=== PATIENT | male | born 1985 | race Caucasian/White ===

== ENCOUNTER 2020-10-16 08:25 | Emergency (ER) | payer SELFPAY ==
[2020-10-16 08:37] VITALS: BP 182/116; PULSE 90; RESP 20; TEMP 36.9; O2SAT 97; BMI 44.6
--- NOTE | 2020-10-16 08:37 | ED_ITS ---
HPI - Skin/Abscess/Foreign Bdy General Chief complaint: Wound/Laceration Stated complaint: abscess Time Seen by Provider: 10/16/20 08:37 Source: patient Mode of arrival: ambulatory Limitations: language barrier History of Present Illness HPI narrative: abscess to left buttock, started 3 days prior Onset (ago): day(s) Tetanus up to date: unsure Location: buttocks Severity: moderate Quality: burning Pain Consistency: constant Relieving factors: none Associated symptoms: denies other symptoms Related Data Previous Rx's Medication Instructions Recorded cephalexin [Keflex] 500 mg PO QID #28 cap 10/16/20 Allergies Allergy/AdvReac Type Severity Reaction Status Date / Time aspirin [ASPIRIN] Allergy Unknown UNK, Verified 10/16/20 08:41 anaphylaxis Review of Systems Constitutional: Constitutional: Reports no additional constitutional complaints Eyes: Eyes: Reports no additional eye complaints ENT: Denies dizziness Cardiovascular: Cardiovascular: Reports no additional cardiovascular complaints Respiratory: Respiratory: Reports as per HPI Gastrointestinal: Gastrointestinal: Reports no additional gastrointestinal complaints Musculoskeletal: Musculoskeletal: Reports no additional musculoskeletal complaints Integumentary/Breasts: Skin/Breast: Denies rash Neurologic: Reports system reviewed and no additional complaints, except as documented, Denies dizziness and Denies Sensory deficit (Neuro) Psychiatric: Psychiatric: Denies anxiety [facility] Past Medical History Medical History No known health problems Surgical History No significant past surgical history Social History Social History Advance Directives: No Advance Directives Information Provided: No Physical Exam Vital Signs: Vital Signs: Last Vital Signs Temp 98.4 F 10/16/20 08:37 Pulse 90 10/16/20 08:37 Resp 20 10/16/20 08:37 BP 182/116 H 10/16/20 08:37 Pulse Ox 97 10/16/20 08:37 Body Mass Index 44.6 Const: Nutritional Appearance: obese Orientation/consciousness: oriented to person and patient oriented x3 Limitations: no limitations HENMT: Head: Yes normal to inspection Ears: external ears normal General nose exam: Normal external nose present Mouth: Normal oral and palatal mucosa present and oropharynx normal Throat: Yes posterior oropharynx normal Eyes: General: appearance normal, both eyes and all related structures Neck: Other: supple Neck: Yes normal visual inspection Chest: Chest palpation & inspection: normal inspection of the chest Resp: Auscultation: clear to auscultation bilaterally Cardio: Jugular venous distension: no JVD Rate: regular rate Rhythm: regular rhythm Heart sounds: S1 normal heart sound present and S2 normal heart sound present GI: Inspection: Yes normal to inspection Palpation (GI): Soft to palpation, nontender and No hepatosplenomegaly present Auscultation: normal bowel sounds : General: Yes no CVA tenderness Back/Spine/Pelvis: Back: no CVA tenderness Skin: Other: Left buttock with area of erythema and induration and drainage Neuro: General: oriented to person and patient oriented x3 Cranial nerves: Yes CN's II-XII intact bilaterally Motor exam (neuro): 5/5 motor strength present throughout Sensory Exam: No Sensory deficit (Neuro) Extrem: General: Yes normal to inspection Psych: Appearance: grossly normal Procedures Procedure Narrative Procedure Narrative: Patient prepped and draped in sterile fashion. !% epi with lidocaine used for anesthesia. 11 blade used, pus removed, packing placed. Patient tolerated procedure well Discharge Plan Discharge Clinical Impression: Abscess Patient Disposition: Home, Self-Care Instructions: Abscess (ED) Additional Instructions: remove packing in 48 hours in the shower Prescriptions: New cephalexin [Keflex] 750 mg capsule 500 mg PO QID Qty: 28 RF: 0 Referrals: Physician,None [Primary Care Provider] - 2 days Stand Alone Forms: Work/School Release
[2020-10-16] MEDS: cephALEXin 500 MG CAPSULE PO (09:55)
== END 2020-10-16 10:03 | disposition home or self-care (01) ==
PROVIDERS: Emergency Provider Emergency Medicine
DX: L02.31 Cutaneous abscess of buttock (principal); Z79.899 Other long term (current) drug therapy
CPT/HCPCS: 10060; 99283

== ENCOUNTER 2020-10-18 12:03 | Emergency (ER) | payer SELFPAY ==
[2020-10-18 12:15] VITALS: BP 181/123; PULSE 98; RESP 16; TEMP 36.6; O2SAT 98; BMI 45.3
--- NOTE | 2020-10-18 13:07 | ED_ITS ---
HPI - Recheck/Abnormal Lab/Rx General Chief Complaint: Wound/Laceration Stated Complaint: wound check Time Seen by Provider: 10/18/20 12:40 Source: patient Mode of arrival: ambulatory Limitations: no limitations History of Present Illness complaint: wound re-check Initial visit (ago): day(s) (2 days ago) Initial visit for: cellulitis and abscess Returns today for: wound recheck, cellulitis follow-up and needs work/school note Symptoms since prior visit: no new symptoms and improved Context: planned re-check Associated symptoms: none Treatments prior to arrival: other (Patient prescribed Keflex 750 mg q.i.d. taking as prescribed per patient) Related Data Previous Rx's Medication Instructions Recorded cephalexin [Keflex] 500 mg PO QID #28 cap 10/16/20 doxycycline monohydrate 100 mg PO BID 10 Days #20 cap 10/18/20 Allergies Allergy/AdvReac Type Severity Reaction Status Date / Time aspirin [ASPIRIN] Allergy Unknown UNK, Verified 10/16/20 08:41 anaphylaxis Review of Systems Review of Systems: Constitutional : No Fever, No Chills, Cardiovascular : No Chest Pain, No SOB Respiratory : No Dyspnea Gastrointestinal : No abdominal pain Musculoskeletal : No Joint Swelling Skin : positive skin wound/cellulitis, No laceration, No Foreign bodies, No rash Neuro : No Weakness, No Numbness/tingling Psych : No SI/HI/thoughts of self injury Yes all other systems are reviewed and are negative [facility] Past Medical History Attestation statement: The following information was validated with the patient. Medical History No known health problems Surgical History No significant past surgical history Social History Social History Smoking Status: Current every day smoker Use of substances other than those prescribed or required for medical reasons: Yes Substance Use Type: Marijuana Substance Use Frequency: Socially Advance Directives: No Advance Directives Information Provided: No Physical Exam Vital Signs: Vital Signs: Last Vital Signs Temp 97.9 F 10/18/20 12:15 Pulse 98 10/18/20 12:15 Resp 16 10/18/20 12:15 BP 181/123 H 10/18/20 12:15 Pulse Ox 98 10/18/20 12:15 Body Mass Index 45.3 vital signs have been reviewed as normal and appeared to be correct. Blood pressure hypertensive at 188/123. Heart rate normal. Respiration rate normal. Temperature normal. Oxygen saturation normal. Appearance: Alert. Oriented X3. No acute distress. Head: Normal external exam. Normocephalic. Atraumatic. No Sorto signs noted. No raccoon eyes noted Eyes: PERRLA. EOMI. Conjunctiva and sclera normal. Eyelids normal. ENT: Pharynx normal. Uvula midline. Moist mucous membranes. Neck: Normal inspection. Neck supple. FROM. No adenopathy. Thyroid Normal. No meningeal signs. No neck mass noted. CVS: Normal heart rate and rhythm. Heart sound normal. No murmurs noted. Pulses normal throughout. Respiratory: No respiratory distress. Painless inspiration. Breath sounds normal. Back: Full range of motion noted. : To left buttocks patient has wound with mild surrounding erythema around the margins with packing in place no purulent drainage/fluctuance noted or active bleeding at this time. Skin: Skin warm and dry. Normal skin color. Normal skin turgor. No rashes/lesions/lacerations noted. Extremities: Extremities exhibit normal range of motion. Extremities nontender. Neuro: Oriented X 3. No motor deficit. No sensory deficit. Reflexes normal. Course Course Course Narrative: 34-year-old male presenting to the ED for wound recheck/packing removal. It was I&D 2 days ago was placed on Keflex 750 mg q.i.d. taking as prescribed. Denies any additional complaints or concerns at this time. Reports improvement in symptoms. On exam patient has mild surrounding erythema to the wound margins otherwise no purulent drainage or active bleeding or fluctuance noted. Patient was noted to be hypertensive at 181/123 although denies any cardiac related complaints. Therefore we will not be repacked at this time clean dressing placed wound was irrigated and instructed to continue taking his antibiotics as prescribed and to return if any new or worsening symptoms to follow up with primary care provider. Patient understands agrees with this plan. MDM - Recheck/Abnormal Lab/Rx Medical Records Attestation: I reviewed the patient's medical records. Discharge Plan Discharge Clinical Impression: Visit for wound check, Hypertension Patient Disposition: Home, Self-Care Instructions: Wound Infection (ED), Hypertension (ED) Prescriptions: New doxycycline monohydrate 100 mg capsule 100 mg PO BID 10 Days Qty: 20 RF: 0 No Action cephalexin [Keflex] 750 mg capsule 500 mg PO QID Qty: 28 RF: 0 Referrals: Physician,None [Primary Care Provider] - 2 days (Your PCP follow-up for recheck blood pressure within a week) Stand Alone Forms: Work/School Release Print Language: Indian
== END 2020-10-18 13:34 | disposition home or self-care (01) ==
PROVIDERS: Emergency Provider Emergency Medicine Emergency Medical Services
DX: Z48.00 Encounter for change or removal of nonsurgical wound dressing (principal); I10 Essential (primary) hypertension; F12.90 Cannabis use, unspecified, uncomplicated; Z79.899 Other long term (current) drug therapy
CPT/HCPCS: 99283

== ENCOUNTER 2020-12-08 07:58 | Emergency (ER) | payer OTHER, SELFPAY ==
--- NOTE | ~2020-12-08 | XR_ITS ---
EXAMINATION: XR CHEST CLINICAL INFORMATION: Chest pain. COMPARISON: Chest 01/26/2019. TECHNIQUE: Frontal view of the chest was obtained. FINDINGS: No significant abnormality is noted involving the heart, lungs, mediastinum, bony thorax or soft tissues. XR/XR chest 1V IMPRESSION: Unremarkable chest exam.
--- NOTE | 2020-12-08 08:03 | ECG_ITS ---
Test Reason : CHEST PAIN Blood Pressure : / mmHG Vent. Rate : 090 BPM Atrial Rate : 090 BPM P-R Int : 164 ms QRS Dur : 084 ms QT Int : 368 ms P-R-T Axes : 049 023 067 degrees QTc Int : 450 ms Normal sinus rhythm Normal ECG No previous ECGs available Referred By: Monserrat Caldera Electronically Signed By:AMY ARCE
[2020-12-08 08:05] VITALS: BP 185/117; PULSE 84; RESP 12; TEMP 36.9; O2SAT 99; BMI 98.0
[2020-12-08 08:17] VITALS: BP 185/117; PULSE 91; RESP 12; O2SAT 99
--- NOTE | 2020-12-08 08:18 | ED_ITS ---
HPI - Chest Pain General Chief Complaint: Chest Pain Stated Complaint: CHEST PAIN Time Seen by Provider: 12/08/20 08:03 Source: patient Mode of arrival: ambulatory Limitations: no limitations History of Present Illness HPI narrative: 34 y/o male with history childhood asthma, obesity, active smoker who presents to the ER with left sided chest pain that started this morning when he woke up. He states the pain is in the upper left portion of his chest, it is sharp, it comes and goes and it radiates to both of his arms. At it's worst it was 8/10 this morning, currently a 6/10. He is not SOB, coughing, nauseated or having any abdominal pain. MD complaint: chest pain Pertinent past history: asthma Onset (ago): hour(s) (3) Timing of current episode: episodic Prior episodes: No Onset: during rest Pain location: substernal and left chest Pain radiation: right arm and left arm Severity: moderate Pain scale (0-10): 6 Quality: sharp Relieving factors: nothing Exacerbating factors: nothing Treatment prior to arrival: none Risk Factors Coronary artery disease risk factors: smoking history Thoracic aortic dissection risk factors: none Related Data Previous Rx's Medication Instructions Recorded cephalexin [Keflex] 500 mg PO QID #28 cap 10/16/20 doxycycline monohydrate 100 mg PO BID 10 Days #20 cap 10/18/20 albuterol sulfate [Ventolin HFA] 2 puff INHALATION Q4-6H PRN #6.7 g 12/08/20 hydrochlorothiazide 12.5 mg PO QAM #30 tab 12/08/20 prednisone 10 mg PO PER PKG DIR #48 ea 12/08/20 Allergies Allergy/AdvReac Type Severity Reaction Status Date / Time aspirin [ASPIRIN] Allergy Unknown UNK, Verified 10/16/20 08:41 anaphylaxis Review of Systems Review of Systems: Constitutional: No Fever, No Chills ENT/Mouth: No sore throat, No Rhinorrhea, No Swallowing Difficulty Eyes: No Eye Pain, No Swelling, No Redness Cardiovascular: + Chest Pain, No SOB, No Orthopnea, No Edema Respiratory: No Cough, No Sputum, + Wheezing, No dyspnea Gastrointestinal: No Nausea, No Vomiting, No Diarrhea, No abdominal Pain Genitourinary: No Dysuria, No Urinary Frequency, No Hematuria Musculoskeletal: No joint pain, No Myalgias Skin: No Skin Lesions, No rash Neuro: No Weakness, No Numbness, No Dizziness, No Headache Psych: No Anxiety/Panic, No Depression Heme/Lymph: No Bruising, No Lymphadenopathy PMFSH Past Medical History Attestation statement: The following information was validated with the patient. Medical History No known health problems Surgical History No significant past surgical history Social History Social History Patient Tobacco Use Status: Current everyday Tobacco user Smoked in Last 30 Days: Yes Use of substances other than those prescribed or required for medical reasons: No Substance Use Type: Marijuana Advance Directives: Yes Advance Directives Information Provided: Yes Advance Directives on File: No Physical Exam Vital Signs: Vital Signs: Last Vital Signs Temp 98.5 F 12/08/20 08:05 Pulse 77 12/08/20 12:00 Resp 16 12/08/20 12:00 BP 150/101 H 12/08/20 12:00 Pulse Ox 98 12/08/20 12:00 Body Mass Index 98.0 Appearance: Alert. Oriented X3. No acute distress. Eyes: Pupils equal, round and reactive to light. ENT: Pharynx normal. Neck: Normal inspection. Neck supple. CVS: Normal heart rate and rhythm. Pulses normal. Respiratory: No respiratory distress. Breath sounds normal. Abdomen: Obese, soft and nontender. +BS x4 Skin: Skin warm and dry. Normal skin color. Normal skin turgor. No rashes. Extremities: No lower extremity edema. Negative Sangeeta's sign. Neuro: Oriented X 3. No motor deficit. No sensory deficit. Course Course Course Narrative: 34 y/o male presenting with sharp intermittent chest pain. EKG is normal. Wheezy on exam with elevated BP. No respiratory distress and no hypoxia. Denies hx hypertension but is overweight, active smoker. No family history of PE or early ACS. Will get CXR and basic lab work up. Will treat with albuterol nebulizer and IV steroids and reassess. Will closely monitor BP. No headache or vision changes. Doubt dissection, pulses are equal. Reevaluation(s) Reevaluation #1: BP remains elevated. Given PO lopressor. Sleeping comfortably at this time getting neb. CXR is negative. Troponin negative, given chest pain is <6 hours will get a 2nd troponin. Reevaluation #2: 2nd troponin is negative. BP improved 150's systolic. Chest pain is resolved. His lungs are now clear. He is stable discharge with treatment for asthma exacerbation and will initiate low dose HCTZ. Dietary modifications were discussed as well as weight loss, smoking cessation and following up with PCP. Patient expressed understanding and will come back to the ER if chest pain recurs or if he develops SOB. MDM - Chest Pain Lab Data Result diagrams: 12/08/20 08:34 12/08/20 08:34 Labs: Lab Results 12/08/20 12/08/20 12/08/20 Range/Units 08:33 08:34 08:34 WBC 8.2 (4.8-10.8) X10*3/uL RBC 6.06 H (4.60-5.80) X10*6/uL Hgb 16.8 (14.0-18.0) g/dl Hct 50.4 (42-52) % MCV 83.2 (80-98) fL MCH 27.7 (27.0-33.0) pg MCHC 33.3 (31.0-36.0) g/dl RDW 12.3 (11.0-16.0) % Plt Count 256 (160-400) X10*3/uL MPV 9.4 (9.4-12.4) fL Immature Gran % (Auto) 0.2 (0.0-0.4) % Neut % (Auto) 53.4 (45-73) % Lymph % (Auto) 31.6 (20-40) % Anderson % (Auto) 7.7 (2-11) % Eos % (Auto) 6.1 H (0-4) % Baso % (Auto) 1.0 (0-2) % Lymph # (Auto) 2.6 (1.2-4.9) X10*3/uL Anderson # (Auto) 0.6 (0.1-1.2) X10*3/uL Eos # (Auto) 0.5 H (0.0-0.4) X10*3/uL Baso # (Auto) 0.1 (0.0-0.2) X10*3/uL Abs Immat Gran (auto) 0.02 (0.00-0.03) X10*3/uL Absolute Neuts (auto) 4.4 (2.0-8.3) X10*3/uL Absolute Nucleated RBC 0.000 (0.0-0.012) X10*3/uL Nucleated RBC % (auto) 0.0 (0.0-0.2) /100WBC Hold Blue Top SEE NOTE Sodium (135-145) mmol/L Potassium (3.3-5.1) mmol/L Chloride (96-108) mmol/L Carbon Dioxide (22-29) mmol/L Anion Gap (12-20) BUN (9-16) mg/dL Creatinine (0.5-1.4) mg/dL Estim Creat Clear Calc Estimated GFR Random Glucose (60-115) mg/dL Calcium (8.4-10.2) mg/dL Magnesium (1.6-2.6) mg/dL Total Bilirubin (0.0-1.0) mg/dL Direct Bilirubin (0.0-0.5) mg/dL AST (5-37) U/L ALT (0-40) U/L Alkaline Phosphatase (39-117) U/L Troponin I High Sens (<3.5-35.0) ng/L B-Natriuretic Peptide (<100) pg/mL Total Protein (6.5-8.0) g/dL Albumin (3.5-5.0) g/dL Urine Color Urine Appearance Urine pH (5.0-8.0) Ur Specific Francisco (1.005-1.025) Urine Protein (NEG-TRACE) MG/DL Urine Glucose (UA) (NEG) MG/DL Urine Ketones (NEG) MG/DL Urine Blood (NEG) Urine Nitrite (NEG) Ur Leukocyte Esterase (NEG) COVID-19 (AYSE) Negative (Negative) COVID-19 Clin Com See Note 12/08/20 12/08/20 12/08/20 Range/Units 08:34 08:34 11:26 WBC (4.8-10.8) X10*3/uL RBC (4.60-5.80) X10*6/uL Hgb (14.0-18.0) g/dl Hct (42-52) % MCV (80-98) fL MCH (27.0-33.0) pg MCHC (31.0-36.0) g/dl RDW (11.0-16.0) % Plt Count (160-400) X10*3/uL MPV (9.4-12.4) fL Immature Gran % (Auto) (0.0-0.4) % Neut % (Auto) (45-73) % Lymph % (Auto) (20-40) % Anderson % (Auto) (2-11) % Eos % (Auto) (0-4) % Baso % (Auto) (0-2) % Lymph # (Auto) (1.2-4.9) X10*3/uL Anderson # (Auto) (0.1-1.2) X10*3/uL Eos # (Auto) (0.0-0.4) X10*3/uL Baso # (Auto) (0.0-0.2) X10*3/uL Abs Immat Gran (auto) (0.00-0.03) X10*3/uL Absolute Neuts (auto) (2.0-8.3) X10*3/uL Absolute Nucleated RBC (0.0-0.012) X10*3/uL Nucleated RBC % (auto) (0.0-0.2) /100WBC Hold Blue Top Sodium 138 (135-145) mmol/L Potassium 4.5 (3.3-5.1) mmol/L Chloride 104 (96-108) mmol/L Carbon Dioxide 25 (22-29) mmol/L Anion Gap 14 (12-20) BUN 18 H (9-16) mg/dL Creatinine 0.93 (0.5-1.4) mg/dL Estim Creat Clear Calc 265.6 Estimated GFR > 60 Random Glucose 105 (60-115) mg/dL Calcium 9.2 (8.4-10.2) mg/dL Magnesium 2.1 (1.6-2.6) mg/dL Total Bilirubin 0.3 (0.0-1.0) mg/dL Direct Bilirubin < 0.2 (0.0-0.5) mg/dL AST 24 (5-37) U/L ALT 37 (0-40) U/L Alkaline Phosphatase 97 (39-117) U/L Troponin I High Sens 3.8 < 3.5 (<3.5-35.0) ng/L B-Natriuretic Peptide 21 (<100) pg/mL Total Protein 7.1 (6.5-8.0) g/dL Albumin 4.2 (3.5-5.0) g/dL Urine Color Urine Appearance Urine pH (5.0-8.0) Ur Specific Francisco (1.005-1.025) Urine Protein (NEG-TRACE) MG/DL Urine Glucose (UA) (NEG) MG/DL Urine Ketones (NEG) MG/DL Urine Blood (NEG) Urine Nitrite (NEG) Ur Leukocyte Esterase (NEG) COVID-19 (AYSE) (Negative) COVID-19 Clin Com 12/08/20 Range/Units 11:26 WBC (4.8-10.8) X10*3/uL RBC (4.60-5.80) X10*6/uL Hgb (14.0-18.0) g/dl Hct (42-52) % MCV (80-98) fL MCH (27.0-33.0) pg MCHC (31.0-36.0) g/dl RDW (11.0-16.0) % Plt Count (160-400) X10*3/uL MPV (9.4-12.4) fL Immature Gran % (Auto) (0.0-0.4) % Neut % (Auto) (45-73) % Lymph % (Auto) (20-40) % Anderson % (Auto) (2-11) % Eos % (Auto) (0-4) % Baso % (Auto) (0-2) % Lymph # (Auto) (1.2-4.9) X10*3/uL Anderson # (Auto) (0.1-1.2) X10*3/uL Eos # (Auto) (0.0-0.4) X10*3/uL Baso # (Auto) (0.0-0.2) X10*3/uL Abs Immat Gran (auto) (0.00-0.03) X10*3/uL Absolute Neuts (auto) (2.0-8.3) X10*3/uL Absolute Nucleated RBC (0.0-0.012) X10*3/uL Nucleated RBC % (auto) (0.0-0.2) /100WBC Hold Blue Top Sodium (135-145) mmol/L Potassium (3.3-5.1) mmol/L Chloride (96-108) mmol/L Carbon Dioxide (22-29) mmol/L Anion Gap (12-20) BUN (9-16) mg/dL Creatinine (0.5-1.4) mg/dL Estim Creat Clear Calc Estimated GFR Random Glucose (60-115) mg/dL Calcium (8.4-10.2) mg/dL Magnesium (1.6-2.6) mg/dL Total Bilirubin (0.0-1.0) mg/dL Direct Bilirubin (0.0-0.5) mg/dL AST (5-37) U/L ALT (0-40) U/L Alkaline Phosphatase (39-117) U/L Troponin I High Sens (<3.5-35.0) ng/L B-Natriuretic Peptide (<100) pg/mL Total Protein (6.5-8.0) g/dL Albumin (3.5-5.0) g/dL Urine Color STRAW Urine Appearance CLEAR Urine pH 6.0 (5.0-8.0) Ur Specific Francisco 1.010 (1.005-1.025) Urine Protein NEG (NEG-TRACE) MG/DL Urine Glucose (UA) NEG (NEG) MG/DL Urine Ketones NEG (NEG) MG/DL Urine Blood NEG (NEG) Urine Nitrite NEG (NEG) Ur Leukocyte Esterase NEG (NEG) COVID-19 (AYSE) (Negative) COVID-19 Clin Com Discharge Plan Discharge Clinical Impression: Asthma exacerbation Qualifiers: Asthma severity: mild Asthma persistence: intermittent Qualified Code(s): J45.21 - Mild intermittent asthma with (acute) exacerbation Hypertension Qualifiers: Hypertension type: unspecified Qualified Code(s): I10 - Essential (primary) hypertension Patient Disposition: Home, Self-Care Instructions: Asthma (ED), DASH Eating Plan (ED), Hypertension (ED) Additional Instructions: Your EKG and chest x-rays were normal. Take the prescribed steroid taper (prednisone) for an acute asthma exacerbation. Use the prescribed inhaler as needed for shortness of breath. Your blood pressure was very elevated today. Follow the recommended diet modifications, limit your salt intake. Do not smoke cigarettes. Take the prescribed medications each morning for your high blood pressure. You NEED to follow up with a primary care doctor for further management of these problems. If you have recurrent chest pain or develop any difficulty breathing come back to the ER for further evaluation. Isabel electrocardiograma y radiograf?as de t?rax fueron normales. [place] el esteroide recetado (prednisona) para jennifer exacerbaci?n aguda del asma. Use el inhalador recetado seg?n sea necesario para la dificultad para respirar. Tu presi?n arterial estuvo muy elevada hoy. Siga las modificaciones diet?shawn recomendadas, limite isabel consumo de azul. No fu me cigarrillos. [place] los medicamentos recetados todas las ma?anas para la presi?n arterial yaw. NECESITA hacer un seguimiento con un m?dico de atenci?n primaria para un mayor manejo de estos problemas. Prescriptions: New prednisone 10 mg tablets,dose pack 10 mg PO PER PKG DIR Qty: 48 RF: 0 albuterol sulfate [Ventolin HFA] 90 mcg/actuation HFA aerosol inhaler 2 puff inhalation Q4-6H PRN (Reason: shortness of breath or wheezing) Qty: 6.7 RF: 0 hydrochlorothiazide 12.5 mg tablet 12.5 mg PO QAM Qty: 30 RF: 0 No Action doxycycline monohydrate 100 mg capsule 100 mg PO BID 10 Days Qty: 20 RF: 0 cephalexin [Keflex] 750 mg capsule 500 mg PO QID Qty: 28 RF: 0 Stand Alone Forms: Work/School Release Interventions: ED Discharge Assessment Last Done: 12/08/20 12:45 Discharge Date/Time: 12/08/20 12:46 Print Language: Bermudian
[2020-12-08 08:52] LABS: MANUAL DIFF FLAG NO
[2020-12-08 08:53] LABS: Basophils Absolute Auto 0.1 X10*3/uL (0.0-0.2); Eosinophils Absolute Auto 0.5 X10*3/uL (0.0-0.4); Eosinophils Percent Auto 6.1 % (0-4); Hematocrit 50.4 % (42-52); Hemoglobin 16.8 g/dl (14.0-18.0); Imm Gran Abs Auto 0.02 X10*3/uL (0.00-0.03); Imm Gran Pct Auto 0.2 % (0.0-0.4); Lymphocytes Absolute Auto 2.6 X10*3/uL (1.2-4.9); Lymphocytes Percent Auto 31.6 % (20-40); Mean Corpuscular HGB Conc 33.3 g/dl (31.0-36.0); Mean Corpuscular Hemoglobin 27.7 pg (27.0-33.0); Mean Corpuscular Volume 83.2 fL (80-98); Mean Platelet Volume 9.4 fL (9.4-12.4); Monocytes Absolute Auto 0.6 X10*3/uL (0.1-1.2); Monocytes Percent Auto 7.7 % (2-11); Neutrophils Absolute Auto 4.4 X10*3/uL (2.0-8.3); Neutrophils Percent Auto 53.4 % (45-73); Platelet Count 256 X10*3/uL (160-400); Red Blood Count 6.06 X10*6/uL (4.60-5.80); Red Cell Distribution Width 12.3 % (11.0-16.0); White Blood Count 8.2 X10*3/uL (4.8-10.8)
[2020-12-08] MEDS: methylPREDNISolone Sod Succ 125 MG/2 ML VIAL IVPUSH (08:55)
[2020-12-08] MEDS: Acetaminophen 325 MG TABLET 975 MG PO (08:55)
--- NOTE | 2020-12-08 08:58 | PC.NURSE ---
Pt alert, oriented, bp elevated, improved when rechecked. LS wheezes throughout. Iv established, medication given as documented, Pt to xray at this time
[2020-12-08 09:07] LABS: COVID-19 Test Negative (Negative); IDNOW Serial# 9DD0AD1C
[2020-12-08 09:23] LABS: Alanine Aminotransferase 37 U/L (0-40); Albumin Level 4.2 g/dL (3.5-5.0); Alkaline Phosphatase 97 U/L (39-117); Anion Gap 14 (12-20); Aspartate Amino Transferase 24 U/L (5-37); Bilirubin Direct < 0.2 mg/dL (0.0-0.5); Bilirubin Total 0.3 mg/dL (0.0-1.0); Blood Urea Nitrogen 18 mg/dL (9-16); Calcium 9.2 mg/dL (8.4-10.2); Carbon Dioxide 25 mmol/L (22-29); Chloride 104 mmol/L (96-108); Creatinine Clr Calc Pharmacy 265.6; Estimated Glomerular Filt Rate > 60; Glucose Random 105 mg/dL (60-115); Magnesium 2.1 mg/dL (1.6-2.6); Potassium 4.5 mmol/L (3.3-5.1); Sodium 138 mmol/L (135-145); Total Protein 7.1 g/dL (6.5-8.0)
[2020-12-08 09:30] LABS: B Type Natriuretic Peptide 21 pg/mL (<100); Troponin-I High Sensitivity 3.8 ng/L (<3.5-35.0)
[2020-12-08 10:09] VITALS: BP 185/98; PULSE 74; RESP 20; O2SAT 98
[2020-12-08] MEDS: Albuterol Sulfate (0.083%) 2.5 MG/3 ML VIAL.NEB 10 MG INHALE (10:19)
[2020-12-08 10:23] VITALS: PULSE 88; O2SAT 97
[2020-12-08 11:28] VITALS: BP 193/139; PULSE 98
[2020-12-08] MEDS: Metoprolol Tartrate 25 MG TABLET PO (11:28)
--- NOTE | 2020-12-08 11:34 | PC.NURSE ---
LSCTA post updraft, pain 10/21, BP elevated, BLAIR German notified, metropolol given as documented, will reassess. Troponin obtained. Pt resting quietly at this time Lab result pending.
[2020-12-08 11:44] LABS: Glucose Urine UA NEG (NEG); Leukocyte Esterase Urine NEG (NEG); Nitrite Urine NEG (NEG); Urine Blood NEG (NEG); Urine Ketones NEG (NEG); Urine Protein NEG (NEG-TRACE)
[2020-12-08 11:45] LABS: Appearance Urine CLEAR; Color Urine STRAW
[2020-12-08 12:00] VITALS: BP 150/101; PULSE 77; RESP 16; O2SAT 98
[2020-12-08 12:12] LABS: Troponin-I High Sensitivity < 3.5 ng/L (<3.5-35.0)
== END 2020-12-08 12:46 | disposition home or self-care (01) ==
PROVIDERS: Physician Assistant; Emergency Provider Emergency Medicine
DX: R07.9 Chest pain, unspecified (principal); J45.21 Mild intermittent asthma with (acute) exacerbation; I10 Essential (primary) hypertension; Z20.822 Contact with and (suspected) exposure to COVID-19; F17.210 Nicotine dependence, cigarettes, uncomplicated; F12.90 Cannabis use, unspecified, uncomplicated
CPT/HCPCS: 36415; 71045; 80048; 80076; 81003; 83735; 83880; 84484; 85025; 87635; 93005; 94644; 96374; 99285; J2930

== ENCOUNTER 2021-01-11 10:27 | Emergency (ER) | payer OTHER, SELFPAY ==
--- NOTE | ~2021-01-11 | CT_ITS ---
EXAMINATION: CT HEAD WITHOUT CONTRAST CLINICAL INFORMATION: Uncontrolled hypertension with headache COMPARISON: CT brain 01/26/2019 TECHNIQUE: Contiguous axial imaging was performed from the skull base to vertex without intravenous administration of contrast. This CT examination was performed using dose optimization techniques as appropriate, variously including the following: *Automated exposure control *Adjustment of mA and/or kV according to patient size (this includes techniques or standardized protocols for targeted exams where dose is matched to indication/reason for exam; i.e. extremities or head) *Use of iterative reconstruction technique DLP: 739 mGy-cm FINDINGS: There is no evidence of acute intracranial hemorrhage or territorial infarction. No abnormal mass effect or midline shift is seen. [place] to white matter differentiation is well preserved. No extra-axial fluid collections are identified. The ventricles are normal in size. There is no abnormal attenuation within the brain parenchyma. The osseous structures and soft tissues are normal. The mastoid air cells and visualized portions of the paranasal sinuses are well aerated. CT/CT head/brain wo con IMPRESSION: No acute intracranial process seen. No change from 01/26/2019.
[2021-01-11 11:03] VITALS: BP 174/114; PULSE 86; RESP 18; TEMP 37; O2SAT 98; BMI 41.8
--- NOTE | 2021-01-11 12:57 | ECG_ITS ---
Test Reason : DIZINESS Blood Pressure : / mmHG Vent. Rate : 091 BPM Atrial Rate : 091 BPM P-R Int : 160 ms QRS Dur : 088 ms QT Int : 376 ms P-R-T Axes : 025 013 046 degrees QTc Int : 462 ms Normal sinus rhythm Normal ECG When compared with ECG of 08-DEC-2020 08:05, No significant change was found Referred By: Aakash Guevara Electronically Signed By:ALETHEA MIRANDA MD
--- NOTE | 2021-01-11 13:27 | ED.GENADULT ---
HPI - General Adult General Chief complaint: Dizziness Stated complaint: HEADACHE HIGH BLOOD PRESSURE Time Seen by Provider: 01/11/21 12:49 Source: patient Mode of arrival: ambulatory Limitations: no limitations History of Present Illness HPI narrative: patient presents to the ED for headache and elevated blood pressure. Patient admits to being noncompliant with his blood pressure meds. Patient states headache and dizziness since yesterday. Patient denies any nausea or vomiting or recent head trauma. Related Data Previous Rx's Medication Instructions Recorded cephalexin [Keflex] 500 mg PO QID #28 cap 10/16/20 doxycycline monohydrate 100 mg PO BID 10 Days #20 cap 10/18/20 albuterol sulfate [Ventolin HFA] 2 puff INHALATION Q4-6H PRN #6.7 g 12/08/20 hydrochlorothiazide 12.5 mg PO QAM #30 tab 12/08/20 prednisone 10 mg PO PER PKG DIR #48 ea 12/08/20 Allergies Allergy/AdvReac Type Severity Reaction Status Date / Time aspirin [ASPIRIN] Allergy Unknown UNK, Verified 10/16/20 08:41 anaphylaxis Review of Systems Review of Systems: Yes all other systems are reviewed and are negative Constitutional: Constitutional: Reports as per HPI, Reports no additional constitutional complaints and Reports headache(s) Eyes: Eyes: Reports as per HPI and Reports no additional eye complaints ENT: Reports system reviewed and no additional complaints, except as documented, Reports as per HPI and Reports headache(s) Cardiovascular: Cardiovascular: Reports as per HPI and Reports no additional cardiovascular complaints Respiratory: Respiratory: Reports as per HPI and Reports no additional respiratory complaints Gastrointestinal: Gastrointestinal: Reports as per HPI and Reports no additional gastrointestinal complaints Musculoskeletal: Musculoskeletal: Reports no additional musculoskeletal complaints and Reports as per HPI Neurologic: Reports system reviewed and no additional complaints, except as documented, Reports as per HPI, Reports Abnormal speech present and Reports headache(s) Psychiatric: Psychiatric: Reports no additional psychiatric complaints and Reports as per HPI PMF Past Medical History Medical History No known health problems Surgical History No significant past surgical history Social History Social History Patient Tobacco Use Status: Current everyday Tobacco user Substance Use Type: Marijuana Advance Directives: Yes Advance Directives Information Provided: Yes Advance Directives on File: No Physical Exam Vital Signs: Vital Signs: Last Vital Signs Temp 98.6 F 01/11/21 11:03 Pulse 86 01/11/21 11:03 Resp 18 01/11/21 11:03 BP 174/114 H 01/11/21 11:03 Pulse Ox 98 01/11/21 11:03 Body Mass Index 41.8 Const: General: cooperative, healthy appearing, comfortable, no acute distress, well developed, alert, awake and Physically active Orientation/consciousness: patient oriented x3 HENMT: Head: Yes normal to inspection, Yes No palpable skull fracture present, Yes normocephalic, Yes atraumatic, No abrasion, No Acrocyanosis present, No Sorto's sign, No contusion, No cranial bruits, No hematoma, No laceration, No occipital foramen tenderness, No palpable skull fracture, No raccoon eyes, No scalp lesion, No scalp tenderness, No Temporal artery tenderness present and No periorbital ecchymosis Eyes: General: appearance normal, both eyes and all related structures Neck: Neck: Yes normal visual inspection, Yes full ROM, Yes no lymphadenopathy, Yes no meningeal signs, Yes trachea midline, Yes supple and No tender Chest: Chest palpation & inspection: normal inspection of the chest and normal palpation of entire chest wall Resp: Effort & Inspection: normal respiratory effort and able to speak in complete sentences Auscultation: clear to auscultation bilaterally Cardio: Jugular venous distension: no JVD Heart sounds: S1 normal heart sound present and S2 normal heart sound present GI: Inspection: Yes normal to inspection and No abdominal wall ecchymosis Palpation (GI): Soft to palpation, not firm, nontender, no guarding and not rigid : General: No CVA tenderness and Yes no CVA tenderness Back/Spine/Pelvis: Back: no CVA tenderness, No CVA tenderness and No back tenderness Skin: General skin exam: no rashes or lesions noted and elasticity normal Neuro: Other: Negative slurred speech. negative facial droop. Negative pronator drift. All extremities equal strength 5+. Finger to nose and rapid hand movement intact. Negative Romberg General: patient oriented x3, gait normal, Normal light touch and pain sensation and CN's II-XI intact bilaterally Cranial nerves: Yes CN's II-XII intact bilaterally Cognition (Neuro): normal cognition Speech: Abnormal speech present Motor exam (neuro): 5/5 motor strength present throughout Extrem: General: Yes normal to inspection and Yes full ROM Psych: Appearance: grossly normal, well kempt and not disheveled Course Course Course Narrative: negative for neuro deficits but due to uncontrolled blood pressure will be sent for head CT scan. Will have labs to evaluate cardiac and renal function. Patient is given hydrochlorothiazide and Fioricet. Reevaluation(s) Reevaluation #1: Patient refused blood work and does not want to wait for head CT scan results. Patient only wants excuse letter for work. Patient was informed the necessity of blood work to make sure there is no signs of heart attack, kidney injury or any other lab abnormality. He also informed head CT scan was necessary to make sure there was no stroke or bleed, but patient refuses and still like to sign out against medical advice. Patient informed risk of , heart attack, stroke, brain bleed, acute kidney injury and other medical etiologies and he is willing to take that risk and signed out against medical advice. interpreter for the deaf was present for discussion. Time: 13:59 Medical Decision Making [facility] Narrative Medical decision making narrative: uncontrolled high blood pressure ECG Data Interpretation: Normal sinus rhythm. Normal EKG. Ventricular rate 91. Pr interval 160. QRS 88. QTC 462. Negative STEMI Discharge Plan Discharge Clinical Impression: Hypertension, uncontrolled Patient Disposition: Left Against Medical Advice Instructions: Hypertensive Crisis (ED), Hypertension (ED) Additional Instructions: Est? cerrando la sesi?n en contra de los consejos m?dicos. Rechaz? los an?lisis de paul y se neg? a esperar los resultados de la tomograf?a computarizada de la tianna. Regrese al servicio de urgencias inmediatamente si empeora el dolor de tianna, dificultad para hablar, p?rdida de la visi?n, par?lisis de las extremidades, declive facial, dolor en el pecho, dificultad para respirar o cualquier otro s?ntoma preocupante. Cumpla con april medicamentos. Vignesh un seguimiento con isabel PCP Prescriptions: No Action doxycycline monohydrate 100 mg capsule 100 mg PO BID 10 Days Qty: 20 RF: 0 prednisone 10 mg tablets,dose pack 10 mg PO PER PKG DIR Qty: 48 RF: 0 albuterol sulfate [Ventolin HFA] 90 mcg/actuation HFA aerosol inhaler 2 puff inhalation Q4-6H PRN (Reason: shortness of breath or wheezing) Qty: 6.7 RF: 0 hydrochlorothiazide 12.5 mg tablet 12.5 mg PO QAM Qty: 30 RF: 0 cephalexin [Keflex] 750 mg capsule 500 mg PO QID Qty: 28 RF: 0 Stand Alone Forms: Against Medical Advice, Work/School Release Interventions: ED Discharge Assessment Last Done: 01/11/21 14:10 Discharge Date/Time: 01/11/21 14:14 Print Language: [place]
[2021-01-11] MEDS: Butalb/Acetamin/Caff 50/325/40 TABLET 1 TAB PO (13:46)
[2021-01-11] MEDS: hydroCHLOROthiazide 25 MG TABLET PO (13:46)
== END 2021-01-11 14:14 | disposition left against medical advice (07) ==
PROVIDERS: Emergency Provider Emergency Medicine Emergency Medical Services
DX: I10 Essential (primary) hypertension (principal); Z91.14 Patient's other noncompliance with medication regimen
CPT/HCPCS: 70450; 93005; 99284

== ENCOUNTER 2021-01-12 19:46 | Emergency (ER) | payer OTHER, SELFPAY ==
[2021-01-12 20:34] VITALS: BP 228/138; PULSE 90; RESP 16; TEMP 36.5; O2SAT 99; BMI 41.8
[2021-01-12] MEDS: Acetaminophen 325 MG TABLET 650 MG PO (22:05)
--- NOTE | 2021-01-12 23:08 | ED.EXTPRO ---
HPI - Extremity Problem General Chief complaint: Extremity Injury, Upper Stated complaint: swollen left thumb, infected Time Seen by Provider: 01/12/21 23:05 Source: patient Mode of arrival: ambulatory Limitations: no limitations History of Present Illness HPI Narrative: Pt is a 35YO M with no sig past med hx who presents with a nail infection and pain on his left 5th digit. He denies fevers or drainage. Has not soaked it. States it has been there for 2 days. Related Data Previous Rx's Medication Instructions Recorded cephalexin [Keflex] 500 mg PO QID #28 cap 10/16/20 doxycycline monohydrate 100 mg PO BID 10 Days #20 cap 10/18/20 albuterol sulfate [Ventolin HFA] 2 puff INHALATION Q4-6H PRN #6.7 g 12/08/20 hydrochlorothiazide 12.5 mg PO QAM #30 tab 12/08/20 prednisone 10 mg PO PER PKG DIR #48 ea 12/08/20 Allergies Allergy/AdvReac Type Severity Reaction Status Date / Time aspirin [ASPIRIN] Allergy Unknown UNK, Verified 01/12/21 20:33 anaphylaxis Review of Systems Review of Systems: Yes all other systems are reviewed and are negative FOR[facility]LY [facility] Past Medical History Medical History Hypertension No known health problems Surgical History No significant past surgical history Social History Social History Patient Tobacco Use Status: Current everyday Tobacco user Substance Use Type: Marijuana Advance Directives: No Advance Directives Information Provided: No Physical Exam Vital Signs: Vital Signs: Last Vital Signs Temp 97.7 F 01/12/21 20:34 Pulse 86 01/12/21 23:34 Resp 16 01/12/21 23:34 BP 185/118 H 01/12/21 23:34 Pulse Ox 96 01/12/21 23:34 Body Mass Index 41.8 Const: General: cooperative, healthy appearing and comfortable Nutritional Appearance: average body habitus Orientation/consciousness: patient oriented x3 Eyes: General: appearance normal, both eyes and all related structures Neuro: General: patient oriented x3 Extrem: Other: left 5th digit area of infection around nail. Course Course Course Narrative: paronychia, pt also has elevated BP, states he didn't take his meds. Will salomón with digital block. Reevaluation(s) Reevaluation #1: Pt's BP down to 185/118, HR 86, nurse educated pt on the need to take his blood pressure medication. Patient admitted he has not taken in quite a few days. He understands the risks and benefits of not taking his antihypertensives. He has HCTZ at home, he will take it when he gets there and each day after. He was also told to follow up with his PCP next week about his BP. Time: 23:37 Procedures Abscess I/D Site: other (left thumb) Side (if applicable): left Local Anesthetic: lidocaine 2% Amount of anesthesia used (mL): 5 Technique: incised with blade Amount of fluid expressed (mL): 2 Sent for culture/gram staining?: No Irrigation: Yes Packing used?: none Complications: pain Discharge Plan Discharge Clinical Impression: Paronychia of finger Qualifiers: Laterality: left Qualified Code(s): L03.012 - Cellulitis of left finger Patient Disposition: Home, Self-Care Instructions: Paronychia (ED) Additional Instructions: Please keep the area dry and clean and change the bandage to a bandaid tomorrow then change it daily. Prescriptions: No Action doxycycline monohydrate 100 mg capsule 100 mg PO BID 10 Days Qty: 20 RF: 0 prednisone 10 mg tablets,dose pack 10 mg PO PER PKG DIR Qty: 48 RF: 0 albuterol sulfate [Ventolin HFA] 90 mcg/actuation HFA aerosol inhaler 2 puff inhalation Q4-6H PRN (Reason: shortness of breath or wheezing) Qty: 6.7 RF: 0 hydrochlorothiazide 12.5 mg tablet 12.5 mg PO QAM Qty: 30 RF: 0 cephalexin [Keflex] 750 mg capsule 500 mg PO QID Qty: 28 RF: 0
[2021-01-12] MEDS: Lidocaine HCl 2 % 20 ML VIAL 5 ML SUBCUT (23:13)
--- NOTE | 2021-01-12 23:32 | PC.NURSE ---
SPOKE WITH PATIENT ABOUT HIS HIGH BP, ASKED IF HE WAS OUT OF HCTZ THAT WAS RX LAST MONTH. PT ADMITS THAT HE IS NON COMPLIANT, I JUST DON'T WANT TO TAKE IT. EXPLAINED TO PT IN LENGTH HOW ELEVATED BP CAN CAUSE A STROKE, HEART ATTACK AND KIDNEY FAILURE. PT REPORTS THAT HE HAS A FAMILY HISTORY OF STROKES, AND HE UNDERSTANDS THE DAMAGE IT CAUSES. PT ENCOURAGED TO START TAKING MEDICATION AND FOLLOW UP WITH PCP.
[2021-01-12 23:34] VITALS: BP 185/118; PULSE 86; RESP 16; O2SAT 96
== END 2021-01-12 23:41 | disposition home or self-care (01) ==
PROVIDERS: Emergency Provider Internal Medicine
DX: L03.012 Cellulitis of left finger (principal); M79.645 Pain in left finger(s); I10 Essential (primary) hypertension; F17.210 Nicotine dependence, cigarettes, uncomplicated; F12.90 Cannabis use, unspecified, uncomplicated
CPT/HCPCS: 10060; 99284

== ENCOUNTER 2021-05-08 07:52 | Emergency (ER) | payer OTHER, SELFPAY ==
--- NOTE | ~2021-05-08 | XR_ITS ---
EXAMINATION: XR LUMBOSACRAL SPINE CLINICAL INFORMATION: Injury. Pain. COMPARISON: None TECHNIQUE: Three views of the lumbosacral spine. FINDINGS: There is normal lumbar lordosis. The vertebral heights and alignment is normal. There is mild loss of L5-S1 disc height. Rest the disc heights are normal. No visible acute fracture, dislocation or lytic process seen. The SI joints are symmetrical and normal The paravertebral soft tissues are normal. XR/XR lumbar spine 2-3V IMPRESSION: Mild L5-S1 degenerative disc changes. Otherwise unremarkable lumbar spine exam..
[2021-05-08 07:59] VITALS: BP 192/110; PULSE 107; RESP 18; TEMP 36.7; O2SAT 99; BMI 41.8
--- NOTE | 2021-05-08 09:03 | ED.BACK ---
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 Patient tells me on Friday he did a lot of heavy lifting with a friend and when he woke up yesterday he started to experience pain low back. Pain radiates to the bilateral thighs. There is no associated numbness or tingling. No numbness in the groin. No bowel or bladder incontinence. No fevers or chills. The patient is ambulatory. Related Data Previous Rx's Medication Instructions Recorded cephalexin 750 mg capsule (Keflex) 500 mg PO QID #28 cap 10/16/20 doxycycline monohydrate 100 mg 100 mg PO BID 10 Days #20 cap 10/18/20 capsule albuterol sulfate 90 mcg/actuation 2 puff INHALATION Q4-6H PRN #6.7 g 12/08/20 aerosol inhaler (Ventolin HFA) hydrochlorothiazide 12.5 mg tablet 12.5 mg PO QAM #30 tab 12/08/20 prednisone 10 mg tablets in a dose 10 mg PO PER PKG DIR #48 ea 12/08/20 pack acetaminophen 325 mg capsule 650 mg PO Q6H PRN #20 cap 05/08/21 (Tylenol) cyclobenzaprine 10 mg tablet 10 mg PO TID PRN #15 tab 05/08/21 hydrocodone 5 mg-acetaminophen 300 1 tab PO Q6H PRN #5 tab 05/08/21 mg tablet lidocaine 5 % topical patch 1 patch TOPICAL DAILY #15 ea 05/08/21 (Lidoderm) Allergies Allergy/AdvReac Type Severity Reaction Status Date / Time aspirin [ASPIRIN] Allergy Unknown UNK, Verified 01/12/21 20:33 anaphylaxis Review of Systems Review of Systems: Yes all other systems are reviewed and are negative Constitutional: Constitutional: Reports no additional constitutional complaints, Denies body ache(s), Denies chills, Denies fever(s), Denies headache(s) and Denies weakness Eyes: Eyes: Reports no additional eye complaints and Denies change in vision ENT: Reports system reviewed and no additional complaints, except as documented, Denies dizziness, Denies headache(s), Denies nasal congestion, Denies nasal discharge and Denies neck pain Cardiovascular: Cardiovascular: Reports no additional cardiovascular complaints, Denies chest pain, Denies leg edema and Denies dyspnea Respiratory: Respiratory: Reports no additional respiratory complaints, Denies cough and Denies dyspnea Gastrointestinal: Gastrointestinal: Reports no additional gastrointestinal complaints, Denies abdominal pain, Denies diarrhea, Denies nausea and Denies vomiting Genitourinary: Genitourinary: Denies urinary incontinence Musculoskeletal: Musculoskeletal: Reports no additional musculoskeletal complaints, Reports back pain, Denies arthralgias, Denies joint swelling, Denies neck pain, Denies numbness and Denies tingling Integumentary/Breasts: Skin/Breast: Reports system reviewed and no additional complaints, except as docu and Denies rash Neurologic: Reports system reviewed and no additional complaints, except as documented, Denies Abnormal speech present, Denies dizziness, Denies headache(s), Denies numbness, Denies tingling and Denies weakness PMFSH Past Medical History Attestation statement: The following information was validated with the patient. Source: old records reviewed and nursing notes reviewed Medical History Hypertension No known health problems Surgical History No significant past surgical history Social History Social History Patient Tobacco Use Status: Current everyday Tobacco user Substance Use Type: Marijuana Advance Directives: No Physical Exam Vital Signs: Vital Signs: Last Vital Signs Temp 98.1 F 05/08/21 07:59 Pulse 107 H 05/08/21 07:59 Resp 18 05/08/21 09:59 BP 192/110 H 05/08/21 07:59 Pulse Ox 99 05/08/21 07:59 Body Mass Index 41.8 Const: General: cooperative, healthy appearing, comfortable and no acute distress Orientation/consciousness: patient oriented x3 Limitations: no limitations HENMT: Head: Yes normal to inspection Ears: hearing grossly normal bilaterally General nose exam: Normal external nose present Face and sinus: Yes normal facial exam Mouth: Normal oral and palatal mucosa present Throat: Yes posterior oropharynx normal Eyes: General: appearance normal, both eyes and all related structures Pupils: Equal, round and reactive pupils present Neck: Neck: Yes normal visual inspection Chest: Chest palpation & inspection: normal inspection of the chest Resp: Effort & Inspection: normal respiratory effort Auscultation: clear to auscultation bilaterally Cardio: Rate: regular rate Rhythm: regular rhythm Peripheral pulses: Peripheral pulses 2+ throughout GI: Inspection: Yes normal to inspection Palpation (GI): Soft to palpation and nontender Auscultation: normal bowel sounds : General: Yes no CVA tenderness Back/Spine/Pelvis: Other: Midline lumbar tenderness with no step-offs or deformities. There is tenderness of bilateral soft tissue areas of the lumbar spine. Palpable muscle spasm worsened with flexion and extension of lumbar spine. Pain is worsened with bilateral straight leg raise. Back: no CVA tenderness Thoracic/Lumbar Spine: thoracic and lumbar spine normal to inspection Skin: General skin exam: no rashes or lesions noted Neuro: General: patient oriented x3, no focal motor deficits and normal sensation to monofilament Cranial nerves: Yes CN's II-XII intact bilaterally, Yes Equal, round and reactive pupils present, Yes Bilaterally intact EOM present, Yes Nystagmus not present, Yes Normal facial strength present and Yes Midline tongue present Cognition (Neuro): normal cognition Speech: No Abnormal speech present Gait exam (Neuro): Normal gait present Motor exam (neuro): 5/5 motor strength present throughout Sensory Exam: Normal double simultaneous stimulation for sensation Deep tendon reflexes (DTR's): Right patellar reflex intensity grade: 2+, Left patellar reflex intensity grade: 2+, Right ankle reflex intensity grade: 2+ and Left ankle reflex intensity grade: 2+ Extrem: General: Yes normal to inspection Course Course Course Narrative: Low back pain after lifting injury. No neuro deficits or red flag symptoms. Patient is midline tenderness of will check lumbar spine x-ray. Provide analgesia and reassess. 1000-x-ray showed degenerative changes no other acute findings. Likely lumbar strain. Will discharge patient home with supportive care. Reviewed worrisome signs and symptoms of when to return to the emergency department. Comfortable discharge home. Asymptomatic hypertension. Patient can follow with PCP MDM - Back Pain/Injury Medical Records Attestation: I reviewed the patient's medical records. Lab Data Attestation: I reviewed the patient's lab results. Imaging Data lumbar x-ray: Attestation: I personally reviewed and interpreted this imaging study as follows: Radiologist's impression: FINDINGS: There is normal lumbar lordosis. The vertebral heights and alignment is normal. There is mild loss of L5-S1 disc height. Rest the disc heights are normal. No visible acute fracture, dislocation or lytic process seen. The SI joints are symmetrical and normal The paravertebral soft tissues are normal. XR/XR lumbar spine 2-3V IMPRESSION: Mild L5-S1 degenerative disc changes. Otherwise unremarkable lumbar spine exam.. Discharge Plan Discharge Clinical Impression: Strain of lumbar region Patient Disposition: Home, Self-Care Instructions: Low Back Strain (ED), Lower Back Exercises (ED) Additional Instructions: Heat or ice Gentle stretching No heavy lifting or bending Follow-up with primary care doctor as needed Xrays show degenerative changes of the spine that we see with age Blood pressure is elevated. Follow-up with your PCP in regards to this. Prescriptions: New cyclobenzaprine 10 mg tablet 10 mg PO TID PRN (Reason: muscle spasm) Qty: 15 RF: 0 lidocaine [Lidoderm] 5 % adhesive patch,medicated 1 patch topical DAILY Qty: 15 RF: 0 acetaminophen [Tylenol] 325 mg capsule 650 mg PO Q6H PRN (Reason: fever or pain) Qty: 20 RF: 0 hydrocodone-acetaminophen 5-300 mg tablet 1 tab PO Q6H PRN (Reason: pain) Qty: 5 RF: 0 No Action doxycycline monohydrate 100 mg capsule 100 mg PO BID 10 Days Qty: 20 RF: 0 prednisone 10 mg tablets,dose pack 10 mg PO PER PKG DIR Qty: 48 RF: 0 albuterol sulfate [Ventolin HFA] 90 mcg/actuation HFA aerosol inhaler 2 puff inhalation Q4-6H PRN (Reason: shortness of breath or wheezing) Qty: 6.7 RF: 0 hydrochlorothiazide 12.5 mg tablet 12.5 mg PO QAM Qty: 30 RF: 0 cephalexin [Keflex] 750 mg capsule 500 mg PO QID Qty: 28 RF: 0 Referrals: Physician,None [Primary Care Provider] - 2 days Stand Alone Forms: Work/School Release Interventions: ED Discharge Assessment Last Done: 05/08/21 09:59 Discharge Date/Time: 05/08/21 09:59 Print Language: [place]
[2021-05-08] MEDS: Acetaminophen 325 MG TABLET 975 MG PO (09:15)
[2021-05-08 09:59] VITALS: RESP 18
== END 2021-05-08 09:59 | disposition home or self-care (01) ==
PROVIDERS: Emergency Provider Emergency Medicine
DX: S39.012A Strain of muscle, fascia and tendon of lower back, initial encounter (principal); X50.0XXA Overexertion from strenuous movement or load, initial encounter; I10 Essential (primary) hypertension; Y93.9 Activity, unspecified; Y92.9 Unspecified place or not applicable; Y99.9 Unspecified external cause status
CPT/HCPCS: 72100; 99283

== ENCOUNTER 2021-05-17 08:17 | Emergency (ER) | payer OTHER, SELFPAY ==
[2021-05-17 08:24] VITALS: BP 192/119; PULSE 80; RESP 18; TEMP 36.6; BMI 41.8
--- NOTE | 2021-05-17 09:17 | ED.BACK ---
HPI - Back Pain/Injury General Chief Complaint: Back Pain/Injury Stated Complaint: BACK PAIN Time Seen by Provider: 05/17/21 09:15 Source: patient Mode of arrival: ambulatory Limitations: no limitations History of Present Illness HPI Narrative: A 35-year-old male came in for evaluation of back pain and STD exposure. 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 Patient also concerned about unprotected sex with somebody. Patient declined discharge or urinary dysuria. Patient preferred to be treated for STD prophylactically. Related Data Previous Rx's Medication Instructions Recorded cephalexin 750 mg capsule (Keflex) 500 mg PO QID #28 cap 10/16/20 doxycycline monohydrate 100 mg 100 mg PO BID 10 Days #20 cap 10/18/20 capsule albuterol sulfate 90 mcg/actuation 2 puff INHALATION Q4-6H PRN #6.7 g 12/08/20 aerosol inhaler (Ventolin HFA) hydrochlorothiazide 12.5 mg tablet 12.5 mg PO QAM #30 tab 12/08/20 prednisone 10 mg tablets in a dose 10 mg PO PER PKG DIR #48 ea 12/08/20 pack acetaminophen 325 mg capsule 650 mg PO Q6H PRN #20 cap 05/08/21 (Tylenol) cyclobenzaprine 10 mg tablet 10 mg PO TID PRN #15 tab 05/08/21 hydrocodone 5 mg-acetaminophen 300 1 tab PO Q6H PRN #5 tab 05/08/21 mg tablet lidocaine 5 % topical patch 1 patch TOPICAL DAILY #15 ea 05/08/21 (Lidoderm) Allergies Allergy/AdvReac Type Severity Reaction Status Date / Time aspirin [ASPIRIN] Allergy Unknown UNK, Verified 01/12/21 20:33 anaphylaxis Review of Systems Review of Systems: All other systems are reviewed and are negative Constitutional: Reports as per HPI and Reports no additional constitutional complaints Eyes: Reports as per HPI and Reports no additional eye complaints Reports system reviewed and no additional complaints, except as documented Cardiovascular: Reports as per HPI and Reports no additional cardiovascular complaints Respiratory: Reports as per HPI and Reports no additional respiratory complaints Gastrointestinal: Reports as per HPI and Reports no additional gastrointestinal complaints Genitourinary: Reports no additional female genitourinary complaints Musculoskeletal: Reports no additional musculoskeletal complaints Skin/Breast: Reports system reviewed and no additional complaints, except as docu Psychiatric: Reports no additional psychiatric complaints Endocrine: Reports no additional endocrine complaints Hematologic/Lymphatic: Reports no additional hematologic/lymphatic complaints Allergic/Immunologic: Reports no additional allergic/immunologic complaints Reports system reviewed and no additional complaints, except as documented and Reports Abnormal speech present [facility] Past Medical History Medical History Hypertension No known health problems Surgical History No significant past surgical history Social History Social History Patient Tobacco Use Status: Current everyday Tobacco user Substance Use Type: Marijuana Advance Directives: No Advance Directives Information Provided: Yes Physical Exam Vital Signs: Vital Signs: Last Vital Signs Temp 97.8 F 05/17/21 08:24 Pulse 80 05/17/21 08:24 Resp 18 05/17/21 08:24 BP 192/119 H 05/17/21 08:24 Body Mass Index 41.8 Vital signs have been reviewed as appeared to be correct. Blood pressure elevated. Heart rate normal. Respiration rate normal. Temperature normal. Oxygen saturation normal. Appearance: Alert. Oriented X3. No acute distress. Head: Normal external exam. Normocephalic. Atraumatic. No Sorto signs noted. No raccoon eyes noted Eyes: PERRLA. EOMI. Conjunctiva and sclera normal. Eyelids normal. ENT: TM's Normal. Pharynx normal. Uvula midline. Moist mucous membranes. No trismus noted. No drooling noted. No muffled voice noted. Neck: Normal inspection. Neck supple. FROM. No adenopathy. Thyroid Normal. No meningeal signs. No neck mass noted. CVS: Normal heart rate and rhythm. Heart sound normal. No murmurs noted. Pulses normal throughout. Respiratory: No respiratory distress. Painless inspiration. Breath sounds normal. No wheezes/rales/rhonchi noted. Chest nontender. No accessory muscle usage noted or decreased air movement noted. Abdomen: Soft and nontender. Bowel sounds normal in all 4 quadrants. No distention noted. No organomegaly noted. No visible injury noted. Back: No CVA tenderness. Full range of motion noted. Skin: Skin warm and dry. Normal skin color. Normal skin turgor. No rashes/lesions/lacerations noted. Extremities: No lower extremity edema. Extremities exhibit normal range of motion. Extremities nontender. Neuro: Oriented X 3. Cranial nerve exam: II-XII are grossly intact No motor deficit. No sensory deficit. Reflexes normal. Course Course Course Narrative: Assessment and plan. 1. Muscular back pain, rest, NSAIDs, heating pads. 2. STD exposure and patient opted to be treated with ceftriaxone 500 mg IM/doxycycline for 7 days. Discharge Plan Discharge Clinical Impression: Exposure to STD Strain of lumbar region Qualifiers: Encounter type: initial encounter Qualified Code(s): S39.012A - Strain of muscle, fascia and tendon of lower back, initial encounter Patient Disposition: Home, Self-Care Instructions: Muscle Strain (ED), Sexually Transmitted Diseases (ED) Prescriptions: No Action doxycycline monohydrate 100 mg capsule 100 mg PO BID 10 Days Qty: 20 RF: 0 prednisone 10 mg tablets,dose pack 10 mg PO PER PKG DIR Qty: 48 RF: 0 albuterol sulfate [Ventolin HFA] 90 mcg/actuation HFA aerosol inhaler 2 puff inhalation Q4-6H PRN (Reason: shortness of breath or wheezing) Qty: 6.7 RF: 0 hydrochlorothiazide 12.5 mg tablet 12.5 mg PO QAM Qty: 30 RF: 0 cephalexin [Keflex] 750 mg capsule 500 mg PO QID Qty: 28 RF: 0 cyclobenzaprine 10 mg tablet 10 mg PO TID PRN (Reason: muscle spasm) Qty: 15 RF: 0 lidocaine [Lidoderm] 5 % adhesive patch,medicated 1 patch topical DAILY Qty: 15 RF: 0 acetaminophen [Tylenol] 325 mg capsule 650 mg PO Q6H PRN (Reason: fever or pain) Qty: 20 RF: 0 hydrocodone-acetaminophen 5-300 mg tablet 1 tab PO Q6H PRN (Reason: pain) Qty: 5 RF: 0 Referrals: Physician,None [Primary Care Provider] - 2 days Stand Alone Forms: Work/School Release
[2021-05-17] MEDS: cefTRIAXone sodium 500 MG, Lidocaine HCl 1 % MPF 1 ML IM (09:43)
[2021-05-17 11:08] LABS: CT PCR NOT DETECTED (Not Detect.); NG PCR NOT DETECTED (Not Detect.)
== END 2021-05-17 09:49 | disposition home or self-care (01) ==
PROVIDERS: Emergency Provider Emergency Medicine
DX: S39.012A Strain of muscle, fascia and tendon of lower back, initial encounter (principal); I10 Essential (primary) hypertension; Z20.2 Contact with and (suspected) exposure to infections with a predominantly sexual mode of transmission; X50.0XXA Overexertion from strenuous movement or load, initial encounter; Y93.9 Activity, unspecified; Y92.9 Unspecified place or not applicable; Y99.0 Civilian activity done for income or pay
CPT/HCPCS: 87491; 87591; 96372; 99283; 99284; J0696

== ENCOUNTER 2021-07-11 11:52 | Outpatient (REF) | payer OTHER, SELFPAY ==
[2021-07-11 15:18] LABS: COVID-19 Test Positive (Negative)
== END 2021-07-11 11:53 | disposition home or self-care (01) ==
LOC: HO.LAB 11:52
PROVIDERS: Visit Provider Internal Medicine
DX: Z20.822 Contact with and (suspected) exposure to COVID-19 (principal)
CPT/HCPCS: 36415; 87635; C9803

== ENCOUNTER → 2021-11-16 14:51 | Outpatient (BNVA) | payer OTHER, SELFPAY | PROVIDERS: Visit Provider Internal Medicine | DX: S39.012A Strain of muscle, fascia and tendon of lower back, initial encounter (principal); X58.XXXA Exposure to other specified factors, initial encounter | CPT/HCPCS: 99203 ==

== ENCOUNTER → 2021-11-19 08:02 | Outpatient (BNVA) | payer OTHER, SELFPAY | PROVIDERS: Visit Provider Physician Assistant Medical | DX: S39.012A Strain of muscle, fascia and tendon of lower back, initial encounter (principal); X50.0XXA Overexertion from strenuous movement or load, initial encounter | CPT/HCPCS: 99213 ==

== ENCOUNTER → 2021-11-23 11:29 | Outpatient (BNVA) | payer OTHER, SELFPAY | PROVIDERS: Visit Provider Physician Assistant | DX: S39.012A Strain of muscle, fascia and tendon of lower back, initial encounter (principal); X58.XXXA Exposure to other specified factors, initial encounter | CPT/HCPCS: 99213 ==

== ENCOUNTER 2021-12-18 07:16 | Emergency (ER) | payer SELFPAY ==
--- NOTE | ~2021-12-18 | CT_ITS ---
EXAMINATION: CT HEAD WITHOUT CONTRAST CLINICAL INFORMATION: Hypertension. COMPARISON: CT scan of the head 01/11/2021. TECHNIQUE: Contiguous axial imaging was performed from the skull base to vertex without intravenous administration of contrast. This CT examination was performed using dose optimization techniques as appropriate, variously including the following: *Automated exposure control *Adjustment of mA and/or kV according to patient size (this includes techniques or standardized protocols for targeted exams where dose is matched to indication/reason for exam; i.e. extremities or head) *Use of iterative reconstruction technique DLP: 827 mGy-cm FINDINGS: There is no acute intracranial hemorrhage or abnormal extra-axial collection. No intracranial mass effect or midline shift. Lateral and third ventricles are normal. No hydrocephalus. [place]arg[place]-white matter differentiation is preserved and there is no evidence of acute territorial infarct. The calvarium and skull base are intact. Mastoid air cells and middle ear cavities are well aerated. Mild paranasal sinus disease primarily affecting the ethmoid air cells and left frontal sinus. CT/CT head/brain wo con IMPRESSION: Unremarkable examination. No acute intracranial hemorrhage.
[2021-12-18 07:20] VITALS: BP 192/118; PULSE 76; RESP 18; TEMP 36.6; O2SAT 98; BMI 39.0
[2021-12-18 07:51] LABS: MANUAL DIFF FLAG NO
[2021-12-18 07:52] LABS: Basophils Absolute Auto 0.1 X10*3/uL (0.0-0.2); Basophils Percent Auto 1.1 % (0-2); Eosinophils Absolute Auto 0.7 X10*3/uL (0.0-0.4); Eosinophils Percent Auto 6.8 % (0-4); Hematocrit 51.5 % (42.0-52.0); Hemoglobin 17.1 g/dl (14.0-18.0); Imm Gran Abs Auto 0.05 X10*3/uL (0.00-0.03); Imm Gran Pct Auto 0.5 % (0.0-0.4); Lymphocytes Absolute Auto 3.6 X10*3/uL (1.2-4.9); Lymphocytes Percent Auto 33.6 % (20-40); Mean Corpuscular HGB Conc 33.2 g/dl (31.0-36.0); Mean Corpuscular Hemoglobin 28.1 pg (27.0-33.0); Mean Corpuscular Volume 84.7 fL (80.0-98.0); Mean Platelet Volume 9.6 fL (9.4-12.4); Monocytes Absolute Auto 0.8 X10*3/uL (0.1-1.2); Monocytes Percent Auto 7.4 % (2-11); Neutrophils Absolute Auto 5.4 x10*3/uL (2.0-8.3); Neutrophils Percent Auto 50.6 % (45-73); Platelet Count 224 X10*3/uL (160-400); Red Blood Count 6.08 X10*6/uL (4.60-5.80); Red Cell Distribution Width 12.6 % (11.0-16.0); White Blood Count 10.7 X10*3/uL (4.8-10.8)
[2021-12-18 08:02] LABS: COVID-19 Test Positive (Negative); IDNOW Serial# 16C4AD1C
[2021-12-18 08:07] LABS: Alanine Aminotransferase 24 U/L (0-40); Alkaline Phosphatase 68 U/L (39-117); Anion Gap 12 (12-20); Aspartate Amino Transferase 16 U/L (5-37); Bilirubin Total 0.5 mg/dL (0.0-1.0); Blood Urea Nitrogen 10 mg/dL (9-16); Carbon Dioxide 25 mmol/L (22-29); Chloride 107 mmol/L (96-108); Estimated Glomerular Filt Rate > 60; Glucose Random 105 mg/dL (60-115); Influenza A Negative (Negative); Influenza B2 Negative (Negative); Potassium 4.1 mmol/L (3.3-5.1); Sodium 140 mmol/L (135-145); Total Protein 6.6 g/dL (6.5-8.0)
--- NOTE | 2021-12-18 08:23 | ECG_ITS ---
Test Reason : hypertension Blood Pressure : / mmHG Vent. Rate : 083 BPM Atrial Rate : 083 BPM P-R Int : 160 ms QRS Dur : 088 ms QT Int : 386 ms P-R-T Axes : 036 009 062 degrees QTc Int : 453 ms Normal sinus rhythm Normal ECG When compared with ECG of 11-JAN-2021 13:20, No significant change was found Referred By: Paulina Mueller Electronically Signed By:AMY ARCE
[2021-12-18 08:24] VITALS: BP 179/133; PULSE 86; RESP 16; O2SAT 96
--- NOTE | 2021-12-18 08:38 | ED.GENADULT ---
HPI - General Adult General Chief complaint: General Medical Stated complaint: body pain Time Seen by Provider: 12/18/21 08:05 Source: patient Mode of arrival: ambulatory History of Present Illness HPI narrative: 36-year-old male with past medical history of hypertension noncompliant on antihypertensives, presenting to the ED complaining of headache and body aches/myalgias since yesterday. Denies headache being maximal in onset or taking any pain medication [employer]. Admits to mild lightheadedness. Denies cough, fever, chills, chest pain, shortness of breath, abdominal pain, nausea/vomiting, weakness, numbness/tingling Onset (ago): day(s) Related Data Previous Rx's Medication Instructions Recorded cephalexin 750 mg capsule (Keflex) 500 mg PO QID #28 cap 10/16/20 doxycycline monohydrate 100 mg 100 mg PO BID 10 Days #20 cap 10/18/20 capsule albuterol sulfate 90 mcg/actuation 2 puff INHALATION Q4-6H PRN #6.7 g 12/08/20 aerosol inhaler (Ventolin HFA) hydrochlorothiazide 12.5 mg tablet 12.5 mg PO QAM #30 tab 12/08/20 prednisone 10 mg tablets in a dose 10 mg PO PER PKG DIR #48 ea 12/08/20 pack acetaminophen 325 mg capsule 650 mg PO Q6H PRN #20 cap 05/08/21 (Tylenol) cyclobenzaprine 10 mg tablet 10 mg PO TID PRN #15 tab 05/08/21 hydrocodone 5 mg-acetaminophen 300 1 tab PO Q6H PRN #5 tab 05/08/21 mg tablet lidocaine 5 % topical patch 1 patch TOPICAL DAILY #15 ea 05/08/21 (Lidoderm) hydrochlorothiazide 25 mg tablet 25 mg PO DAILY #30 tab 12/18/21 Allergies Allergy/AdvReac Type Severity Reaction Status Date / Time aspirin [ASPIRIN] Allergy Unknown UNK, Verified 01/12/21 20:33 anaphylaxis Review of Systems Review of Systems: Constitutional: No Fever, No Chills, No Fatigue, No Malaise ENT/Mouth: No Ear Pain, No Nasal Congestion, No sore throat, No Rhinorrhea, No Swallowing Difficulty Eyes: No Eye Pain, No Swelling, No Redness, No Discharge, No Vision Changes Cardiovascular: No Chest Pain, No SOB, No Dyspnea on Exertion, No Orthopnea, No Edema, No Palpitations Respiratory: No Cough, No Sputum, No Dyspnea Gastrointestinal: No Nausea, No Vomiting, No Diarrhea, No Constipation, No Abdominal pain Genitourinary: No Dysuria, No Urinary Frequency, No Hematuria, No Urinary Incontinence/retention, No Flank Pain Musculoskeletal: No joint pain, + Myalgias, No Joint Swelling Skin: No Skin Lesions, No rash Neuro: No Weakness, No Numbness, No Paresthesias, No Loss of Consciousness, + lightheaded, + Headache Yes all other systems are reviewed and are negative Neurologic: Denies Abnormal speech present [facility] Past Medical History Attestation statement: The following information was validated with the patient. Medical History Hypertension No known health problems Surgical History No significant past surgical history Social History Social History Alcohol intake: never Patient Tobacco Use Status: Current everyday Tobacco user Use of substances other than those prescribed or required for medical reasons: No Substance Use Type: Marijuana Advance Directives: No Advance Directives Information Provided: No Physical Exam ED Vital Signs: Vital Signs - 24 hr 12/18/21 07:20 12/18/21 08:24 12/18/21 09:43 Temperature 97.8 F 98.0 F Pulse Rate 76 86 68 Respiratory Rate 18 16 16 Blood Pressure 192/118 H 179/133 H 192/103 H Pulse Oximetry 98 96 96 12/18/21 10:58 12/18/21 11:25 Temperature 97.6 F Pulse Rate 66 76 Respiratory Rate 16 16 Blood Pressure 176/107 H 162/90 H Pulse Oximetry 99 98 BMI result Body Mass Index 39.0 Const General: cooperative, healthy appearing, no acute distress, well developed, alert and awake Orientation/consciousness: patient oriented x3 Limitations: no limitations HENMT Head: Yes normal to inspection and Yes atraumatic Ears: hearing grossly normal bilaterally General nose exam: Normal external nose present Face and sinus: Yes normal facial exam Mouth: Normal oral and palatal mucosa present Throat: Yes posterior oropharynx normal and Yes tonsils normal Eyes General: appearance normal, both eyes and all related structures Pupils: Equal, round and reactive pupils present EOM: EOMs intact bilaterally Neck Neck: Yes normal visual inspection and Yes no meningeal signs Resp Effort & Inspection: normal respiratory effort and no respiratory distress Auscultation: clear to auscultation bilaterally, no rales, no rhonchi and no wheezes Cardio Rate: regular rate Heart sounds: S1 normal heart sound present and S2 normal heart sound present GI Inspection: Yes normal to inspection Palpation (GI): Soft to palpation, nontender, no guarding and not rigid General: Yes no CVA tenderness Back/Spine/Pelvis Back: no CVA tenderness Skin Rashes: no rashes Wounds: no wounds Neuro General: patient oriented x3, gait normal, tone normal, moves all extremities, no meningeal signs, no focal motor deficits and CN's II-XI intact bilaterally Cranial nerves: Yes CN's II-XII intact bilaterally, Yes Equal, round and reactive pupils present, Yes Bilaterally intact EOM present and Yes Midline tongue present Cognition (Neuro): normal cognition Speech: No Abnormal speech present Gait exam (Neuro): Normal gait present Motor exam (neuro): 5/5 motor strength present throughout Extrem General: Yes normal to inspection and Yes no pedal edema Course Course Course Narrative: -COVID-19 positive -24--no leukocytosis. Renal function WNL. Labs otherwise at patient's baseline -948--patient's blood pressure still very elevated at 192/103 > will give additional 12.5 mg of p.o. HCTZ -head CT unremarkable. 1131--repeat blood pressure 162/90. 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 On exam hypertensive, NAD, nontoxic appearing, no focal neuro deficits. Denies cardiac complaints. Concern for hypertensive urgency/emergency vs viral syndrome. Lower concern for SAH/meningitis/CVT plan: EKG, labs, COVID-19/influenza testing, head CT, PO hydrochlorothiazide Medical Records Medical records reviewed: Yes I reviewed the patient's medical records. Lab Data Lab results reviewed: Yes I reviewed the patient's lab results. Result diagrams: 12/18/21 07:45 12/18/21 07:45 Labs: Lab Results 12/18/21 12/18/21 12/18/21 Range/Units 07:45 07:45 07:45 WBC 10.7 (4.8-10.8) X10*3/uL RBC 6.08 H (4.60-5.80) X10*6/uL Hgb 17.1 (14.0-18.0) g/dl Hct 51.5 (42.0-52.0) % MCV 84.7 (80.0-98.0) fL MCH 28.1 (27.0-33.0) pg MCHC 33.2 (31.0-36.0) g/dl RDW 12.6 (11.0-16.0) % Plt Count 224 (160-400) X10*3/uL MPV 9.6 (9.4-12.4) fL Immature Gran % (Auto) 0.5 H (0.0-0.4) % Neut % (Auto) 50.6 (45-73) % Lymph % (Auto) 33.6 (20-40) % [place] % (Auto) 7.4 (2-11) % Eos % (Auto) 6.8 H (0-4) % Baso % (Auto) 1.1 (0-2) % Lymph # (Auto) 3.6 (1.2-4.9) X10*3/uL [place] # (Auto) 0.8 (0.1-1.2) X10*3/uL Eos # (Auto) 0.7 H (0.0-0.4) X10*3/uL Baso # (Auto) 0.1 (0.0-0.2) X10*3/uL Abs Immat Gran (auto) 0.05 H (0.00-0.03) X10*3/uL Absolute Neuts (auto) 5.4 (2.0-8.3) x10*3/uL Absolute Nucleated RBC 0.000 (0.0-0.012) X10*3/uL Nucleated RBC % (auto) 0.0 (0.0-0.2) /100WBC Sodium 140 (135-145) mmol/L Potassium 4.1 (3.3-5.1) mmol/L Chloride 107 (96-108) mmol/L Carbon Dioxide 25 (22-29) mmol/L Anion Gap 12 (12-20) BUN 10 (9-16) mg/dL Creatinine 0.93 (0.5-1.4) mg/dL Estim Creat Clear Calc 149.0 Estimated GFR > 60 Random Glucose 105 (60-115) mg/dL Calcium 9.0 (8.4-10.2) mg/dL Magnesium 2.0 (1.6-2.6) mg/dL Total Bilirubin 0.5 (0.0-1.0) mg/dL Direct Bilirubin 0.2 (0.0-0.5) mg/dL AST 16 (5-37) U/L ALT 24 (0-40) U/L Alkaline Phosphatase 68 D (39-117) U/L Troponin I High Sens (<3.5-35.0) ng/L Total Protein 6.6 (6.5-8.0) g/dL Albumin 4.0 (3.5-5.0) g/dL COVID-19 (AYSE) Positive A (Negative) COVID-19 Clin Com See Note Influenza Type A (BILL) (Negative) Influenza Type B (BILL) (Negative) Influenza A & B Note 12/18/21 12/18/21 Range/Units 07:45 07:45 WBC (4.8-10.8) X10*3/uL RBC (4.60-5.80) X10*6/uL Hgb (14.0-18.0) g/dl Hct (42.0-52.0) % MCV (80.0-98.0) fL MCH (27.0-33.0) pg MCHC (31.0-36.0) g/dl RDW (11.0-16.0) % Plt Count (160-400) X10*3/uL MPV (9.4-12.4) fL Immature Gran % (Auto) (0.0-0.4) % Neut % (Auto) (45-73) % Lymph % (Auto) (20-40) % [place] % (Auto) (2-11) % Eos % (Auto) (0-4) % Baso % (Auto) (0-2) % Lymph # (Auto) (1.2-4.9) X10*3/uL [place] # (Auto) (0.1-1.2) X10*3/uL Eos # (Auto) (0.0-0.4) X10*3/uL Baso # (Auto) (0.0-0.2) X10*3/uL Abs Immat Gran (auto) (0.00-0.03) X10*3/uL Absolute Neuts (auto) (2.0-8.3) x10*3/uL Absolute Nucleated RBC (0.0-0.012) X10*3/uL Nucleated RBC % (auto) (0.0-0.2) /100WBC Sodium (135-145) mmol/L Potassium (3.3-5.1) mmol/L Chloride (96-108) mmol/L Carbon Dioxide (22-29) mmol/L Anion Gap (12-20) BUN (9-16) mg/dL Creatinine (0.5-1.4) mg/dL Estim Creat Clear Calc Estimated GFR Random Glucose (60-115) mg/dL Calcium (8.4-10.2) mg/dL Magnesium (1.6-2.6) mg/dL Total Bilirubin (0.0-1.0) mg/dL Direct Bilirubin (0.0-0.5) mg/dL AST (5-37) U/L ALT (0-40) U/L Alkaline Phosphatase (39-117) U/L Troponin I High Sens 4.1 (<3.5-35.0) ng/L Total Protein (6.5-8.0) g/dL Albumin (3.5-5.0) g/dL COVID-19 (AYSE) (Negative) COVID-19 Clin Com Influenza Type A (BILL) Negative (Negative) Influenza Type B (BILL) Negative (Negative) Influenza A & B Note See Note ECG Data Attestation: I personally reviewed and interpreted this ECG as follows: Interpretation: EKG normal sinus rhythm at a rate of 83. QTC 453. No STEMI Discharge Plan Discharge Clinical Impression: COVID-19, Hypertension Patient Disposition: Home, Self-Care Instructions: Chronic Hypertension (DC), COVID-19 (Coronavirus Disease 2019) (ED) Additional Instructions: You have COVID-19. Her blood pressure is also uncontrolled, you need to take blood pressure medications at home and follow-up with her primary care doctor. If her symptoms persist or worsen, fever unresolved with medications, chest pain, shortness of breath, worsening persistent headache, weakness please return to the ED At this time you will be okay for discharge. Please self isolate for 7-14 days. Do not expose yourself to others. You may not go to work or school. Please continue to follow cold instructions and wash your hands frequently. You may take Tylenol / Motrin as directed on the bottle for pain or fever. If you have constant or persistent shortness of breath, fever unresolved with medications, chest pain, or your unable to eat or drink please return to the ED CDC Guidelines for home isolation: - Stay away from others - WEAR A MASK if you are sick AND STAY HOME - Cover your mouth and nose with a tissue when you cough or sneeze. Dispose of tissues in a lined trash can and wash your hands immediately with soap and water for at least 20 seconds. If soap and water are not available, clean hands with alcohol-based hand tile setter supervisor that contains at least 60% alcohol. - Clean your hands often with soap and water for at least 20 seconds - Avoid touching your eyes, nose and mouth with unwashed hands - Do not share dishes, drinking glasses, cups, eating utensils, towels, or bedding with other people in your home. After using these items, wash them thoroughly with soap and water or put in the communications operator. - Clean high-touch surfaces in your isolation area ( sick room and bathroom) every day; let a caregiver clean and disinfect high-touch surfaces in other areas of the home. Clean the area or item with soap and water or another detergent if it is dirty. Then, use a household disinfectant. - Limit contact with pets and animals: If you must care for a pet, wash your hands before and after interacting with them) Tienes COVID-19. Morin presi?n arterial tambi?n est? descontrolada, necesita magdiel medicamentos para la presi?n arterial en casa y hacer un seguimiento con morin m?dico de atenci?n primaria. Si april s?ntomas persisten o empeoran, fiebre no resuelta con medicamentos, dolor de pecho, dificultad para respirar, dolor de tianna persistente que empeora, debilidad, regrese al servicio de urgencias. En thomas momento estar? mercedes para el yaw. A?slese por 7-14 d?as. No te expongas a los dem?s. Es posible que no vaya al trabajo ni a la escuela. Contin?e siguiendo las instrucciones en fr?o y l?vese las miah con frecuencia. Puede magdiel Tylenol/Motrin saurabh se indica en el frasco para el dolor o la fiebre. Si tiene dificultad para respirar john o persistente, fiebre que no se resuelve con medicamentos, dolor en el pecho o no puede comer o beber, regrese al servicio de urgencias. Pautas de los CDC para el aislamiento en el hogar: - Mant?ngase alejado de los dem?s. - USE JENNIFER MASCARILLA si est? enfermo Y QU?DESE EN CASA - C?brase la boca y la nariz con un pa?uelo desechable al toser o estornudar. Deseche los pa?uelos en un bote de basura forrado y l?vese las miah inmediatamente con agua y jab?n lenore al menos 20 segundos. Si no hay agua y jab?n disponibles, l?vese las miah con un desinfectante para miah a base de alcohol que contenga al menos un 60 % de alcohol. - L?vese las miah con frecuencia con agua y jab?n lenore al menos 20 segundos. - Evite tocarse los ojos, la nariz y la boca con las miah sin teddy - No comparta platos, vasos, tazas, utensilios para comer, toallas o ropa de cama con otras personas en morin hogar. Despu?s de usar estos art?culos, l?velos mercedes con agua y jab?n o col?quelos en el [place]. - Limpie las superficies de alto contacto en morin ?ha de aislamiento ( cuarto de enfermos y ba?o) todos los d?as; permita que un cuidador limpie y desinfecte las superficies de alto contacto en otras ?reas del hogar. Limpie el ?ha o art?culo con agua y jab?n u otro detergente si est? sucio. Luego, use un desinfectante dom?stico. - Limite el contacto con mascotas y animales: si debe cuidar jennifer mascota, l?vese las miah antes y despu?s de interactuar con ellos) Prescriptions: New hydrochlorothiazide 25 mg tablet 25 mg PO DAILY Qty: 30 0RF No Action doxycycline monohydrate 100 mg capsule 100 mg PO BID 10 Days Qty: 20 0RF prednisone 10 mg tablets,dose pack 10 mg PO PER PKG DIR Qty: 48 0RF Rx Instructions: Take 4 tabs x4 days, then 3 tabs x4 days, then 2 tabs x4 days, then 1 tab x4 days. discard remainder. albuterol sulfate [Ventolin HFA] 90 mcg/actuation HFA aerosol inhaler 2 puff inhalation Q4-6H PRN (Reason: shortness of breath or wheezing) Qty: 6.7 0RF hydrochlorothiazide 12.5 mg tablet 12.5 mg PO QAM Qty: 30 0RF cephalexin [Keflex] 750 mg capsule 500 mg PO QID Qty: 28 0RF cyclobenzaprine 10 mg tablet 10 mg PO TID PRN (Reason: muscle spasm) Qty: 15 0RF lidocaine [Lidoderm] 5 % adhesive patch,medicated 1 patch topical DAILY Qty: 15 0RF Rx Instructions: leave on most painful area for up to 12 hrs acetaminophen [Tylenol] 325 mg capsule 650 mg PO Q6H PRN (Reason: fever or pain) Qty: 20 0RF hydrocodone-acetaminophen 5-300 mg tablet 1 tab PO Q6H PRN (Reason: pain) Qty: 5 0RF Referrals: Bolivar Adkins MD, DO [Physician] - Physician,None [Primary Care Provider] - Print Language: Frisian
[2021-12-18 08:44] LABS: Bilirubin Direct 0.2 mg/dL (0.0-0.5)
[2021-12-18 08:50] LABS: Troponin-I High Sensitivity 4.1 ng/L (<3.5-35.0)
[2021-12-18] MEDS: Acetaminophen 325 MG TABLET 650 MG PO (08:54)
[2021-12-18] MEDS: hydroCHLOROthiazide 12.5 MG TABLET PO ×2 (08:55→09:56)
[2021-12-18] MEDS: Metoclopramide HCl 10 MG/2 ML VIAL IVPUSH (09:00)
[2021-12-18 09:43] VITALS: BP 192/103; PULSE 68; RESP 16; TEMP 36.7; O2SAT 96
[2021-12-18 10:58] VITALS: BP 176/107; PULSE 66; RESP 16; TEMP 36.4; O2SAT 99
[2021-12-18 11:25] VITALS: BP 162/90; PULSE 76; RESP 16; O2SAT 98
== END 2021-12-18 12:04 | disposition home or self-care (01) ==
PROVIDERS: Physician Assistant; Emergency Provider Emergency Medicine
DX: U07.1 COVID-19 (principal); I10 Essential (primary) hypertension; Z91.14 Patient's other noncompliance with medication regimen; F17.200 Nicotine dependence, unspecified, uncomplicated; F12.90 Cannabis use, unspecified, uncomplicated
CPT/HCPCS: 70450; 80053; 82248; 83735; 84484; 85025; 87502; 87635; 93005; 96374; 99284; J2765

== ENCOUNTER 2022-01-15 08:12 | Emergency (ER) | payer SELFPAY ==
--- NOTE | ~2022-01-15 | XR_ITS ---
EXAMINATION: XR SHOULDER, LEFT CLINICAL INFORMATION: Left shoulder pain COMPARISON: None TECHNIQUE: AP external rotation, Grashey, scapular Y, and axillary views of the left shoulder. FINDINGS: There is no fracture, dislocation or destructive process. XR/XR shoulder LT min 2V IMPRESSION: Unremarkable study.
[2022-01-15 08:26] VITALS: BP 170/90; PULSE 87; RESP 16; TEMP 36.8; O2SAT 98; BMI 39.0
--- NOTE | 2022-01-15 09:32 | ED.EXTPRO ---
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 Patient is left handed. He reports on Friday he was moving which required him to lift lots of heavy objects. He felt okay that day. The next day he woke up pain in the left upper extremity and weakness of the upper extremity. No associated numbness, tingling, swelling, redness, warmth, fevers, chills. Patient denies neck pain or back pain. Related Data Previous Rx's Medication Instructions Recorded cephalexin 750 mg capsule (Keflex) 500 mg PO QID #28 caps 10/16/20 doxycycline monohydrate 100 mg 100 mg PO BID 10 days #20 caps 10/18/20 capsule albuterol sulfate 90 mcg/actuation 2 puff inhalation Q4-6H PRN 12/08/20 aerosol inhaler (Ventolin HFA) shortness of breath or wheezing #6.7 grams hydrochlorothiazide 12.5 mg tablet 12.5 mg PO QAM #30 tabs 12/08/20 prednisone 10 mg tablets in a dose 10 mg PO PER PKG DIR #48 ea 12/08/20 pack acetaminophen 325 mg capsule 650 mg PO Q6H PRN fever or pain 05/08/21 (Tylenol) #20 caps cyclobenzaprine 10 mg tablet 10 mg PO TID PRN muscle spasm #15 05/08/21 tabs hydrocodone 5 mg-acetaminophen 300 1 tab PO Q6H PRN pain #5 tabs 05/08/21 mg tablet lidocaine 5 % topical patch 1 patch topical DAILY #15 ea 05/08/21 (Lidoderm) hydrochlorothiazide 25 mg tablet 25 mg PO DAILY #30 tabs 12/18/21 acetaminophen 325 mg capsule 650 mg PO Q4H PRN pain #30 caps 01/15/22 (Tylenol) cyclobenzaprine 10 mg tablet 10 mg PO TID PRN muscle spasm #14 01/15/22 tabs Allergies Allergy/AdvReac Type Severity Reaction Status Date / Time aspirin [ASPIRIN] Allergy Unknown UNK, Verified 01/12/21 20:33 anaphylaxis Review of Systems Review of Systems: Yes all other systems are reviewed and are negative Constitutional: Constitutional: Reports no additional constitutional complaints, Denies body ache(s), Denies chills, Denies fever(s), Denies headache(s) and Denies weakness Eyes: Eyes: Reports no additional eye complaints and Denies change in vision ENT: Reports system reviewed and no additional complaints, except as documented, Denies dizziness, Denies headache(s), Denies nasal congestion, Denies nasal discharge and Denies neck pain Cardiovascular: Cardiovascular: Reports no additional cardiovascular complaints, Denies chest pain, Denies leg edema and Denies dyspnea Respiratory: Respiratory: Reports no additional respiratory complaints, Denies cough and Denies dyspnea Gastrointestinal: Gastrointestinal: Reports no additional gastrointestinal complaints, Denies abdominal pain, Denies diarrhea, Denies nausea and Denies vomiting Genitourinary: Genitourinary: Denies urinary incontinence Musculoskeletal: Musculoskeletal: Reports no additional musculoskeletal complaints, Denies back pain, Reports arthralgias, Denies joint swelling, Reports limited range of motion, Denies neck pain, Denies numbness and Denies tingling Integumentary/Breasts: Skin/Breast: Reports system reviewed and no additional complaints, except as docu and Denies rash Neurologic: Reports system reviewed and no additional complaints, except as documented, Denies dizziness, Denies headache(s), Denies numbness, Denies tingling and Denies weakness PMFSH Past Medical History Attestation statement: The following information was validated with the patient. Source: old records reviewed and nursing notes reviewed Medical History Hypertension No known health problems Surgical History No significant past surgical history Social History Social History Alcohol intake: never Patient Tobacco Use Status: Current everyday Tobacco user Substance Use Type: Marijuana Advance Directives: No Advance Directives Information Provided: Yes Physical Exam Vital Signs: Vital Signs: Last Vital Signs Temp 98.2 F 01/15/22 08:26 Pulse 87 01/15/22 08:26 Resp 16 01/15/22 08:26 BP 170/90 H 01/15/22 08:26 Pulse Ox 98 01/15/22 08:26 O2 Del Method 01/15/22 08:26 BMI result Body Mass Index 39.0 Const: General: cooperative, healthy appearing, comfortable and no acute distress Orientation/consciousness: patient oriented x3 Limitations: no limitations HEENT: Head: Yes normal to inspection Ears: hearing grossly normal bilaterally Eyes: General: appearance normal, both eyes and all related structures Pupils: Equal, round and reactive pupils present Neck: Neck: Yes normal visual inspection Chest: Chest palpation & inspection: normal inspection of the chest Resp: Effort & Inspection: normal respiratory effort Cardio: Peripheral pulses: Peripheral pulses 2+ throughout Back/Spine/Pelvis: Thoracic/Lumbar Spine: thoracic and lumbar spine normal to inspection Skin: General skin exam: no rashes or lesions noted Neuro: General: patient oriented x3 and moves all extremities Cranial nerves: Yes Equal, round and reactive pupils present Cognition (Neuro): normal cognition Extrem: Other: Unable to elicit any tenderness on exam. There is no obvious redness, warmth or swelling. There are palpable radial and ulnar pulses on the left upper extremity which are normal. Pain has some weakness and discomfort with abduction of the extremity against resistance. General: Yes normal to inspection and Yes capillary refill normal Course Course Course Narrative: X-ray show no acute finding. Consider rotator cuff injury. Will have patient follow-up with Orthopedics. Reviewed worrisome signs and symptoms of when to return to the emergency department. Comfortable discharge home. MDM - Extremity (Nontraumatic) MDM Narrative Medical decision making narrative: 36-year-old male here with reports of left shoulder pain and weakness after lifting taking injury on Friday. Will check x-rays Medical Records Attestation: I reviewed the patient's medical records. Lab Data Attestation: I reviewed the patient's lab results. Imaging Data shoulder strain: Attestation: I personally reviewed and interpreted this imaging study as follows: Radiologist's impression: [address] [address] XRay Report Signed Patient: Aguilar Hemphill MR#: [id number] : 1985 Acct:[id number] Age/Sex: 36 / M ADM Date: 01/15/22 Loc: HO.ED Attending Dr: Ordering Physician: Katelynn Vasquez NP Date of Service: 01/15/22 Procedure(s): XR shoulder LT min 2V Accession Number(s): [id number] cc: Katelynn Vasquez NP~ EXAMINATION: XR SHOULDER, LEFT CLINICAL INFORMATION: Left shoulder pain? COMPARISON: None? TECHNIQUE: AP external rotation, Grashey, scapular Y, and axillary views of the left shoulder. FINDINGS: There is no fracture, dislocation or destructive process.? XR/XR shoulder LT min 2V IMPRESSION: Unremarkable study. Discharge Plan Discharge Clinical Impression: Left shoulder strain Patient Disposition: Home, Self-Care Instructions: Muscle Strain (ED), Rotator Cuff Injury (ED), Rotator Cuff Injury Exercises (DC) Additional Instructions: Heat or ice gentle stretching Follow-up with orthopedics Prescriptions: New cyclobenzaprine 10 mg tablet 10 mg PO TID PRN (Reason: muscle spasm) Qty: 14 0RF acetaminophen [Tylenol] 325 mg capsule 650 mg PO Q4H PRN (Reason: pain) Qty: 30 0RF No Action doxycycline monohydrate 100 mg capsule 100 mg PO BID 10 Days Qty: 20 0RF prednisone 10 mg tablets,dose pack 10 mg PO PER PKG DIR Qty: 48 0RF Rx Instructions: Take 4 tabs x4 days, then 3 tabs x4 days, then 2 tabs x4 days, then 1 tab x4 days. discard remainder. albuterol sulfate [Ventolin HFA] 90 mcg/actuation HFA aerosol inhaler 2 puff inhalation Q4-6H PRN (Reason: shortness of breath or wheezing) Qty: 6.7 0RF hydrochlorothiazide 12.5 mg tablet 12.5 mg PO QAM Qty: 30 0RF cephalexin [Keflex] 750 mg capsule 500 mg PO QID Qty: 28 0RF cyclobenzaprine 10 mg tablet 10 mg PO TID PRN (Reason: muscle spasm) Qty: 15 0RF lidocaine [Lidoderm] 5 % adhesive patch,medicated 1 patch topical DAILY Qty: 15 0RF Rx Instructions: leave on most painful area for up to 12 hrs acetaminophen [Tylenol] 325 mg capsule 650 mg PO Q6H PRN (Reason: fever or pain) Qty: 20 0RF hydrocodone-acetaminophen 5-300 mg tablet 1 tab PO Q6H PRN (Reason: pain) Qty: 5 0RF hydrochlorothiazide 25 mg tablet 25 mg PO DAILY Qty: 30 0RF Referrals: [facility] [Provider Group] Stand Alone Forms: Work/School Release Interventions: ED Discharge Assessment Last Done: 01/15/22 11:57 Discharge Date/Time: 01/15/22 11:57 Print Language: Moroccan
== END 2022-01-15 11:57 | disposition home or self-care (01) ==
PROVIDERS: Emergency Provider Emergency Medicine
DX: S46.912A Strain of unspecified muscle, fascia and tendon at shoulder and upper arm level, left arm, initial encounter (principal); X50.0XXA Overexertion from strenuous movement or load, initial encounter; X50.3XXA Overexertion from repetitive movements, initial encounter; Y93.9 Activity, unspecified; Y92.9 Unspecified place or not applicable; Y99.9 Unspecified external cause status; Z79.899 Other long term (current) drug therapy
CPT/HCPCS: 73030; 99283

== ENCOUNTER 2023-12-01 08:44 | Emergency (ER) | payer SELFPAY ==
[2023-12-01] VITALS (7 sets, daily range): BP systolic 195–219; BP diastolic 108–128; PULSE 78–94; RESP 16–18; TEMP 36.2–36.7; O2SAT 96–99; BMI 45.6
--- NOTE | ~2023-12-01 | CT_ITS ---
EXAMINATION: CT HEAD WITHOUT CONTRAST CLINICAL INFORMATION: Hypertension, headache COMPARISON: CT scan of brain on 12/18/2021 TECHNIQUE: Contiguous axial imaging was performed from the skull base to vertex without intravenous administration of contrast. This CT examination was performed using dose optimization techniques as appropriate, variously including the following: *Automated exposure control *Adjustment of mA and/or kV according to patient size (this includes techniques or standardized protocols for targeted exams where dose is matched to indication/reason for exam; i.e. extremities or head) *Use of iterative reconstruction technique DLP: 703.67 mGy-cm FINDINGS: Ventricles, sulci and cisterns are normal. There is no midline shift, no abnormal intra- or extra- axial fluid accumulation. [place] and white matter differentiation is normal. Bone window images show no evidence of skull fracture. Mild mucosal thickening is seen at the floor of left frontal sinus. Prominent buckling of the nasal septum to the right with formation of a bony spur is seen. Left middle turbinate shows paradoxical curvature. CT/CT head/brain wo IV con IMPRESSION: 1. Unchanged Normal CT scan of the brain. 2. No intracranial hemorrhage or skull fracture is seen. 3. No evidence of space occupying lesion could be found. 4. The current plain CT scan of the brain shows no diagnostic evidence of acute cerebral infarction.
[2023-12-01 10:23] LABS: MANUAL DIFF FLAG NO
[2023-12-01 10:25] LABS: Basophils Absolute Auto 0.1 X10*3/uL (0.0-0.2); Basophils Percent Auto 1.2 % (0-2); Eosinophils Absolute Auto 0.7 X10*3/uL (0.0-0.4); Eosinophils Percent Auto 6.8 % (0-4); Hematocrit 51.3 % (42.0-52.0); Hemoglobin 17.7 g/dl (14.0-18.0); Imm Gran Abs Auto 0.04 X10*3/uL (0.00-0.03); Imm Gran Pct Auto 0.4 % (0.0-0.4); Lymphocytes Absolute Auto 3.3 X10*3/uL (1.2-4.9); Lymphocytes Percent Auto 33.4 % (20-40); Mean Corpuscular HGB Conc 34.5 g/dl (31.0-36.0); Mean Corpuscular Hemoglobin 28.3 pg (27.0-33.0); Mean Corpuscular Volume 82.1 fL (80.0-98.0); Mean Platelet Volume 9.3 fL (9.4-12.4); Monocytes Absolute Auto 0.7 X10*3/uL (0.1-1.2); Monocytes Percent Auto 6.9 % (2-11); Neutrophils Percent Auto 51.3 % (45-73); Platelet Count 216 X10*3/uL (160-400); Red Blood Count 6.25 X10*6/uL (4.60-5.80); Red Cell Distribution Width 12.1 % (11.0-16.0); White Blood Count 9.8 X10*3/uL (4.8-10.8)
[2023-12-01 10:42] LABS: Alanine Aminotransferase 36 U/L (0-40); Albumin Level 4.5 g/dL (3.5-5.0); Alkaline Phosphatase 82 U/L (39-117); Anion Gap 14 (12-20); Aspartate Amino Transferase 26 U/L (5-37); Bilirubin Total 0.6 mg/dL (0.0-1.0); Blood Urea Nitrogen 14 mg/dL (9-16); Calcium 10.2 mg/dL (8.4-10.2); Carbon Dioxide 22 mmol/L (22-29); Chloride 107 mmol/L (96-108); Creatinine Clr Calc Pharmacy 175.8; Estimated Glomerular Filt Rate > 60; Glucose Random 102 mg/dL (60-115); Magnesium 2.1 mg/dL (1.6-2.6); Potassium 3.9 mmol/L (3.3-5.1); Sodium 139 mmol/L (135-145); Total Protein 7.5 g/dL (6.5-8.0)
[2023-12-01 10:45] LABS: Troponin-I High Sensitivity 3.3 ng/L (<3.5-35.0)
--- NOTE | 2023-12-01 13:47 | ED.GENADULT ---
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 as blood pressure was not that high elevated blood pressure since then patient has not seen primary care doctor never had blood pressure checked since earlier today patient has been having frontal headache not feeling good was at work when he checked the blood pressure was elevated in 200 range and came to the ER no vomiting no chest pain does not have any PCP Related Data Previous Rx's ?Medication ?Instructions ?Recorded cephalexin 750 mg capsule (Keflex) 500 mg (0.6667 x 750 mg) PO QID 10/16/20 #28 caps doxycycline monohydrate 100 mg 100 mg PO BID 10 days #20 caps 10/18/20 capsule albuterol sulfate 90 mcg/actuation 2 puff inhalation Q4-6H PRN 12/08/20 aerosol inhaler (Ventolin HFA) shortness of breath or wheezing #6.7 grams hydrochlorothiazide 12.5 mg tablet 12.5 mg PO QAM #30 tabs 12/08/20 prednisone 10 mg tablets in a dose 10 mg PO PER PKG DIR #48 ea 12/08/20 pack acetaminophen 325 mg capsule 650 mg (2 x 325 mg) PO Q6H PRN 05/08/21 (Tylenol) fever or pain #20 caps cyclobenzaprine 10 mg tablet 10 mg PO TID PRN muscle spasm #15 05/08/21 tabs hydrocodone 5 mg-acetaminophen 300 1 tab PO Q6H PRN pain #5 tabs 05/08/21 mg tablet lidocaine 5 % topical patch 1 patch topical DAILY #15 ea 05/08/21 (Lidoderm) hydrochlorothiazide 25 mg tablet 25 mg PO DAILY #30 tabs 12/18/21 acetaminophen 325 mg capsule 650 mg (2 x 325 mg) PO Q4H PRN 01/15/22 (Tylenol) pain #30 caps cyclobenzaprine 10 mg tablet 10 mg PO TID PRN muscle spasm #14 01/15/22 tabs amlodipine 5 mg tablet 5 mg PO DAILY #90 tabs 12/01/23 hydrochlorothiazide 25 mg tablet 25 mg PO QAM #90 tabs 12/01/23 lisinopril 40 mg tablet 40 mg PO DAILY #90 tabs 12/01/23 Allergies Allergy/AdvReac Type Severity Reaction Status Date / Time aspirin [ASPIRIN] Allergy Unknown UNK, Verified 12/01/23 09:04 anaphylaxis Review of Systems Review of Systems: Yes all other systems are reviewed and are negative [facility] Past Medical History Medical History Hypertension No known health problems Surgical History No significant past surgical history Social History Social History Alcohol intake: never Patient Tobacco Use Status: Current everyday Tobacco user Smoked in Last 30 Days: Yes Use of substances other than those prescribed or required for medical reasons: Yes Substance Use Type: Marijuana Substance Use Frequency: Daily Last Used Substance: Days (ago) Advance Directives: No Advance Directives Information Provided: No Do you have a plan to hurt others: No Plan Physical Exam ED Vital Signs: Vital Signs - 24 hr 12/01/23 17:43 12/01/23 18:50 12/01/23 18:51 Temperature 98 F Pulse Rate 88 Respiratory Rate 16 Blood Pressure 218/108 H 218/108 H 218/108 H Pulse Oximetry 99 Oxygen Delivery Method Room Air 12/01/23 19:36 Temperature 97.8 F Pulse Rate 84 Respiratory Rate 18 Blood Pressure 204/116 H Pulse Oximetry Oxygen Delivery Method BMI result Body Mass Index 45.6 Appearance: Alert. Oriented X3. No acute distress. Obese Eyes: PERRLA, ENT: Pharynx normal. Oral Mucosa moist Neck: Normal inspection. Neck supple. CVS: Normal heart rate and rhythm. Pulses normal. Respiratory: No respiratory distress. Equal air entry bilateral, no wheezing/rales/rhonchi Abdomen: Soft and nontender. Bowel sounds are present, no mass palpable, no CVA tenderness Skin: Skin warm and dry. Normal skin color. Normal skin turgor. Extremities: No lower extremity edema. No calf tenderness Neuro: Oriented X 3. No motor deficit. No sensory deficit.No cerebellar signs , cranial nerves II-XII intact Course Course Course Narrative: This is an RME: Additional HPI, ROS, PE not included below will be deferred to primary provider. RME assessment and note performed by: Laurence Flores PA-C This is a 56-cobo-xox-male, with no known medical problems, who presents to the ER with complaints of headache since yesterday. Pt went to HR department where he had his BP checked and it was elevated in the 200s systolically. He is neurologically intact. No chest pain or shortness of breath. Plan: Labs, UA, CT head Medications Administered Discontinued Medications Generic Name Dose Route Start Last Admin Trade Name [place] PRN Reason Stop Dose Admin Clonidine HCl 0.2 mg 12/01/23 18:14 12/01/23 18:50 Clonidine Hcl 0.2 Mg Tablet PO 12/01/23 18:15 0.2 mg ONCE ONE Administration Protocol Lisinopril 40 mg 12/01/23 18:14 12/01/23 18:51 Lisinopril 40 Mg Tablet PO 12/01/23 18:15 40 mg ONCE ONE Administration Protocol Medical Decision Making Medical Decision Making [facility] Narrative: Patient' with accelerated hypertension uncontrolled with no end-organ damage was given clonidine and lisinopril in the ER patient does not want to wait for the blood pressure to get better understand the risk and went home Differential Diagnosis Differential Diagnoses: The differential diagnosis associated with the presentation includes Accelerated hypertension/SAH/SDH Admission/Observation Consideration of admission/observation: Escalation of care including admission/observation considered Lab Data [facility] Lab Attestation statement: I reviewed the patient's lab results. 12/01/23 10:19 12/01/23 10:19 Labs: Lab Results 12/01/23 12/01/23 Range/Units 10:19 14:09 WBC 9.8 (4.8-10.8) X10*3/uL RBC 6.25 H (4.60-5.80) X10*6/uL Hgb 17.7 (14.0-18.0) g/dl Hct 51.3 (42.0-52.0) % MCV 82.1 (80.0-98.0) fL MCH 28.3 (27.0-33.0) pg MCHC 34.5 (31.0-36.0) g/dl RDW 12.1 (11.0-16.0) % Plt Count 216 (160-400) X10*3/uL MPV 9.3 L (9.4-12.4) fL Immature Gran % (Auto) 0.4 (0.0-0.4) % Neut % (Auto) 51.3 (45-73) % Lymph % (Auto) 33.4 (20-40) % [place] % (Auto) 6.9 (2-11) % Eos % (Auto) 6.8 H (0-4) % Baso % (Auto) 1.2 (0-2) % Lymph # (Auto) 3.3 (1.2-4.9) X10*3/uL [place] # (Auto) 0.7 (0.1-1.2) X10*3/uL Eos # (Auto) 0.7 H (0.0-0.4) X10*3/uL Baso # (Auto) 0.1 (0.0-0.2) X10*3/uL Abs Immat Gran (auto) 0.04 H (0.00-0.03) X10*3/uL Absolute Neuts (auto) 5.0 (2.0-8.3) x10*3/uL Absolute Nucleated RBC 0.000 (0.0-0.012) X10*3/uL Nucleated RBC % (auto) 0.0 (0.0-0.2) /100WBC Sodium 139 (135-145) mmol/L Potassium 3.9 (3.3-5.1) mmol/L Chloride 107 (96-108) mmol/L Carbon Dioxide 22 (22-29) mmol/L Anion Gap 14 (12-20) BUN 14 (9-16) mg/dL Creatinine 0.85 (0.5-1.4) mg/dL Estim Creat Clear Calc 175.8 Estimated GFR > 60 Random Glucose 102 (60-115) mg/dL Calcium 10.2 D (8.4-10.2) mg/dL Magnesium 2.1 (1.6-2.6) mg/dL Total Bilirubin 0.6 (0.0-1.0) mg/dL AST 26 (5-37) U/L ALT 36 (0-40) U/L Alkaline Phosphatase 82 (39-117) U/L Troponin I High Sens 3.3 (<3.5-35.0) ng/L Total Protein 7.5 (6.5-8.0) g/dL Albumin 4.5 (3.5-5.0) g/dL Urine Color Dark Yellow Urine Appearance Clear Urine pH 5.5 (5.0-9.0) Ur Specific [place] 1.025 (1.005-1.025) Urine Protein 30 (1+) H (Neg-Trace) mg/dL Urine Glucose (UA) Negative (Negative) mg/dL Urine Ketones Negative (Negative) mg/dL Urine Blood Negative (Negative) Urine Nitrite Negative (Negative) Ur Leukocyte Esterase Negative (Negative) Urine RBC 0-2 (0-2) /HPF Urine WBC 0-5 (0-5) /HPF Ur Squamous Epith Cells 0-2 (0-2) /HPF Urine Bacteria None Seen (None Seen) Hyaline Casts 0-2 (0-2) /LPF Independent Interpretation I performed an independent interpretation of an: CT Scan Radiology Impression Discussion of test interpretation with radiology: I have reviewed the radiologist's reading. Discharge Plan Discharge Clinical Impression: Severe uncontrolled hypertension Patient Disposition: Home, Self-Care Instructions: Chronic Hypertension (ED) Additional Instructions: Start taking the medication as prescribed for blood pressure Check blood pressure 2 times a day should be less than 135/85 Decrease salt intake Try to lose weight Follow-up with PCP for further management within a week Report to the ER if blood pressure higher than 180/110 Prescriptions: New lisinopril 40 mg tablet 40 mg PO DAILY Qty: 90 0RF hydrochlorothiazide 25 mg tablet 25 mg PO QAM Qty: 90 0RF amlodipine 5 mg tablet 5 mg PO DAILY Qty: 90 0RF No Action doxycycline monohydrate 100 mg capsule 100 mg PO BID 10 Days Qty: 20 0RF prednisone 10 mg tablets,dose pack 10 mg PO PER PKG DIR Qty: 48 0RF Rx Instructions: Take 4 tabs x4 days, then 3 tabs x4 days, then 2 tabs x4 days, then 1 tab x4 days. discard remainder. albuterol sulfate [Ventolin HFA] 90 mcg/actuation HFA aerosol inhaler 2 puff inhalation Q4-6H PRN (Reason: shortness of breath or wheezing) Qty: 6.7 0RF hydrochlorothiazide 12.5 mg tablet 12.5 mg PO QAM Qty: 30 0RF cephalexin [Keflex] 750 mg capsule 500 mg PO QID Qty: 28 0RF cyclobenzaprine 10 mg tablet 10 mg PO TID PRN (Reason: muscle spasm) Qty: 15 0RF lidocaine [Lidoderm] 5 % adhesive patch,medicated 1 patch topical DAILY Qty: 15 0RF Rx Instructions: leave on most painful area for up to 12 hrs acetaminophen [Tylenol] 325 mg capsule 650 mg PO Q6H PRN (Reason: fever or pain) Qty: 20 0RF hydrocodone-acetaminophen 5-300 mg tablet 1 tab PO Q6H PRN (Reason: pain) Qty: 5 0RF hydrochlorothiazide 25 mg tablet 25 mg PO DAILY Qty: 30 0RF cyclobenzaprine 10 mg tablet 10 mg PO TID PRN (Reason: muscle spasm) Qty: 14 0RF acetaminophen [Tylenol] 325 mg capsule 650 mg PO Q4H PRN (Reason: pain) Qty: 30 0RF Referrals: Darinel Andrew MD [Physician] - 1 week Stand Alone Forms: Work/School Release Interventions: ED Discharge Assessment Last Done: 12/01/23 19:36 Discharge Date/Time: 12/01/23 19:38 Print Language: [place] Citizen
[2023-12-01 14:26] LABS: Appearance Urine Clear; Color Urine Dark Yellow; Glucose Urine UA Negative (Negative); Leukocyte Esterase Urine Negative (Negative); Nitrite Urine Negative (Negative); PH 5.5 (5.0-9.0); Specific Gravity - Urine 1.025 (1.005-1.025); UMIC TRIGGER UACC YES; Urine Blood Negative (Negative); Urine Ketones Negative (Negative); Urine Protein 30 (1+) mg/dL (Neg-Trace)
[2023-12-01 14:28] LABS: Bacteria Urine None Seen (None Seen); Hyaline Casts Urine 0-2 /LPF (0-2); RBC Urine 0-2 /HPF (0-2); Squamous Epithelial Cell Urine 0-2 /HPF (0-2); WBC Urine 0-5 /HPF (0-5)
[2023-12-01] MEDS: cloNIDine HCL 0.2 MG TABLET PO (18:50)
[2023-12-01] MEDS: lisinopriL 40 MG TABLET PO (18:51)
== END 2023-12-01 19:38 | disposition home or self-care (01) ==
PROVIDERS: Physician Assistant Medical; Emergency Provider Internal Medicine
DX: I10 Essential (primary) hypertension (principal); R51.9 Headache, unspecified; F17.200 Nicotine dependence, unspecified, uncomplicated; F12.90 Cannabis use, unspecified, uncomplicated; Z79.899 Other long term (current) drug therapy
CPT/HCPCS: 36415; 70450; 80053; 81001; 83735; 84484; 85025; 99284

== ENCOUNTER 2024-03-27 07:59 | Emergency (ER) | payer SELFPAY ==
[2024-03-27 08:15] VITALS: BP 178/115; PULSE 82; RESP 18; TEMP 36.3; O2SAT 98; BMI 45.4
--- NOTE | 2024-03-27 09:19 | ED.GENADULT ---
HPI - General Adult General Chief complaint: Ear Problems Stated complaint: lump on r ear lobe Time Seen by Provider: 03/27/24 09:19 Source: patient and automotive parts interpreter (all interactions with this patient were facilitated with an [facility] automotive parts interpreter) Mode of arrival: ambulatory Limitations: language barrier (all interactions with this patient were facilitated with an [facility] automotive parts interpreter) History of Present Illness ED Provider: Viola Karimi PA-C HPI narrative: Patient is a 38 year old assigned male at with no reported medical history presenting to the emergency department today with a small lump behind his right ear. Patient states that over the last few days he has noticed a lump on the bottom part of his right ear. Patient denies any dizziness, lightheadedness, abdominal pain, nausea, vomiting, fever, chills, blurry vision, double vision, loss of vision, chest pain, difficulty breathing, shortness of breath, back pain, night sweats, pain with urination, increased urinary frequency, increased urinary urgency, blood in his urine or stool, syncope or a near syncopal episode, recent trauma or falls, bowel incontinence, bladder incontinence, or any other complaints at this time. Onset (ago): day(s) Location: right (ear) Radiation: non-radiation Severity: mild Severity scale (1-10): 3 Relieving factors: none Exacerbating factors: none Associated symptoms: denies other symptoms Treatments prior to arrival: none Related Data Previous Rx's ?Medication ?Instructions ?Recorded cephalexin 750 mg capsule (Keflex) 500 mg (0.6667 x 750 mg) PO QID 10/16/20 #28 caps doxycycline monohydrate 100 mg 100 mg PO BID 10 days #20 caps 10/18/20 capsule albuterol sulfate 90 mcg/actuation 2 puff inhalation Q4-6H PRN 12/08/20 aerosol inhaler (Ventolin HFA) shortness of breath or wheezing #6.7 grams hydrochlorothiazide 12.5 mg tablet 12.5 mg PO QAM #30 tabs 12/08/20 prednisone 10 mg tablets in a dose 10 mg PO PER PKG DIR #48 ea 12/08/20 pack acetaminophen 325 mg capsule 650 mg (2 x 325 mg) PO Q6H PRN 05/08/21 (Tylenol) fever or pain #20 caps cyclobenzaprine 10 mg tablet 10 mg PO TID PRN muscle spasm #15 05/08/21 tabs hydrocodone 5 mg-acetaminophen 300 1 tab PO Q6H PRN pain #5 tabs 05/08/21 mg tablet lidocaine 5 % topical patch 1 patch topical DAILY #15 ea 05/08/21 (Lidoderm) hydrochlorothiazide 25 mg tablet 25 mg PO DAILY #30 tabs 12/18/21 acetaminophen 325 mg capsule 650 mg (2 x 325 mg) PO Q4H PRN 01/15/22 (Tylenol) pain #30 caps cyclobenzaprine 10 mg tablet 10 mg PO TID PRN muscle spasm #14 01/15/22 tabs amlodipine 5 mg tablet 5 mg PO DAILY #90 tabs 12/01/23 hydrochlorothiazide 25 mg tablet 25 mg PO QAM #90 tabs 12/01/23 lisinopril 40 mg tablet 40 mg PO DAILY #90 tabs 12/01/23 cephalexin 500 mg capsule 500 mg PO Q6H 7 days #28 caps 03/27/24 Allergies Allergy/AdvReac Type Severity Reaction Status Date / Time aspirin [ASPIRIN] Allergy Unknown UNK, Verified 03/27/24 08:18 anaphylaxis Review of Systems Constitutional: Constitutional: Reports no additional constitutional complaints, Denies chills, Denies fever(s) and Denies night sweats Eyes: Eyes: Reports no additional eye complaints, Denies blurry vision, Denies change in vision, Denies diplopia, Denies eye discharge, Denies loss of vision and Denies eye pain ENT: Denies dizziness Comments: lump on bottom of right ear Cardiovascular: Cardiovascular: Reports no additional cardiovascular complaints, Denies chest pain, Denies lightheadedness, Denies Loss of Consciousness and Denies dyspnea Respiratory: Respiratory: Reports no additional respiratory complaints and Denies dyspnea Gastrointestinal: Gastrointestinal: Reports no additional gastrointestinal complaints, Denies abdominal pain, Denies melena, Denies hematochezia, Denies change in bowel habits and Denies change in stool character Genitourinary: Genitourinary: Reports no additional male genitourinary complaints, Denies hematuria, Denies oliguria, Denies difficulty urinating, Denies dysuria, Denies urinary frequency, Denies urinary hesitancy, Denies urinary incontinence and Denies urinary urgency Musculoskeletal: Musculoskeletal: Reports no additional musculoskeletal complaints, Denies numbness and Denies tingling Neurologic: Denies dizziness, Denies loss of vision, Denies numbness and Denies tingling Psychiatric: Psychiatric: Reports no additional psychiatric complaints Endocrine: Endocrine: Reports no additional endocrine complaints Hematologic/Lymphatic: Hematologic/Lymphatic: Reports no additional hematologic/lymphatic complaints Allergic/Immunologic: Allergic/Immunologic: Reports no additional allergic/immunologic complaints [facility] Past Medical History Attestation statement: The following information was validated with the patient. Source: old records reviewed and nursing notes reviewed Medical History Hypertension No known health problems Surgical History No significant past surgical history Social History Social History Alcohol intake: never Patient Tobacco Use Status: Current everyday Tobacco user Substance Use Type: Marijuana Do you have a plan to hurt others: No Plan Physical Exam ED Vital Signs: Vital Signs - 24 hr 03/27/24 08:15 Temperature 97.3 F Pulse Rate 82 Respiratory Rate 18 Blood Pressure 178/115 H Pulse Oximetry 98 Oxygen Delivery Method Room Air BMI result Body Mass Index 45.4 Const General: cooperative, no acute distress, alert and awake Nutritional Appearance: well nourished Orientation/consciousness: patient oriented x3 Limitations: no limitations HENMT Head: Yes normal to inspection and Yes atraumatic Head images: 1. small lump with erythema and fluctuance Ears: hearing grossly normal bilaterally General nose exam: Normal external nose present, no nasal discharge noted and no epistaxis Face and sinus: Yes normal facial exam, No abrasion and No laceration Mouth: Normal oral and palatal mucosa present, no drooling and no muffled voice Eyes General: appearance normal, both eyes and all related structures Periorbital: periorbital findings normal Eyelids: Yes eyelids normal Conjunctivae: conjunctivae normal Pupils: Equal, round and reactive pupils present EOM: EOMs intact bilaterally Neck Neck: Yes normal visual inspection, Yes full ROM and Yes no lymphadenopathy Chest Chest palpation & inspection: normal inspection of the chest Resp Effort & Inspection: normal respiratory effort and able to speak in complete sentences GI Inspection: Yes normal to inspection Neuro General: patient oriented x3 and moves all extremities Cranial nerves: Yes Equal, round and reactive pupils present Cognition (Neuro): normal cognition Extrem General: Yes normal to inspection, Yes full ROM and Yes capillary refill normal Psych Appearance: grossly normal Mental Status: mental status grossly normal Affect: normal affect Attitude: cooperative Thought process: Normal thought process present Thought content: Normal thought content present Insight: Good insight present (Psych) Procedures Abscess I/D Site: other (ear lobe) Side (if applicable): right Technique: needle aspiration Amount of fluid expressed (mL): 2 Sent for culture/gram staining?: No Irrigation: No Packing used?: none Medical Decision Making Medical Decision Making MDM Narrative: Patient is a 38 year old assigned male at with no reported medical history presenting to the emergency department today with a right ear lobe lump. Patient's physical exam was as noted in the physical exam portion of this note. I explained my physical exam findings to the patient. I answered all questions asked by the patient. Patient's lump was aspirated, without incident, per procedure note. I stressed the importance of the patient taking his medication as directed (either prescribed or as the over the counter packaging recommends). I stressed the importance of the patient following up with his primary care provider and a general surgeon. I stressed the importance of the patient returning to the emergency department immediately if his symptoms were to worsen or if he were to develop any dizziness, shortness of breath, difficulty breathing, chest pain, blurry vision, loss of vision, nausea, vomiting, abdominal pain, fever, chills, back pain, or any other complaints. Patient verbalized agreement and understanding with this treatment plan and discharge. Differential Diagnosis Differential Diagnoses: The differential diagnosis associated with the presentation includes Abscess Admission/Observation Consideration of admission/observation: Escalation of care including admission/observation considered Patient would have been admitted to the hospital had his clinical presentation warranted hospital admission. Prescription Management I considered prescription management with: Antibiotic (patient prescribed an antibiotic for his right ear lobe abscess) Discharge Plan Discharge Clinical Impression: Abscess Patient Disposition: Home, Self-Care Instructions: Abscess Incision and Drainage (DC) Additional Instructions: Follow up with your primary care provider and a general surgeon. Leave the bandage on until tomorrow. Allow the area to continue to drain. Take your antibiotic as prescribed. Return to the emergency department immediately if your symptoms worsen or if you develop any dizziness, shortness of breath, difficulty breathing, chest pain, blurry vision, loss of vision, nausea, vomiting, abdominal pain, fever, chills, back pain, or any other complaints. Haz un seguimiento con tu m?dico de cabecera y un cirujano general. Deje el vendaje puesto hasta ma?antwan. Deje que la rhys siga drenando. [place] el antibi?fely que le hayan recetado. Vuelva a urgencias inmediatamente si april s?ntomas empeoran o si presenta mareos, falta de aliento, dificultad para respirar, dolor tor?cico, visi?n borrosa, p?rdida de visi?n, n?useas, v?mitos, dolor abdominal, fiebre, escalofr?os, dolor de espalda o cualquier otra molestia. Prescriptions: New cephalexin 500 mg capsule 500 mg PO Q6H 7 Days Qty: 28 0RF No Action doxycycline monohydrate 100 mg capsule 100 mg PO BID 10 Days Qty: 20 0RF prednisone 10 mg tablets,dose pack 10 mg PO PER PKG DIR Qty: 48 0RF Rx Instructions: Take 4 tabs x4 days, then 3 tabs x4 days, then 2 tabs x4 days, then 1 tab x4 days. discard remainder. albuterol sulfate [Ventolin HFA] 90 mcg/actuation HFA aerosol inhaler 2 puff inhalation Q4-6H PRN (Reason: shortness of breath or wheezing) Qty: 6.7 0RF hydrochlorothiazide 12.5 mg tablet 12.5 mg PO QAM Qty: 30 0RF cephalexin [Keflex] 750 mg capsule 500 mg PO QID Qty: 28 0RF cyclobenzaprine 10 mg tablet 10 mg PO TID PRN (Reason: muscle spasm) Qty: 15 0RF lidocaine [Lidoderm] 5 % adhesive patch,medicated 1 patch topical DAILY Qty: 15 0RF Rx Instructions: leave on most painful area for up to 12 hrs acetaminophen [Tylenol] 325 mg capsule 650 mg PO Q6H PRN (Reason: fever or pain) Qty: 20 0RF hydrocodone-acetaminophen 5-300 mg tablet 1 tab PO Q6H PRN (Reason: pain) Qty: 5 0RF hydrochlorothiazide 25 mg tablet 25 mg PO DAILY Qty: 30 0RF cyclobenzaprine 10 mg tablet 10 mg PO TID PRN (Reason: muscle spasm) Qty: 14 0RF acetaminophen [Tylenol] 325 mg capsule 650 mg PO Q4H PRN (Reason: pain) Qty: 30 0RF lisinopril 40 mg tablet 40 mg PO DAILY Qty: 90 0RF hydrochlorothiazide 25 mg tablet 25 mg PO QAM Qty: 90 0RF amlodipine 5 mg tablet 5 mg PO DAILY Qty: 90 0RF Referrals: [facility] General Surgeons [Provider Group] (Call to establish and follow up with a general surgeon. Llame para establecer y seguir con un cirujano general.) [facility] Family Medicine [Provider Group] (Call to establish and follow up with a primary care provider. If you already have a primary care provider, please follow up with them. Llame para establecer y hacer un seguimiento con un proveedor de atenci?n primaria. Si ya tiene un proveedor de atenci?n primaria, raymond un seguimiento con ?l.) [facility] [Provider Group] (Call to establish and follow up with a primary care provider. If you already have a primary care provider, please follow up with them. Llame para establecer y hacer un seguimiento con un proveedor de atenci?n primaria. Si ya tiene un proveedor de atenci?n primaria, raymond un seguimiento con ?l.) [facility] Primary [facility] [Provider Group] (Call to establish and follow up with a primary care provider. If you already have a primary care provider, please follow up with them. Llame para establecer y hacer un seguimiento con un proveedor de atenci?n primaria. Si ya tiene un proveedor de atenci?n primaria, raymond un seguimiento con ?l.) Stand Alone Forms: Work/School Release Print Language: Rwandan
[2024-03-27 09:39] VITALS: BP 178/115; PULSE 82; RESP 18; TEMP 36.3; O2SAT 98
== END 2024-03-27 10:53 | disposition home or self-care (01) ==
LOC: HO.ED 10:41
PROVIDERS: Emergency Provider Emergency Medicine
DX: H60.01 Abscess of right external ear (principal)
CPT/HCPCS: 10160; 99282; 99284

== ENCOUNTER 2024-09-06 09:17 | Emergency (ER) | payer BC, SELFPAY ==
[2024-09-06 10:14] VITALS: BP 153/91; PULSE 88; RESP 20; TEMP 36.6; O2SAT 99; BMI 45.1
--- NOTE | 2024-09-06 12:29 | ED.BACK ---
HPI - Back Pain/Injury General Chief Complaint: Back Pain/Injury Stated Complaint: back pain Time Seen by Provider: 09/06/24 12:28 Source: patient and old records reviewed Mode of arrival: ambulatory Limitations: no limitations History of Present Illness ED Provider: AUSTIN HALL Narrative: 38 yo male with PMH of HTN not on blood thinners - he reports he had some low back no trauma reported. He has no numbness, weakness, no b/b incontinence. No thinners, no IVDA. no urinary symptoms no rash. He notes his employer wants a note that he can work. He reports pain with walking. He has no other symptoms or concerns. MD elicited complaint: back pain Onset (ago): day(s) (few) Timing: intermittent Severity: mild Similar Symptoms Previously: Yes Quality: aching Location: lumbar spine Radiation: none Exacerbating factors: movement and walking Relieving factors: none Context: unknown Associated symptoms: denies other symptoms Related Data Previous Rx's ?Medication ?Instructions ?Recorded cephalexin 750 mg capsule (Keflex) 500 mg (0.6667 x 750 mg) PO QID 10/16/20 #28 caps doxycycline monohydrate 100 mg 100 mg PO BID 10 days #20 caps 10/18/20 capsule albuterol sulfate 90 mcg/actuation 2 puff inhalation Q4-6H PRN 12/08/20 aerosol inhaler (Ventolin HFA) shortness of breath or wheezing #6.7 grams hydrochlorothiazide 12.5 mg tablet 12.5 mg PO QAM #30 tabs 12/08/20 prednisone 10 mg tablets in a dose 10 mg PO PER PKG DIR #48 ea 12/08/20 pack acetaminophen 325 mg capsule 650 mg (2 x 325 mg) PO Q6H PRN 05/08/21 (Tylenol) fever or pain #20 caps cyclobenzaprine 10 mg tablet 10 mg PO TID PRN muscle spasm #15 05/08/21 tabs hydrocodone 5 mg-acetaminophen 300 1 tab PO Q6H PRN pain #5 tabs 05/08/21 mg tablet lidocaine 5 % topical patch 1 patch topical DAILY #15 ea 05/08/21 (Lidoderm) hydrochlorothiazide 25 mg tablet 25 mg PO DAILY #30 tabs 12/18/21 acetaminophen 325 mg capsule 650 mg (2 x 325 mg) PO Q4H PRN 01/15/22 (Tylenol) pain #30 caps cyclobenzaprine 10 mg tablet 10 mg PO TID PRN muscle spasm #14 01/15/22 tabs amlodipine 5 mg tablet 5 mg PO DAILY #90 tabs 12/01/23 hydrochlorothiazide 25 mg tablet 25 mg PO QAM #90 tabs 12/01/23 lisinopril 40 mg tablet 40 mg PO DAILY #90 tabs 12/01/23 cephalexin 500 mg capsule 500 mg PO Q6H 7 days #28 caps 03/27/24 cyclobenzaprine 10 mg tablet 10 mg PO TID PRN muscle spasm #20 09/06/24 tabs lidocaine 5 % topical patch 1 patch topical DAILY #30 ea 09/06/24 Allergies Allergy/AdvReac Type Severity Reaction Status Date / Time aspirin [ASPIRIN] Allergy Unknown UNK, Verified 09/06/24 10:15 anaphylaxis Review of Systems Review of Systems: Constitutional : No Weight loss, No Fever, No Chills, ENT/Mouth : No Hearing loss, No Ear Pain, No Nasal Congestion, No Sinus Pain, No Hoarseness, No sore throat, No Rhinorrhea, No Swallowing Difficulty Cardiovascular : No Chest Pain, No SOB Respiratory : No Cough, No Dyspnea Gastrointestinal : No Nausea, No Vomiting, No Diarrhea, No abdominal Pain, No Hematochezia, No Melena Genitourinary : No Dysuria, No Urinary Frequency, No Hematuria, No Urinary Incontinence, Musculoskeletal : positive back pain Skin : No Skin Lesions, No rash Neuro : No Weakness, No Numbness, No Paresthesias, no loss of bowel or bladder incontinence, no saddle anesthesia all other systems reviewed and are negative [facility] Past Medical History Attestation statement: The following information was validated with the patient. Source: old records reviewed Medical History Hypertension No known health problems Surgical History No significant past surgical history Social History Social History Alcohol intake: never Patient Tobacco Use Status: Current everyday Tobacco user Substance Use Type: Marijuana Physical Exam Vital Signs: Vital Signs: Last Vital Signs Temp 98 F 09/06/24 10:14 Pulse 88 09/06/24 10:14 Resp 20 09/06/24 10:14 BP 153/91 H 09/06/24 10:14 Pulse Ox 99 09/06/24 10:14 O2 Del Method Room Air 09/06/24 10:14 BMI result Body Mass Index 45.1 Appearance: Alert. Oriented X3. No acute distress. Eyes: Pupils equal, round and reactive to light. ENT: Pharynx normal. Neck: Normal inspection. Neck supple. CVS: Normal heart rate and rhythm. Pulses normal. Respiratory: No respiratory distress. Breath sounds normal. Abdomen: Soft and nontender. Back: ttp along lumbar paraspinals Skin: Skin warm and dry. Normal skin color. Normal skin turgor. Extremities: No lower extremity edema. No calf ttp Neuro: Oriented X 3. No motor deficit. No sensory deficit. CN2-12 intact Medical Decision Making Medical Decision Making MDM Narrative: 38 yo male with PMH Of HTN, no IVDA, no thinners here with low back pain - no or GI symptoms no red flags on exam he is not toxic and NV intact no cauda equina symptoms - at this time will treat as MSK pain - start on medications for pain and give work note. Given reasons to return Differential Diagnosis Differential Diagnoses: The differential diagnosis associated with the presentation includes back strain no reports of infection no concern for cauda equina External Record Review External record reviewed: Outpatient record Prescription Management I considered prescription management with: Pain Medication and Other Discharge Plan Discharge Clinical Impression: Strain of lumbar region Qualifiers: Encounter type: initial encounter Qualified Code(s): S39.012A - Strain of muscle, fascia and tendon of lower back, initial encounter Patient Disposition: Home, Self-Care Instructions: Acute Low Back Pain (ED), Back Pain (ED) Additional Instructions: return for worsening pain, fevers, numbness, weakness or loss of control of bowel or bladder take tylenol and motrin for pain follow up with your primary care doctor Prescriptions: New cyclobenzaprine 10 mg tablet 10 mg PO TID PRN (Reason: muscle spasm) Qty: 20 0RF lidocaine 5 % adhesive patch,medicated 1 patch topical DAILY Qty: 30 0RF Rx Instructions: leave on most painful area for up to 12 hrs No Action doxycycline monohydrate 100 mg capsule 100 mg PO BID 10 Days Qty: 20 0RF prednisone 10 mg tablets,dose pack 10 mg PO PER PKG DIR Qty: 48 0RF Rx Instructions: Take 4 tabs x4 days, then 3 tabs x4 days, then 2 tabs x4 days, then 1 tab x4 days. discard remainder. albuterol sulfate [Ventolin HFA] 90 mcg/actuation HFA aerosol inhaler 2 puff inhalation Q4-6H PRN (Reason: shortness of breath or wheezing) Qty: 6.7 0RF hydrochlorothiazide 12.5 mg tablet 12.5 mg PO QAM Qty: 30 0RF cephalexin [Keflex] 750 mg capsule 500 mg PO QID Qty: 28 0RF cyclobenzaprine 10 mg tablet 10 mg PO TID PRN (Reason: muscle spasm) Qty: 15 0RF lidocaine [Lidoderm] 5 % adhesive patch,medicated 1 patch topical DAILY Qty: 15 0RF Rx Instructions: leave on most painful area for up to 12 hrs acetaminophen [Tylenol] 325 mg capsule 650 mg PO Q6H PRN (Reason: fever or pain) Qty: 20 0RF hydrocodone-acetaminophen 5-300 mg tablet 1 tab PO Q6H PRN (Reason: pain) Qty: 5 0RF hydrochlorothiazide 25 mg tablet 25 mg PO DAILY Qty: 30 0RF cyclobenzaprine 10 mg tablet 10 mg PO TID PRN (Reason: muscle spasm) Qty: 14 0RF acetaminophen [Tylenol] 325 mg capsule 650 mg PO Q4H PRN (Reason: pain) Qty: 30 0RF lisinopril 40 mg tablet 40 mg PO DAILY Qty: 90 0RF hydrochlorothiazide 25 mg tablet 25 mg PO QAM Qty: 90 0RF amlodipine 5 mg tablet 5 mg PO DAILY Qty: 90 0RF cephalexin 500 mg capsule 500 mg PO Q6H 7 Days Qty: 28 0RF Stand Alone Forms: Work/School Release Print Language: Kazakh
[2024-09-06 12:54] VITALS: BP 153/91; PULSE 88; RESP 20; TEMP 36.6; O2SAT 99
== END 2024-09-06 12:54 | disposition home or self-care (01) ==
PROVIDERS: Emergency Provider Emergency Medicine
DX: S39.012A Strain of muscle, fascia and tendon of lower back, initial encounter (principal); X58.XXXA Exposure to other specified factors, initial encounter; M54.50 Low back pain, unspecified; Y93.9 Activity, unspecified; Y92.9 Unspecified place or not applicable; Y99.9 Unspecified external cause status
CPT/HCPCS: 99282; 99283

== ENCOUNTER 2024-09-08 08:42 | Emergency (ER) | payer BC, SELFPAY ==
[2024-09-08 08:51] VITALS: BP 162/101; PULSE 83; RESP 16; TEMP 36.3; O2SAT 96; BMI 45.4
--- NOTE | 2024-09-08 08:53 | ED.BACK ---
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 no IVDA no thinners he notes he is here because he has no issues other than his employer wants a work note with restrictions MD elicited complaint: back pain Pertinent past history: prior back pain Onset (ago): week(s) (1) Timing: intermittent Severity: mild Similar Symptoms Previously: Yes Quality: other (walking, lifting) Location: lumbar spine Radiation: none Exacerbating factors: movement and walking Relieving factors: none Context: other Associated symptoms: denies other symptoms Treatments prior to arrival: prescription analgesics and other medications Work related injury: No Related Data Previous Rx's ?Medication ?Instructions ?Recorded cephalexin 750 mg capsule (Keflex) 500 mg (0.6667 x 750 mg) PO QID 10/16/20 #28 caps doxycycline monohydrate 100 mg 100 mg PO BID 10 days #20 caps 10/18/20 capsule albuterol sulfate 90 mcg/actuation 2 puff inhalation Q4-6H PRN 12/08/20 aerosol inhaler (Ventolin HFA) shortness of breath or wheezing #6.7 grams hydrochlorothiazide 12.5 mg tablet 12.5 mg PO QAM #30 tabs 12/08/20 prednisone 10 mg tablets in a dose 10 mg PO PER PKG DIR #48 ea 12/08/20 pack acetaminophen 325 mg capsule 650 mg (2 x 325 mg) PO Q6H PRN 05/08/21 (Tylenol) fever or pain #20 caps cyclobenzaprine 10 mg tablet 10 mg PO TID PRN muscle spasm #15 05/08/21 tabs hydrocodone 5 mg-acetaminophen 300 1 tab PO Q6H PRN pain #5 tabs 05/08/21 mg tablet lidocaine 5 % topical patch 1 patch topical DAILY #15 ea 05/08/21 (Lidoderm) hydrochlorothiazide 25 mg tablet 25 mg PO DAILY #30 tabs 12/18/21 acetaminophen 325 mg capsule 650 mg (2 x 325 mg) PO Q4H PRN 01/15/22 (Tylenol) pain #30 caps cyclobenzaprine 10 mg tablet 10 mg PO TID PRN muscle spasm #14 01/15/22 tabs amlodipine 5 mg tablet 5 mg PO DAILY #90 tabs 12/01/23 hydrochlorothiazide 25 mg tablet 25 mg PO QAM #90 tabs 12/01/23 lisinopril 40 mg tablet 40 mg PO DAILY #90 tabs 12/01/23 cephalexin 500 mg capsule 500 mg PO Q6H 7 days #28 caps 03/27/24 cyclobenzaprine 10 mg tablet 10 mg PO TID PRN muscle spasm #20 09/06/24 tabs lidocaine 5 % topical patch 1 patch topical DAILY #30 ea 09/06/24 Allergies Allergy/AdvReac Type Severity Reaction Status Date / Time aspirin [ASPIRIN] Allergy Unknown UNK, Verified 09/08/24 08:52 anaphylaxis Review of Systems Review of Systems: Constitutional : No Weight loss, No Fever, No Chills, ENT/Mouth : No Hearing loss, No Ear Pain, No Nasal Congestion, No Sinus Pain, No Hoarseness, No sore throat, No Rhinorrhea, No Swallowing Difficulty Cardiovascular : No Chest Pain, No SOB Respiratory : No Cough, No Dyspnea Gastrointestinal : No Nausea, No Vomiting, No Diarrhea, No abdominal Pain, No Hematochezia, No Melena Genitourinary : No Dysuria, No Urinary Frequency, No Hematuria, No Urinary Incontinence, Musculoskeletal : positive back pain Skin : No Skin Lesions, No rash Neuro : No Weakness, No Numbness, No Paresthesias, no loss of bowel or bladder incontinence, no saddle anesthesia all other systems reviewed and are negative [facility] Past Medical History Attestation statement: The following information was validated with the patient. Source: old records reviewed Medical History Hypertension No known health problems Surgical History No significant past surgical history Social History Social History Alcohol intake: never Patient Tobacco Use Status: Current everyday Tobacco user Substance Use Type: Marijuana Physical Exam Vital Signs: Appearance: Alert. Oriented X3. No acute distress. steady gait Eyes: Pupils equal, round and reactive to light. ENT: Pharynx normal. Neck: Normal inspection. Neck supple. CVS: Normal heart rate and rhythm. Pulses normal. Respiratory: No respiratory distress. Breath sounds normal. Abdomen: Soft and nontender. Skin: Skin warm and dry. Normal skin color. Normal skin turgor. Extremities: No lower extremity edema. No calf ttp Neuro: Oriented X 3. No motor deficit. No sensory deficit. CN2-12 intact Medical Decision Making Medical Decision Making MDM Narrative: 38 yo male here asking for work note due to back pain he has no complaints no b/b incontinence no saddle anesthesia - no concerns or issues he is up and walking without issue. At this stable for DC with work note Differential Diagnosis Differential Diagnoses: The differential diagnosis associated with the presentation includes sprain, strain, spasm External Record Review External record reviewed: Outpatient record Prescription Management I considered prescription management with: Other Discharge Plan Discharge Clinical Impression: Back pain Qualifiers: Back pain location: low back pain Chronicity: acute Back pain laterality: bilateral Sciatica presence: without sciatica Qualified Code(s): M54.50 - Low back pain, unspecified Patient Disposition: Home, Self-Care Instructions: Back Pain (ED) Additional Instructions: return for any worsening symptoms, rash, fever, loss of control of bowel or bladder or any other concerns numbness Prescriptions: No Action doxycycline monohydrate 100 mg capsule 100 mg PO BID 10 Days Qty: 20 0RF prednisone 10 mg tablets,dose pack 10 mg PO PER PKG DIR Qty: 48 0RF Rx Instructions: Take 4 tabs x4 days, then 3 tabs x4 days, then 2 tabs x4 days, then 1 tab x4 days. discard remainder. albuterol sulfate [Ventolin HFA] 90 mcg/actuation HFA aerosol inhaler 2 puff inhalation Q4-6H PRN (Reason: shortness of breath or wheezing) Qty: 6.7 0RF hydrochlorothiazide 12.5 mg tablet 12.5 mg PO QAM Qty: 30 0RF cephalexin [Keflex] 750 mg capsule 500 mg PO QID Qty: 28 0RF cyclobenzaprine 10 mg tablet 10 mg PO TID PRN (Reason: muscle spasm) Qty: 15 0RF lidocaine [Lidoderm] 5 % adhesive patch,medicated 1 patch topical DAILY Qty: 15 0RF Rx Instructions: leave on most painful area for up to 12 hrs acetaminophen [Tylenol] 325 mg capsule 650 mg PO Q6H PRN (Reason: fever or pain) Qty: 20 0RF hydrocodone-acetaminophen 5-300 mg tablet 1 tab PO Q6H PRN (Reason: pain) Qty: 5 0RF hydrochlorothiazide 25 mg tablet 25 mg PO DAILY Qty: 30 0RF cyclobenzaprine 10 mg tablet 10 mg PO TID PRN (Reason: muscle spasm) Qty: 14 0RF acetaminophen [Tylenol] 325 mg capsule 650 mg PO Q4H PRN (Reason: pain) Qty: 30 0RF lisinopril 40 mg tablet 40 mg PO DAILY Qty: 90 0RF hydrochlorothiazide 25 mg tablet 25 mg PO QAM Qty: 90 0RF amlodipine 5 mg tablet 5 mg PO DAILY Qty: 90 0RF cephalexin 500 mg capsule 500 mg PO Q6H 7 Days Qty: 28 0RF cyclobenzaprine 10 mg tablet 10 mg PO TID PRN (Reason: muscle spasm) Qty: 20 0RF lidocaine 5 % adhesive patch,medicated 1 patch topical DAILY Qty: 30 0RF Rx Instructions: leave on most painful area for up to 12 hrs Stand Alone Forms: Work/School Release Print Language: Vincentian
[2024-09-08 09:08] VITALS: BP 162/101; PULSE 83; RESP 16; TEMP 36.3; O2SAT 96
== END 2024-09-08 09:09 | disposition home or self-care (01) ==
PROVIDERS: Emergency Provider Emergency Medicine
DX: M54.50 Low back pain, unspecified (principal); I10 Essential (primary) hypertension; F17.200 Nicotine dependence, unspecified, uncomplicated; F12.90 Cannabis use, unspecified, uncomplicated
CPT/HCPCS: 99282

== ENCOUNTER 2024-09-30 11:34 | Outpatient (AMB) | payer BC, SELFPAY ==
[2024-09-30 11:53] VITALS: BP 152/98; PULSE 87; TEMP 36.3; O2SAT 98; BMI 45.6
--- NOTE | 2024-09-30 11:53 | A.OFFPC_ITS ---
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 Name: Used tablet- Accompanied by: Self / Same As Patient Allergies aspirin [ASPIRIN] Allergy (Unknown, Verified 09/30/24 12:12) UNK, anaphylaxis Medication List - Last Reconciled 09/30/24 by Ashley Diaz PA-C albuterol sulfate 90 mcg/actuation (Ventolin HFA) 2 puffs inhalation Q4-6H PRN amlodipine 5 mg PO DAILY cyclobenzaprine 10 mg PO TID PRN hydrochlorothiazide 25 mg PO DAILY lisinopril 40 mg PO DAILY Tobacco use date assessed: 09/30/24 Dental Screening Dental Screen Date: 09/30/24 Did you have a dental visit in the last 12 months?: No Did you have a dental problem in the last 6 months where you did not have access to dental care?: No HPI Establish care 2 HPI0 Details 38 year old male coming to the office fo r the first time. 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 The patient is a 38-year-old male presenting for a comprehensive health check-up and management of chronic conditions. Known history of essential hypertension; sporadically takes prescribed amlodipine, hydrochlorothiazide, and lisinopril, intending to manage this condition more consistently following new access to health insurance. Asthma is part of his medical history; the patient has not used his albuterol inhaler recently. Currently smokes one pack of cigarettes daily for 20 years and is open to smoking cessation using nicotine patches. Emergence of painful calluses on feet, attributing the cause to standing long hours at work. Positive depression screening suggests potential benefit from therapy, with the patient expressing openness to this approach. [facility] Medical History Hypertension No known health problems Surgical History No significant past surgical history Family History Mother Hypertension Father No problems noted. 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 1. Little interest or pleasure in doing things: several days 2. Feeling down, depressed, or hopeless: nearly every day 3. Trouble falling or staying asleep, or sleeping too much: nearly every day 4. Feeling tired or having little energy: nearly every day 5. Poor appetite or overeating: not at all 6. Feeling bad about yourself - or that you are a failure or have let yourself or your family down: not at all 7. Trouble concentrating on things, such as reading the newspaper or watching television: not at all 8. Moving or speaking so slowly that other people could have noticed. Or the opposite - being so fidgety or restless that you have been moving around a lot more than usual: not at all 9. Thoughts that you would be better off or of hurting yourself in some way: not at all Total score: 10 Depression Screening Interpretation: Positive (referred to counseling today declines medication ) Depression Screening Follow-up: Existing condition Depression Screening Done: Yes Source: Developed by Drs. Bolivar Angeles, Geraldine Frazier, Tim Davidson and colleagues, with an educational meera from [employer]. Thrive Questionnaire Date Thrive assessed: 09/30/24 I am a: Patient What is your living situation today?: I have a steady place to live Within the past 12 months, did the food you bought not last and you didn't have the money to get more?: Often true Within the past 12 months, did you worry whether your food would run out before you got money to buy more?: Often true Do you have trouble paying for medicines?: Yes Do you have trouble getting transportation to medical appointments?: No Do you have trouble paying your heating and electricity bill?: No Do you have trouble taking care of your child, family member or friend?: No Do you have trouble with day-to-day activities such as bathing, preparing meals, shopping, managing finances, etc.?: No Are you currently unemployed and looking for a job?: No Are you interested in more education?: Yes Please select the resources that you would like help with: None Currently or been in a relationship where the following occur: I choose not to answer THRIVE Score: 2 AUDIT C Alcohol Use Questionnaire (AUDIT-C) 1. How often do you have a drink containing alcohol?: Never Total Score: 0 MARISOL-7 AMB Questionnaire MARISOL-7 Date MARISOL - 7 assessed: 09/30/24 Feeling nervous, anxious, or on edge: 1 = Several days Not being able to stop or control worryin = Nearly every day Worrying too much about different things: 3 = Nearly every day Trouble relaxin = Nearly every day Being so restless that it is hard to sit still: 3 = Nearly every day Becoming easily annoyed or irritable: 3 = Nearly every day Feeling afraid as if something awful might happen: 3 = Nearly every day Total MARISOL-7 score (0-4 normal; 5-9 mild; 10-14 moderate; 15-21 severe): 19 Source: Developed by Drs. Bolivar Angeles, Geraldine Frazier, Tim Davidson and colleagues, with an educational meera from [employer]. MARISOL-7 Assessment Billing MARISOL-7 Assessment Tool: MARISOL-7 Assessment 80872 Review of Systems Const Denies body aches, Denies chills, Denies fever(s), Denies headache(s) and Denies poor appetite Eyes Reports no additional complaints ENT Details: Small mass behind right ear Denies dizziness and Denies headache(s) Card Denies chest pain, Denies syncope, Denies lightheadedness and Denies dyspnea Resp Denies cough and Denies dyspnea GI Denies abdominal pain, Denies nausea and Denies vomiting Reports no additional complaints Musc Details: Bilateral foot pain Denies abnormal gait and Reports back pain Skin/Breast Reports system reviewed and no additional complaints, except as documented Neuro Denies abnormal gait, Denies dizziness, Denies syncope and Denies headache(s) Psych Reports no additional complaints Physical exam (Primary Care) Vital Signs: Last Vital Signs Temp 97.3 F 09/30/24 11:53 Pulse 87 09/30/24 11:53 BP 152/98 H 09/30/24 11:53 Pulse Ox 98 09/30/24 11:53 Oxygen Delivery Method Room Air 09/30/24 11:53 BMI result Body Mass Index 45.6 Tobacco/Smoking Status: Tobacco use Status Tobacco use date assessed 09/30/24 09/30/24 12:07 Patient Tobacco Use Status Current everyday Tobacco 09/30/24 12:04 Tobacco use type Cigarette 09/30/24 12:07 e-Cigarette/Vaping Use Never Used 09/30/24 12:07 Are you ready to quit: Yes Tobacco cessation counseling provided: Yes Items discussed: Nicotine replacement Relapse Prevention: weight gain after smoking is common and discussed dietary, exercise and/or lifestyle changes Number of minutes spent counselin CPT code: 82123 - 4-10 Minutes PHQ-9: PHQ-9 Score PHQ-9: Total score 10 09/30/24 12:20 Depression Screening Interpretation: Positive (referred to counseling today declines medication ) Depression Screening Follow-up: Existing condition Thrive Assessment: Date of Thrive Assessment Date Thrive assessed 09/30/24 09/30/24 12:07 Currently or been in a relationship where the following occur: I choose not to answer Const General: cooperative, healthy appearing, comfortable and no acute distress Orientation/consciousness: patient oriented x3 HENMT Head: Yes normocephalic Head images: 2 1. small, nontender, hard mass Ears: hearing grossly normal bilaterally General nose exam: Normal external nose present Eyes General: appearance normal, both eyes and all related structures Conjunctivae: conjunctivae normal Neck Neck: Yes full ROM and Yes no lymphadenopathy Resp Effort & Inspection: normal respiratory effort Auscultation: clear to auscultation bilaterally, no crackles, no rales, no rhonchi and no wheezes Cardio Rate: regular rate Rhythm: regular rhythm Skin General skin exam: no rashes or lesions noted Neuro General: patient oriented x3 Gait exam (Neuro): Normal gait present Extrem General: Yes normal to inspection, Yes full ROM and No edema Psych Affect: normal affect Attitude: cooperative Insight: Good insight present (Psych) Judgement: Good judgement present (Psych) Coding Level of Care Code New Pt Level 4 (12908) Diagnoses Tobacco use disorder F17.200 Hypertension I10 Asthma J45.909 Back pain M54.50 Back pain laterality: bilateral Back pain location: low back pain Chronicity: acute Sciatica presence: without sciatica Anxiety F41.9 Depression F32.A Plantar fasciitis M72.2 Callus of foot L84 Sebaceous cyst L72.3 Additional Codes MARISOL-7 Assessment Billing - MARISOL-7 Assessment Tool: MARISOL-7 Assessment 97651 ([id number]) Vital Signs *Quality* - CPT code: 97889 - 4-10 Minutes ([id number]) Assessment & Plan Assessment & Plan (1) Tobacco use disorder: Code(s): F17.200 - Nicotine dependence, unspecified, uncomplicated Category: Medical Plan: Smoking cigarettes and the use of tobacco can be harmful. We discussed the importance of stopping and options to aid in smoking cessation. Nicotine replacement therapy ordered today. (2) Hypertension: Code(s): I10 - Essential (primary) hypertension Category: Medical Plan: To manage essential hypertension, medications including amlodipine, hydrochlorothiazide, and lisinopril will be prescribed, emphasizing consistent daily use. Continue on current blood pressure medication. Avoid salt intake and encourage healthy diet and regular exercise. (3) Asthma: Code(s): J45.909 - Unspecified asthma, uncomplicated Category: Medical Plan: Asthma currently controlled on present medications. Continue on albuterol as needed. Avoid triggers such as allergies. (4) Back pain: Code(s): M54.9 - Dorsalgia, unspecified Category: Medical Qualifiers: Back pain laterality: bilateral Back pain location: low back pain C hronicity: acute Sciatica presence: without sciatica Qualified Code(s): M54.50 - Low back pain, unspecified Plan: The patient's back pain related to occupational stresses is to be managed with muscle relaxants. (5) Anxiety: Code(s): F41.9 - Anxiety disorder, unspecified Category: Medical Plan: Due to a positive depression and anxiety screening, a referral to mental health services will be made. (6) Depression: Code(s): F32.A - Depression, unspecified Category: Medical Plan: Due to a positive depression screening, a referral to mental health services will be made. Declining medications at this time (7) Plantar fasciitis: Code(s): M72.2 - Plantar fascial fibromatosis Category: Medical Plan: For callus management, I suggested insoles and potential podiatry referral. (8) Callus of foot: Code(s): L84 - Corns and callosities Category: Medical Plan: For callus management, I suggested insoles and potential podiatry referral. (9) Sebaceous cyst: Code(s): L72.3 - Sebaceous cyst Category: Medical Plan: Patient having previous abscess behind the right ear do sebaceous cyst. Referral placed to General surgery as there is still a are nodule behind the right ear that he would like removed. Plan This note was constructed using voice recognition software. While every effort has been made to ensure accuracy and sheet ironworker, still areas may have been included sometimes these areas may affect the content or meeting of the given symptoms. Total time spent caring for the patient today was 30 minutes. This includes time spent before the visit reviewing the chart, time spent during the visit, and time spent after the visit and documentation. Patient was informed and verbally consented to the use of an ambient scribe for clinic note documentation during this visit. Orders: Orders 2 Complete Blood Count Auto Diff Today Z00.00 - Encounter for general adult medical examination without abnormal findings Comprehensive Met. Panel Today Z00.00 - Encounter for general adult medical examination without abnormal findings TSH reflex Free T4 Today Z00.00 - Encounter for general adult medical examination without abnormal findings Hemoglobin A1c Today Z13.1 - Encounter for screening for diabetes mellitus Free T4 (Free Thyroxine) Today Z00.00 - Encounter for general adult medical examination without abnormal findings Lipid Panel Today Z13.220 - Encounter for screening for lipoid disorders Vitamin D 25-OH Total Today Z00.00 - Encounter for general adult medical examination without abnormal findings Vitamin B12 and Folate Today Z00.00 - Encounter for general adult medical examination without abnormal findings Referrals 2 Podiatry Referral L84 - Corns and callosities, M72.2 - Plantar fascial fibromatosis General Surgery Referral L72.3 - Sebaceous cyst Counseling Referral F32.A - Depression, unspecified, F41.9 - Anxiety disorder, unspecified Medications: New 2 nicotine 1 patch transdermal DAILY 28 ea 0RF Refilled 2 amlodipine 5 mg PO DAILY 90 tabs 1RF hydrochlorothiazide 25 mg PO DAILY 90 tabs 2RF lisinopril 40 mg PO DAILY 90 tabs 1RF cyclobenzaprine 10 mg PO TID PRN 20 tabs 0RF muscle spasm Discontinued 2 prednisone Take 4 tabs x4 days, then 3 tabs x4 days, then 2 tabs x4 days, then 1 tab x4 days. discard remainder. Discontinued Reason: Patient no longer taking 10 mg PO PER PKG DIR 48 ea 0RF cephalexin (Keflex) Discontinued Reason: Patient no longer taking 500 mg (0.6667 x 750 mg) PO QID 28 caps 0RF doxycycline monohydrate Discontinued Reason: Patient no longer taking 100 mg PO BID 10 days 20 caps 0RF hydrochlorothiazide Discontinued Reason: Patient no longer taking 12.5 mg PO QAM 30 tabs 0RF acetaminophen (Tylenol) Discontinued Reason: Patient no longer taking 650 mg (2 x 325 mg) PO Q6H PRN 20 caps 0RF fever or pain cyclobenzaprine Discontinued Reason: Duplicate 10 mg PO TID PRN 15 tabs 0RF muscle spasm cyclobenzaprine Discontinued Reason: Duplicate 10 mg PO TID PRN 14 tabs 0RF muscle spasm hydrocodone-acetaminophen 5-300 mg Discontinued Reason: Patient no longer taking 1 tab PO Q6H PRN 5 tabs 0RF pain lidocaine 5% (Lidoderm) leave on most painful area for up to 12 hrs Discontinued Reason: Patient no longer taking 1 patch topical DAILY 15 ea 0RF acetaminophen (Tylenol) Discontinued Reason: Patient no longer taking 650 mg (2 x 325 mg) PO Q4H PRN 30 caps 0RF pain hydrochlorothiazide Discontinued Reason: Duplicate 25 mg PO QAM 90 tabs 0RF cephalexin Discontinued Reason: Patient no longer taking 500 mg PO Q6H 7 days 28 caps 0RF lidocaine 5% leave on most painful area for up to 12 hrs Discontinued Reason: Patient no longer taking 1 patch topical DAILY 30 ea 0RF
== END 2024-09-30 12:53 | disposition home or self-care (01) ==
LOC: HO.HMCH 11:35
DX: F17.200 Nicotine dependence, unspecified, uncomplicated (principal); I10 Essential (primary) hypertension; J45.909 Unspecified asthma, uncomplicated; M54.50 Low back pain, unspecified; F41.9 Anxiety disorder, unspecified; F32.A Depression, unspecified; M72.2 Plantar fascial fibromatosis; L84 Corns and callosities; L72.3 Sebaceous cyst

== ENCOUNTER → 2024-09-30 11:34 | Outpatient (BNVA) | payer BC, SELFPAY | DX: I10 Essential (primary) hypertension (principal); J45.909 Unspecified asthma, uncomplicated; M54.50 Low back pain, unspecified; F41.9 Anxiety disorder, unspecified; F32.A Depression, unspecified; M72.2 Plantar fascial fibromatosis; L84 Corns and callosities; L72.3 Sebaceous cyst; F17.210 Nicotine dependence, cigarettes, uncomplicated; Z79.899 Other long term (current) drug therapy | CPT/HCPCS: 96127 ==

== ENCOUNTER 2024-10-02 10:14 | Outpatient (REF) | payer BC, SELFPAY ==
[2024-10-02 10:43] LABS: MANUAL DIFF FLAG NO
[2024-10-02 11:14] LABS: Basophils Absolute Auto 0.1 X10*3/uL (0.0-0.2); Basophils Percent Auto 1.2 % (0-2); Eosinophils Absolute Auto 0.6 X10*3/uL (0.0-0.4); Eosinophils Percent Auto 6.4 % (0-4); Hematocrit 48.2 % (42.0-52.0); Hemoglobin 16.6 g/dl (14.0-18.0); Imm Gran Abs Auto 0.02 X10*3/uL (0.00-0.03); Imm Gran Pct Auto 0.2 % (0.0-0.4); Lymphocytes Absolute Auto 3.2 X10*3/uL (1.2-4.9); Lymphocytes Percent Auto 36.9 % (20-40); Mean Corpuscular HGB Conc 34.4 g/dl (31.0-36.0); Mean Corpuscular Hemoglobin 27.8 pg (27.0-33.0); Mean Corpuscular Volume 80.6 fL (80.0-98.0); Mean Platelet Volume 9.6 fL (9.4-12.4); Monocytes Absolute Auto 0.6 X10*3/uL (0.1-1.2); Monocytes Percent Auto 7.1 % (2-11); Neutrophils Absolute Auto 4.1 x10*3/uL (2.0-8.3); Neutrophils Percent Auto 48.2 % (45-73); Platelet Count 214 X10*3/uL (160-400); Red Blood Count 5.98 X10*6/uL (4.60-5.80); Red Cell Distribution Width 12.6 % (11.0-16.0); White Blood Count 8.6 X10*3/uL (4.8-10.8)
[2024-10-02 11:23] LABS: Estimated Average Glucose 114 mg/dL; Hemoglobin A1c % 5.6 % (<6.0)
[2024-10-02 11:55] LABS: Alanine Aminotransferase 34 U/L (0-40); Albumin Level 3.9 g/dL (3.5-5.0); Alkaline Phosphatase 68 U/L (39-117); Anion Gap 11 (12-20); Aspartate Amino Transferase 25 U/L (5-37); Bilirubin Total 0.6 mg/dL (0.0-1.0); Blood Urea Nitrogen 16 mg/dL (9-16); Carbon Dioxide 23 mmol/L (22-29); Chloride 108 mmol/L (96-108); Cholesterol 153 mg/dL (<200); Estimated Glomerular Filt Rate > 60; Glucose Random 100 mg/dL (60-115); HDL Cholesterol 32 mg/dL (>40); LDL Cholesterol Calculated 101 mg/dL (<100); Potassium 3.9 mmol/L (3.3-5.1); Sodium 138 mmol/L (135-145); Total Protein 7.1 g/dL (6.5-8.0); Triglycerides 100 mg/dL (<150)
[2024-10-02 12:11] LABS: Free T4 (Free Thyroxine) 0.98 ng/dL (0.71-1.85); TSH reflex Free T4 1.36 uIU/mL (0.32-4.0); Vitamin D 25-OH Total 11.4 ng/mL (>30)
[2024-10-02 12:17] LABS: Folate 6.8 ng/mL (> or = 4.0); Vitamin B12 463 pg/mL (200-900)
== END 2024-10-02 10:15 | disposition home or self-care (01) ==
LOC: HO.LAB 10:14
DX: Z00.00 Encounter for general adult medical examination without abnormal findings (principal); Z13.220 Encounter for screening for lipoid disorders; Z13.1 Encounter for screening for diabetes mellitus; Z13.6 Encounter for screening for cardiovascular disorders
CPT/HCPCS: 36415; 80053; 80061; 82306; 82607; 82746; 83036; 84439; 84443; 85025

== ENCOUNTER 2024-10-12 10:35 | Outpatient (AMB) | payer BC, SELFPAY ==
[2024-10-12 10:36] VITALS: BP 137/88; PULSE 105; O2SAT 96; BMI 45.6
--- NOTE | 2024-10-12 10:36 | A.OFFVIS_ITS ---
Vital Signs 10/12/24 10:36 Height 5 ft 11 in Weight 326 lb 11.601 oz BMI 45.6 BP 137/88 Blood Pressure Location Lt brachial Position Sitting Pulse 105 H Pulse Source Pulse Oximeter Pulse Oximetry (%) 96 Oxygen Delivery Method Room Air Intake Visit Reasons: sebaceous cyst behind the right ear Intake Note: Patient referred by pcp Ashley Diaz PA-C for cyst behind Rt ear. Patient states it is not painful and denies any discharge from the ear. Allergies aspirin [ASPIRIN] Allergy (Unknown, Verified 10/12/24 10:37) UNK, anaphylaxis HPI Comments Details: Patient presents here for follow-up status post recent treatment for a carbuncle/infected sebaceous cyst behind the right ear. He has complete resolution of the symptoms. He completed his antibiotic course with local wound care. He has never had issues before. Chart was reviewed and patient evaluate [facility] Medical History Hypertension No known health problems Surgical History No significant past surgical history Family History Mother Hypertension Father No problems noted. Son Autism Social History (Updated 10/12/24 @ 10:40 by Latanya Cyr CMA) Household Members: Significant Other Housing: House Alcohol intake: never Patient Tobacco Use Status: Current everyday Tobacco user Tobacco use type: Cigarette Cigarettes Per Day: 5 e-Cigarette/Vaping Use: Never Used Substance Use Type: Marijuana service: No Current occupational status: employed Current occupation: [employer] Cognitive needs: No Hearing needs: No Vision needs: No Physical Exam Vital Signs: Last Vital Signs Pulse 105 H 10/12/24 10:36 BP 137/88 10/12/24 10:36 Pulse Ox 96 10/12/24 10:36 Oxygen Delivery Method Room Air 10/12/24 10:36 BMI result Body Mass Index 45.6 HEENT Other: Patient was a resolve carbuncle type process involving the right postauricular area. No evidence of any fluctuance or abscess or cellulitis. Assessment & Plan Assessment & Plan (1) Infected sebaceous cyst: Code(s): L72.3 - Sebaceous cyst; L08.9 - Local infection of the skin and subcutaneous tissue, unspecified Category: Medical Plan At present, we will treat the patient conservatively patient was this process recur, patient should call the office for follow-up. No cyst excision or I&D was required at this time. All questions answered. Patient will see me p.r.n.. Coding Level of Care Code New Pt Level 4 (88723) Diagnoses Infected sebaceous cyst L72.3; L08.9
== END 2024-10-12 10:47 | disposition home or self-care (01) ==
LOC: HO.HGS 10:35
PROVIDERS: Visit Provider Surgery
DX: L72.3 Sebaceous cyst (principal); L08.9 Local infection of the skin and subcutaneous tissue, unspecified
CPT/HCPCS: 99204

== ENCOUNTER → 2024-10-12 10:35 | Outpatient (BNVA) | payer BC, SELFPAY | PROVIDERS: Visit Provider Surgery ==

== ENCOUNTER 2025-03-15 10:41 | Emergency (ER) | payer SELFPAY ==
--- NOTE | 2025-03-15 10:43 | ED_ITS ---
HPI - General Adult General Chief complaint: Abdominal Pain Stated complaint: Not feeling well Time Seen by Provider: 03/15/25 11:22 History of Present Illness ED Provider: Mike Quiles MD HPI narrative: 39-year-old male with daily marijuana smoking, hypertension with less than 24 hours of upper abdominal pain nonbloody nonbilious vomiting x3 episodes this morning upon waking and loose stool. No unusual foods, travel, recent antibiotics. No obvious sick contacts. Denies blood in the vomit or stool. Related Data Previous Rx's ?Medication ?Instructions ?Recorded albuterol sulfate 90 mcg/actuation 2 puff inhalation Q 4-6H PRN 12/08/20 aerosol inhaler (Ventolin HFA) shortness of breath or wheezing #6.7 grams amlodipine 5 mg tablet 5 mg PO DAILY #90 tabs 09/30 cyclobenzaprine 10 mg tablet 10 mg PO TID PRN muscle s pasm #20 09/30/24 tabs hydrochlorothiazide 25 mg tablet 25 mg PO DAILY #90 ta bs 09/30/24 lisinopril 40 mg tablet 40 mg PO DAILY #90 tabs 03/2 0/25 nicotine 21 mg/24 hr daily 1 patch transdermal DAILY # 28 ea 09/30/24 transdermal patch cholecalciferol (vitamin D3) 25 25 mcg PO DAILY #90 ca ps 10/04/24 mcg (1,000 unit) capsule ondansetron 4 mg disintegrating 4 mg PO Q8H PRN nausea and 03/15/25 tablet vomiting #7 tabs Allergies Allergy/AdvReac Type Severity Reaction Status Date / Time aspirin (ASPIRIN) Allergy Unknown UNK, Verified 03/15/25 10:45 anaphylaxis [facility] Past Medical History Medical History Hypertension No known health problems Surgical History No significant past surgical history Family History Family History Mother Hypertension Father No problems noted. Son Autism Social History Social History (Updated 10/12/24 @ 10:40 by Latanya Cyr CMA) Household Members: Significant Other Housing: House Alcohol intake: never Patient Tobacco Use Status: Current everyday Tobacco user Tobacco use type: Cigarette Cigarettes Per Day: 5 Smoked in Last 30 Days: No e-Cigarette/Vaping Use: Never Used Use of substances other than those prescribed or required for medical reasons: No Substance Use Type: Marijuana Advance Directives: Yes Advance Directives Information Provided: Yes Advance Directives on File: No service: No Current occupational status: employed Current occupation: [employer] Cognitive needs: No Hearing needs: No Vision needs: No Physical Exam ED Exam Exam: EXAM: Gen: Alert, awake, well appearing, well hydrated. Head: Atraumatic Eyes: Anicteric, Normal conjunctiva. ENT: Moist mucosa, no pallor. ? Neck: Supple. Skin: ?No observable rash or bruising on exposed or examined skin Respiratory: Breathing comfortably, No distress.Clear to auscultation bilaterally, symmetric chest expansion, No wheeze, rales, ronchi. Cardiovascular: Regular rate and rhythm. No murmurs or rub. Well perfused periphery, warm extremities. No edema. ? Abdominal: No focal tenderness. Soft, no objective distension. No palpable masses or obvious organomegaly. ?No guarding, no rebound tenderness or other peritoneal findings. : No flank tenderness. Neuro: Alert. Gross movement of all extremities intact. ? Psych: Calm. Cooperative. MSK: No grossly visible deformity. Vital signs: See flowsheet Vital Signs: Vital Signs - 24 hr 03/15/25 10:44 03/15/25 11:25 03/15/25 11:52 Temperature 97.4 F 98.0 F Pulse Rate 86 83 Respiratory Rate 18 18 Blood Pressure 193/98 H 188/114 H 192/121 H Pulse Oximetry 97 97 Oxygen Delivery Method Room Air Room Air 03/15/25 12:43 03/15/25 12:45 Temperature 98.1 F 98.1 F Pulse Rate 90 90 Respiratory Rate 17 17 Blood Pressure 202/114 H 202/114 H Pulse Oximetry 96 96 Oxygen Delivery Method Room Air Room Air BMI result Body Mass Index 44.9 Course Course Course Narrative: This is a Rapid Medical Examination (RME) performed by Zena Neal PA-C in triage. Full HPI, ROS, assessment and treatment plan per primary provider in the Main ED. Hx: 39 yo M hx of HTN, asthma here for eval of upper abdominal pain, vomiting, and diarrhea on waking this morning. Plan: labs, UA Reevaluation(s) Reevaluation #1: Just prior to discharge the patient was still moderately hypertensive though without symptoms of end-organ damage or hypertensive emergency. Patient will continue home meds with better nausea control close follow up with PCP recommended Medications Administered Discontinued Medications Generic Name Dose Route Start Last Admin Trade Name Eliecer PRN Reason Stop Dose Admin Amlodipine Besylate 5 mg 03/15/25 11:43 03/15/25 11:52 Amlodipine Besylate 5 Mg Tablet PO 03/15/25 11:44 5 mg ONCE ONE Administration Protocol Lisinopril 40 mg 03/15/25 11:43 03/15/25 11:52 Lisinopril 40 Mg Tablet PO 03/15/25 11:44 40 mg ONCE ONE Administration Protocol Ondansetron HCl 4 mg 03/15/25 11:22 03/15/25 11:52 Ondansetron Odt 4 Mg Tab.Edouarddis TRANSLINGU 03/15/25 11:23 4 mg ONCE ONE Administration Medical Decision Making Medical Decision Making MDM Narrative: Medical Decision Makin-year-old male overweight with daily marijuana smoking and hypertension. Did not take his meds this morning due to nausea and he is hypertensive here. He looks quite well however and was drinking a carbonated beverage on arrival. Abdomen minimally tender only in the epigastrium no rigidity no right upper quadrant/Washburn's sign. Vitals stable and normal except for hypotension which is likely chronic. I will aim for a symptomatic relief this is likely viral gastroenteritis or food-borne illness. Check electrolytes liver function tests Preliminary Favored Differential Diagnosis: Viral gastroenteritis, food-borne illness, gastritis, PUD among additional considered etiologies Testing Interpreted Independently: ?See below for details Radiology or Lab testing Results Reviewed: ?See below for details Consults: ?See below for details Independent Historians/External Chart Reviews: ?See below for details Social Determinants of Health Impacting MDM/Planning: ?See below for details Admission/Observation Consideration of admission/observation: Escalation of care including admission/observation considered Lab Data MDM Lab Attestation statement: I reviewed the patient's lab results. 03/15/25 11:02 03/15/25 11:02 Labs: Lab Results 03/15/25 03/15/25 Range/Units 11:02 11:39 WBC 9.1 (4.8-10.8) X10*3/uL RBC 5.82 H (4.60-5.80) X10*6/uL Hgb 16.2 (14.0-18.0) g/dl Hct 48.5 (42.0-52.0) % MCV 83.3 (80.0-98.0) fL MCH 27.8 (27.0-33.0) pg MCHC 33.4 (31.0-36.0) g/dl RDW 12.8 (11.0-16.0) % Plt Count 223 (160-400) X10*3/uL MPV 9.5 (9.4-12.4) fL Immature Gran % (Auto) 0.3 (0.0-0.4) % Neut % (Auto) 50.4 (45-73) % Lymph % (Auto) 34.0 (20-40) % [place] % (Auto) 7.9 (2-11) % Eos % (Auto) 6.2 H (0-4) % Baso % (Auto) 1.2 (0-2) % Lymph # (Auto) 3.1 (1.2-4.9) X10*3/uL [place] # (Auto) 0.7 (0.1-1.2) X10*3/uL Eos # (Auto) 0.6 H (0.0-0.4) X10*3/uL Baso # (Auto) 0.1 (0.0-0.2) X10*3/uL Abs Immat Gran (auto) 0.03 (0.00-0.03) X10*3/uL Absolute Neuts (auto) 4.6 (2.0-8.3) x10*3/uL Absolute Nucleated RBC 0.000 (0.0-0.012) X10*3/uL Nucleated RBC % (auto) 0.0 (0.0-0.2) /100WBC Sodium 140 (135-145) mmol/L Potassium 3.9 (3.3-5.1) mmol/L Chloride 108 (96-108) mmol/L Carbon Dioxide 25 (22-29) mmol/L Anion Gap 11 L (12-20) BUN 9 (9-16) mg/dL Creatinine 0.89 (0.5-1.4) mg/dL Estim Creat Clear Calc 163.2 Estimated GFR > 60 Random Glucose 98 (60-115) mg/dL Calcium 8.6 (8.4-10.2) mg/dL Magnesium 1.9 (1.6-2.6) mg/dL Total Bilirubin 0.4 (0.0-1.0) mg/dL AST 20 (5-37) U/L ALT 26 (0-40) U/L Alkaline Phosphatase 73 (39-117) U/L Total Protein 6.7 (6.5-8.0) g/dL Albumin 4.2 (3.5-5.0) g/dL Lipase 61 (8-78) U/L Urine Color Yellow Urine Appearance Clear Urine pH 6.0 (5.0-9.0) Ur Specific [place] 1.015 (1.005-1.025) Urine Protein Negative (Neg-Trace) mg/dL Urine Glucose (UA) Negative (Negative) mg/dL Urine Ketones Negative (Negative) mg/dL Urine Blood Negative (Negative) Urine Nitrite Negative (Negative) Ur Leukocyte Esterase Negative (Negative) Chronic Conditions Patient?s care impacted by: Hypertension Discharge Plan Discharge Clinical Impression: Vomiting Patient Disposition: Home, Self-Care Instructions: Acute Abdominal Pain (ED) Additional Instructions: _ DISCHARGE DIAGNOSES: Abdominal pain nausea vomiting and diarrhea unclear cause at this time possibly food-borne illness or viral gastroenteritis HISTORY OF PRESENTATION: Upper abdominal pain loose stool and vomiting EMERGENCY DEPARTMENT COURSE,TESTS, TREATMENTS: While in the ED today blood work was reassuring you received your home blood pressure medicines and nausea medicine DISCHARGE MEDICATIONS: ?[We have made no changes to your regular medication regimen] we added nausea medicine as needed FOLLOW-UP: ?Call your primary or general physician soon as possible to discuss your symptoms, your ED visit and to discuss follow up plans Call your primary doctor INSTRUCTIONS ?& RETURN PRECAUTIONS: If any symptoms change first call your primary physician, if it is after-hours your primary doctors office should have a provider gynaecological oncologist you can speak with. If the symptoms are severe or very concerning to you then call 911 or return to the ED. Mike Quiles MD Emergency Physician [facility] __ Instrucciones de yaw gastroenteritis Instrucciones de yaw para gastroenteritis viral ?Qu? es la gastroenteritis viral? La gastroenteritis viral es jennifer infecci?n del est?shanthi y los intestinos que causa diarrea, v?mitos, dolor abdominal y, a veces, fiebre. Suele ser jennifer enfermedad leve y autolimitada, kay la deshidrataci?n es la complicaci?n m?s importante.[1] https://pubmed.ncbi.nlm.nih.gov/63010960 [2] https://pubmed.ncbi.nlm.nih.gov/17827300 [3] https:/ /pubmed.ncbi.nlm.nih.gov/51694089 [4] https://pubmed.ncbi.nlm.nih.gov/77166593 Cuidados en casa: - Hidrataci?n: - Ofrezca l?quidos frecuentemente para prevenir la deshidrataci?n. Las soluciones de rehidrataci?n oral (SRO) son preferibles (por ejemplo, Sabiha Oral). - En ni?os con enfermedad leve, se pueden usar l?quidos donnie saurabh agua, caldos, o jugos diluidos, kay las SRO son mejores si hay signos de deshidrataci?n. [1] https://pubmed.ncbi.nlm.nih.gov/55242160 [5] https://jamanetwork.com/journals/elizabeth/fullarticle/10 .1001/elizabeth.2016.5352?utm_source=openevidence&utm_medium=referral [4] https://pubmed.ncbi.nlm.nih.gov/75967883 - Para cada episodio de v?ansley o diarrea, administre 2 mL/kg de peso por v?ansley y 10 mL/kg por diarrea, si es posible. [5] https://jamanetwork.com/journals/elizabeth/fullarticle/10.1001/elizabeth.2016.5352?utm_sou rce=openevidence&utm_medium=referral - Evite bebidas azucaradas, gaseosas y jugos no diluidos, ya que pueden empeorar la diarrea.[1] https://pubmed.ncbi.nlm.nih.gov/89825913 [5] https://jamanetwork.com/journals/elizabeth/fullarticle/10 .1001/elizabeth.2016.5352?utm_source=openevidence&utm_medium=referral [4] https://pubmed.ncbi.nlm.nih.gov/82808216 - Alimentaci?n: - No es necesario suspender la alimentaci?n. Reinicie la dieta habitual collado pronto saurabh sea tolerada. - En lactantes, contin?e con la lactancia materna o f?rmula habitual.[1] https://pubmed.ncbi.nlm.nih.gov/45591963 [4] https://pubmed.ncbi.nlm.nih.gov/18738594 - Medicamentos: - No se recomiendan antibi?ticos ni antidiarreicos en la mayor?a de los casos de gastroenteritis viral. [6] https://www.ncbi.nlm.nih.gov/pmc/articles/COH3664750/ [2] https://pubmed.ncbi.nlm.nih.gov/47362530 [7] https://wwwnc.cdc.gov/travel/yellowbook/2023/infections-diseases/norovirus [4] https://pubmed.ncbi.nlm.nih.gov/87162190 - En ni?os, los medicamentos para detener el v?ansley (antiem?ticos) saurabh ondansetr?n pueden ser ?tiles en casos seleccionados para facilitar la hidrataci?n oral, kay no se recomiendan de forma rutinaria, especialmente en menores de 4 a?os. [6] https://www.ncbi.nlm.nih.gov/pmc/articles/PBA9929416/ [1] https://pubmed.ncbi.nlm.nih.gov/59013103 [8] https://pubmed.ncbi.nlm.nih.gov/88066845 [9] https://wwwnc.cdc.gov/travel/yellowDreamHeart/2023/family/nosfave-qjv-ioxvypgz - En adultos, los antidiarreicos (saurabh loperamida) pueden usarse si no hay paul en las heces ni fiebre yaw, kay deben evitarse en ni?os y en casos de diarrea sanguinolenta.[6] https://www.ncbi.nlm.nih.gov/pmc/articles/BPG4070840/ [2] https://pubmed.ncbi.nlm.nih.gov/68725664 [7] https://wwwnc.cdc.gov/travel/yellowDreamHeart/2023/infections-diseases/norovirus [9] https://wwwnc.cdc.gov/travel/yellowDreamHeart/2023/family/uogrhyg-cnk-aevdylmw - Prevenci?n de contagio: - L?vese las miah frecuentemente con agua y jab?n, especialmente despu?s de ir al ba?o y antes de preparar alimentos. [3] https://pubmed.ncbi.nlm.nih.gov/34042677 [6] https://www.ncbi.nlm.nih.gov/pmc/articles/WIK3115965/ [10] https://pubmed.ncbi.nlm.nih.gov/44947431 - Evite preparar alimentos o acudir a la escuela/trabajo hasta al menos 24-48 horas despu?s de que los s?ntomas hayan desaparecido. [6] https://www.ncbi.nlm.nih.gov/pmc/articles/WVH0062717/ - Limpie y desinfecte superficies y objetos que hayan estado en contacto con v?ansley o heces.[3] https://pubmed.ncbi.nlm.nih.gov/57416457 [6] https://www.ncbi.nlm.nih.gov/pmc/articles/CVI4969980/ Signos de alarma: consulte al m?dico si presenta: - Signos de deshidrataci?n: boca seca, llanto sin l?grimas, ojos hundidos, orina escasa o ausente, letargo o irritabilidad. [1] https://pubmed.ncbi.nlm.nih.gov/20816988 [4] https://pubmed.ncbi.nlm.nih.gov/59512372 - V?mitos persistentes que impiden la hidrataci?n oral. - Diarrea con paul o moco. - Fiebre yaw (>38.5?C) persistente. - Dolor abdominal intenso o distensi?n abdominal. - En lactantes, cualquier disminuci?n importante en la ingesta o en la cantidad de pa?ales mojados. Prevenci?n a kevin plazo: - La vacunaci?n contra rotavirus es altamente efectiva para prevenir gastroenteritis grave en lactantes y debe ser aplicada seg?n el calendario nacional de vacunaci?n.[3] https://pubmed.ncbi.nlm.nih.gov/09651678 [6] https://www.ncbi.nlm.nih.gov/pmc/articles/QHM6123378/ [10] https://pubmed.ncbi.nlm.nih.gov/03999695 Resumen: La mayor?a de los casos de gastroenteritis viral se resuelven en pocos d?as con cuidados en casa. La hidrataci?n es la clave del tratamiento. Consulte si aparecen signos de alarma. [6] https://www.ncbi.nlm.nih.gov/pmc/articles/SAO0557853/ [1] https://pubmed.ncbi.nlm.nih.gov/44517689 [2] https://pubmed.ncbi.nlm.nih.gov/16631104 [3] https://pubmed.ncbi.nlm.nih.gov/23315962 [7] http s://wwwnc.cdc.gov/travel/yellowbook/2023/infections-diseases/norovirus [10] https://pubmed.ncbi.nlm.nih.gov/84472112 [5] https://jamanetwork.com/journals/elizabeth/fullarticle/10.1001/elizabeth.2016.5352?utm_so urce=openevidence&utm_medium=referral [8] https://pubmed.ncbi.nlm.nih.gov/00912164 [4] https://pubme d.ncbi.nlm.nih.gov/69929786 [9] https://wwwnc.cdc.gov/travel/yellowbook/2023/family/zrbvqnv-njo-nunqsihg References * Gastroenteritis in Children https://pubmed.ncbi.nlm.nih.gov/85872665 . Jovany S, Osmar E, Karen E, Carlin KAYE. [employer]. 2019;99(3):159- 165. * Acute Diarrhea https://pubmed.ncbi.nlm.nih.gov/74107648 . Gracy W, Julian Hammond. [place]. 2014;89(3):180-9. * Viral Gastroenteritis https://pubmed.ncbi.nlm.nih.gov/81672459 . B?lizette K, Jaimie MK, Samantha V, Moises DAVIDSON. Lancet ([place] [place]). 2018;392(59531):175-186. doi:10.1016/I4565-5302(23)29928-0. * Management of Acute Gastroenteritis in Children https://pubmed.ncbi.nlm.nih.gov/04009345 . Bi HIGH. [place] [employer]ician. 1999;60(9):2555-63, 2565-6. * Effect of Dilute Apple Juice and Preferred Fluids vs Electrolyte Maintenance Solution on Treatment Failure Among Children With Mild Gastroenteritis: A Randomized Clinical Trial https://jamanetwork.com/journals/elizabeth/fullarticle/10.1001/elizabeth.2016.5352?utm_s ource=openevidence&utm_medium=referral . Janey SB, Lillian AR, Boutis K, Alejandro S. ELIZABETH. 2016;315(18):1966-74. doi:10.1001/elizabeth.2016.5352. * 2017 Infectious Diseases Society of [place] Clinical Practice Guidelines for the Diagnosis and Management of Infectious Diarrhea https://www.ncbi.nlm.nih.gov/pmc/articles/EGR2187289/ . Michael AL, Guicho RK, Micheal JA, et al. Clinical Infectious Diseases : An Official Publication of the Infectious Diseases Society of [place]. 2017;65(12):e45-e80. doi:10.1093/sulma/oji680. * Norovirus https://wwwnc.cdc.gov/travel/yellowbook/2023/infections- diseases/norovirus . Timothy Posey. [facility] Yellow Book. * Update on Nonantibiotic Therapies for Acute Gastroenteritis https://pubmed.ncbi.nlm.nih.gov/47582859 . Joel A, Ean D, Janey SB. Current Opinion in Infectious Diseases. 2020;33(5):381-387. doi:10.1097/QCO.4136799188238182. * Traveling Safely with Infants & Children https://wwwnc.cdc.gov/travel/yellowbook/2023/family/qqckiso-rhx-zwaepmpk . Maria L Yang, Artis Yang, Sarita Rodney. [facility] Yellow Book. * Acute Gastroenteritis in Children of the World: What Needs to Be Done? https://pubmed.ncbi.nlm.nih.gov/07079715 . Karine Hammond, Anival J, Nikki J, et al. Journal of Pediatric Gastroenterology and Nutrition. 2020;70(5):694-701. doi:10.1097/MPG.8664628329477890. Prescriptions: New ondansetron 4 mg tablet,disintegrating 4 mg PO Q8H PRN (Reason: nausea and vomiting) Qty: 7 0RF No Action cholecalciferol (vitamin D3) 25 mcg (1,000 unit) capsule 25 mcg PO DAILY Qty: 90 3RF albuterol sulfate [Ventolin HFA] 90 mcg/actuation HFA aerosol inhaler 2 puff inhalation Q4-6H PRN (Reason: shortness of breath or wheezing) Qty: 6.7 0RF hydrochlorothiazide 25 mg tablet 25 mg PO DAILY Qty: 90 2RF amlodipine 5 mg tablet 5 mg PO DAILY Qty: 90 1RF lisinopril 40 mg tablet 40 mg PO DAILY Qty: 90 1RF nicotine 21 mg/24 hr patch 24 hour 1 patch transdermal DAILY Qty: 28 0RF cyclobenzaprine 10 mg tablet 10 mg PO TID PRN (Reason: muscle spasm) Qty: 20 0RF Stand Alone Forms: Work/School Release Interventions: ED Discharge Assessment Last Done: 03/15/25 12:45 Discharge Date/Time: 03/15/25 13:05 Print Language: Romansh
[2025-03-15 10:44] VITALS: BP 193/98; PULSE 86; RESP 18; TEMP 36.3; O2SAT 97; BMI 44.9
[2025-03-15 11:09] LABS: MANUAL DIFF FLAG NO
[2025-03-15 11:14] LABS: Hematocrit 48.5 % (42.0-52.0); Hemoglobin 16.2 g/dl (14.0-18.0); Imm Gran Abs Auto 0.03 X10*3/uL (0.00-0.03); Imm Gran Pct Auto 0.3 % (0.0-0.4); Lymphocytes Absolute Auto 3.1 X10*3/uL (1.2-4.9); Mean Corpuscular HGB Conc 33.4 g/dl (31.0-36.0); Mean Corpuscular Hemoglobin 27.8 pg (27.0-33.0); Mean Corpuscular Volume 83.3 fL (80.0-98.0); NRBC Abs Auto 0.000 X10*3/uL (0.0-0.012); NRBC Pct Auto 0.0 /100WBC (0.0-0.2); Platelet Count 223 X10*3/uL (160-400); Red Blood Count 5.82 X10*6/uL (4.60-5.80); White Blood Count 9.1 X10*3/uL (4.8-10.8)
[2025-03-15 11:25] VITALS: BP 188/114; PULSE 83; RESP 18; TEMP 36.7; O2SAT 97
[2025-03-15 11:31] LABS: Alanine Aminotransferase 26 U/L (0-40); Albumin Level 4.2 g/dL (3.5-5.0); Alkaline Phosphatase 73 U/L (39-117); Anion Gap 11 (12-20); Aspartate Amino Transferase 20 U/L (5-37); Blood Urea Nitrogen 9 mg/dL (9-16); Calcium 8.6 mg/dL (8.4-10.2); Carbon Dioxide 25 mmol/L (22-29); Chloride 108 mmol/L (96-108); Creatinine Clr Calc Pharmacy 163.2; Estimated Glomerular Filt Rate > 60; Lipase 61 U/L (8-78); Magnesium 1.9 mg/dL (1.6-2.6); Potassium 3.9 mmol/L (3.3-5.1); Sodium 140 mmol/L (135-145); Total Protein 6.7 g/dL (6.5-8.0)
[2025-03-15 11:45] LABS: Appearance Urine Clear; Glucose Urine UA Negative (Negative); PH 6.0 (5.0-9.0); Specific Gravity - Urine 1.015 (1.005-1.025)
[2025-03-15 11:52] VITALS: BP 192/121
[2025-03-15 12:43] VITALS: BP 202/114; PULSE 90; RESP 17; TEMP 36.7; O2SAT 96
[2025-03-15 12:45] VITALS: BP 202/114; PULSE 90; RESP 17; TEMP 36.7; O2SAT 96
== END 2025-03-15 13:05 | disposition home or self-care (01) ==
PROVIDERS: Physician Assistant Medical; Emergency Provider Emergency Medicine
DX: R11.10 Vomiting, unspecified (principal); R10.10 Upper abdominal pain, unspecified; I10 Essential (primary) hypertension
CPT/HCPCS: 36415; 80053; 81003; 83690; 83735; 85025; 99283; 99284

== ENCOUNTER 2025-05-04 09:11 | Emergency (ER) | payer SELFPAY ==
[2025-05-04 09:17] VITALS: BP 200/124; PULSE 84; RESP 18; TEMP 37; O2SAT 98; BMI 47.1
--- NOTE | 2025-05-04 11:10 | ED.GENADULT ---
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 HTN, anxiety, and tobacco use presenting to the emergency department today with left eye swelling / itching / pain. Patient states that he was washing his car yesterday (05/03/2025_ when he felt something sting the left eye. Patient states that ever since he has had pain and itching. Patient states that he did not take his blood pressure medications this morning. Patient denies any vision changes. Patient denies any other complaints at this time. Related Data Previous Rx's ?Medication ?Instructions ?Recorded albuterol sulfate 90 mcg/actuation 2 puff inhalation Q4-6H PRN 12/08/20 aerosol inhaler (Ventolin HFA) shortness of breath or wheezing #6.7 grams amlodipine 5 mg tablet 5 mg PO DAILY #90 tabs 09/30/24 cyclobenzaprine 10 mg tablet 10 mg PO TID PRN muscle spasm #20 09/30/24 tabs hydrochlorothiazide 25 mg tablet 25 mg PO DAILY #90 tabs 09/30/24 lisinopril 40 mg tablet 40 mg PO DAILY #90 tabs 09/30/24 nicotine 21 mg/24 hr daily 1 patch transdermal DAILY #28 ea 09/30/24 transdermal patch cholecalciferol (vitamin D3) 25 25 mcg PO DAILY #90 caps 10/04/24 mcg (1,000 unit) capsule ondansetron 4 mg disintegrating 4 mg PO Q8H PRN nausea and 03/15/25 tablet vomiting #7 tabs amoxicillin 875 mg-potassium 1 tab PO BID 7 days #14 tabs 05/04/25 clavulanate 125 mg tablet Allergies Allergy/AdvReac Type Severity Reaction Status Date / Time aspirin (ASPIRIN) Allergy Unknown UNK, Verified 05/04/25 09:18 anaphylaxis Review of Systems Constitutional: Constitutional: Reports as per HPI Eyes: Eyes: Reports as per HPI ENT: Reports as per HPI Cardiovascular: Cardiovascular: Reports as per HPI Respiratory: Respiratory: Reports as per HPI Gastrointestinal: Gastrointestinal: Reports as per HPI Genitourinary: Genitourinary: Reports as per HPI Musculoskeletal: Musculoskeletal: Reports as per HPI Integumentary/Breasts: Skin/Breast: Reports as per HPI Neurologic: Reports as per HPI Psychiatric: Psychiatric: Reports as per HPI Endocrine: Endocrine: Reports as per HPI Hematologic/Lymphatic: Hematologic/Lymphatic: Reports as per HPI Allergic/Immunologic: Allergic/Immunologic: Reports as per HPI [facility] Past Medical History Attestation statement: The following information was validated with the patient. Source: old records reviewed and nursing notes reviewed Medical History Hypertension No known health problems Surgical History No significant past surgical history Family History Family History Mother Hypertension Father No problems noted. 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 Cognitive needs: No Hearing needs: No Vision needs: No Physical Exam ED Vital Signs: Vital Signs - 24 hr 05/04/25 09:17 05/04/25 11:40 Temperature 98.6 F 98.6 F Pulse Rate 84 84 Respiratory Rate 18 18 Blood Pressure 200/124 H 200/124 H Pulse Oximetry 98 98 Oxygen Delivery Method Room Air Room Air BMI result Body Mass Index 47.1 Const General: cooperative, no acute distress, alert and awake Nutritional Appearance: well nourished Orientation/consciousness: patient oriented x3 HENMT Head: Yes normal to inspection and Yes atraumatic Ears: hearing grossly normal bilaterally and external ears normal General nose exam: Normal external nose present, no nasal discharge noted and no epistaxis Face and sinus: Yes normal facial exam, No abrasion and No laceration Mouth: Normal oral and palatal mucosa present, no drooling and no muffled voice Eyes Other: left periorbital swelling / erythema Eyelids: Yes eyelids normal Conjunctivae: conjunctivae normal Pupils: Equal, round and reactive pupils present EOM: EOMs intact bilaterally Neck Neck: Yes normal visual inspection and Yes full ROM Resp Effort & Inspection: normal respiratory effort and able to speak in complete sentences Neuro General: patient oriented x3, moves all extremities and CN's II-XI intact bilaterally Cranial nerves: Yes Equal, round and reactive pupils present Cognition (Neuro): normal cognition Extrem General: Yes normal to inspection, Yes full ROM and Yes capillary refill normal Psych Appearance: grossly normal Mental Status: mental status grossly normal Affect: normal affect Attitude: cooperative Thought process: Normal thought process present Thought content: Normal thought content present Insight: Good insight present (Psych) Medical Decision Making Medical Decision Making MDM Narrative: Patient is a 39 year old assigned male at with a history of asthma. HTN, anxiety, and tobacco use presenting to the emergency department today with left eye swelling / itching / pain. Patient's physical exam was as noted in the physical exam portion of this note and consistent with left sided periorbital swelling. Patient's clinical presentation is most consistent with left periorbital cellulitis. No evidence of corneal involvement. Patient asymptomatic HTN secondary to not taking his medication. I explained my physical exam findings to the patient. I answered all questions asked by the patient. I stressed the importance of the patient taking his medication as directed (either prescribed or as the over the counter packaging recommends). I stressed the importance of the patient following up with his primary care provider. I stressed the importance of the patient returning to the emergency department immediately if his symptoms were to worsen or if he were to develop any dizziness, shortness of breath, difficulty breathing, chest pain, blurry vision, loss of vision, nausea, vomiting, abdominal pain, fever, chills, back pain, or any other complaints. Patient verbalized agreement and understanding with this treatment plan and discharge. Differential Diagnosis Differential Diagnoses: The differential diagnosis associated with the presentation includes Left periorbital cellulitis Left periorbital swelling Admission/Observation Consideration of admission/observation: Escalation of care including admission/observation considered Patient would have been admitted to the hospital had his clinical presentation warranted hospital admission. Prescription Management I considered prescription management with: Antibiotic (patient prescribed an antibiotic for left periorbital cellulitis) Chronic Conditions Patient?s care impacted by: Hypertension (asymptomatic in the department - not medication compliant) Discharge Plan Discharge Clinical Impression: Periorbital cellulitis, HTN (hypertension) Patient Disposition: Home, Self-Care Instructions: Periorbital Cellulitis (ED), Hypertension (ED) Additional Instructions: Take your antibiotic as prescribed. IF you are prescribed home medications and/or you are taking over the counter medications at home - it is very important you continue to do so as prescribed / directed unless told otherwise. SI le recetan medicamentos y/o est? tomando medicamentos de venta cal, es muy importante que contin?e haci?ndolo seg?n lo recetado/indicado a menos que le indiquen lo contrario. Follow up with your primary care provider. Return to the emergency department immediately if your symptoms worsen or if you develop any dizziness, shortness of breath, difficulty breathing, chest pain, blurry vision, loss of vision, nausea, vomiting, abdominal pain, fever, chills, back pain, or any other complaints. Vignesh?seguimiento?con morin m?dico de atenci?n primaria. Acuda inmediatamente al servicio de urgencias si april s?ntomas empeoran o si presenta falta de aliento, dificultad para respirar, dolor tor?cico, mareos, aturdimiento, dolor de espalda, dolor abdominal, fiebre, escalofr?os o cualquier otro s?ntoma. Please see the information below about our Patient Portal. If you are not yet enrolled in the [facility] Patient Portal, you will receive an enrollment email invitation following your visit to any [facility] care setting. You may also self-enroll in the Patient Portal by visiting our website: [email or web address] The following information is required to access the Patient Portal: - Your [facility] Medical Record Number - Your personal home email address (must match what is in your electronic medical record, Registration staff can assist with this) - Name - Date of Capabilities of the Patient Portal: - Message some providers - View upcoming appointments - Access your health summary, medical history, and visit history - View current conditions and allergies - View procedure and lab results - View your medications, including guidelines, side effects, and precautions - Complete pre-appointment questionnaires requested by your provider - Ready summary reports of your office visits and procedures To access the Patient Portal Mobile Yasir, follow these directions: - Search Logly in the Yasir Store or [employer] Store - Download the Yasir - Search for [facility] - Enter your login/password Portal del paciente Si usted no esta inscrito en el portal de pacientes de [facility], recibira jennifer invitacion de inscripcion despues de morin visita al [facility] o al [facility] via correo electronico. Tambien puede inscribirse voluntariamente en el portal de pacientes visitando nuestra pagina web: [email or web address] La siguiente informacion sera requerida para acceder al portal: - Morin gary de historia medica de [facility] - Morin direccion de correo electronico personal - Nombre - Fecha de nacimiento Capacidades: Las siguientes capacidades estan disponibles en el portal de pacientes: - Enviar mensajes a algunos doctores - Verificar proximas citas - Acceso a morin historial de rocky, registro medico e historial de visitas - Connor las condiciones actuales y alergias connor procedimientos y resultados del laboratorio - Connor april medicamentos, incluyendo las pautas - Efectos secundarios y precauciones - Completar o llenar formularios / cuestionarios de - Citas solicitadas por morin doctor - Leer los resumenes de reportes medicos de april visitas y procedimientos Pearcy acceder a la aplicacion movil: - Busque Logly en la Yasir Store o [employer] Store - Descargue la aplicacion - Busque [facility] - Ingrese morin nombre de usuario / Contrasena Prescriptions: New amoxicillin-pot clavulanate 875-125 mg tablet 1 tab PO BID 7 Days Qty: 14 0RF No Action cholecalciferol (vitamin D3) 25 mcg (1,000 unit) capsule 25 mcg PO DAILY Qty: 90 3RF albuterol sulfate [Ventolin HFA] 90 mcg/actuation HFA aerosol inhaler 2 puff inhalation Q4-6H PRN (Reason: shortness of breath or wheezing) Qty: 6.7 0RF ondansetron 4 mg tablet,disintegrating 4 mg PO Q8H PRN (Reason: nausea and vomiting) Qty: 7 0RF hydrochlorothiazide 25 mg tablet 25 mg PO DAILY Qty: 90 2RF amlodipine 5 mg tablet 5 mg PO DAILY Qty: 90 1RF lisinopril 40 mg tablet 40 mg PO DAILY Qty: 90 1RF nicotine 21 mg/24 hr patch 24 hour 1 patch transdermal DAILY Qty: 28 0RF cyclobenzaprine 10 mg tablet 10 mg PO TID PRN (Reason: muscle spasm) Qty: 20 0RF Referrals: Ashley Diaz PA-C [Physician [employer], Internal Medicine] Interventions: ED Discharge Assessment Last Done: 05/04/25 11:40 Discharge Date/Time: 05/04/25 11:41 Print Language: Ukrainian
[2025-05-04 11:40] VITALS: BP 200/124; PULSE 84; RESP 18; TEMP 37; O2SAT 98
== END 2025-05-04 11:41 | disposition home or self-care (01) ==
PROVIDERS: Emergency Provider Emergency Medicine
DX: H05.012 Cellulitis of left orbit (principal); I10 Essential (primary) hypertension; F41.1 Generalized anxiety disorder; Z79.899 Other long term (current) drug therapy; F17.200 Nicotine dependence, unspecified, uncomplicated; Z71.6 Tobacco abuse counseling
CPT/HCPCS: 99282; 99283